=== PATIENT | female | born 1935 | race Caucasian/White ===

== ENCOUNTER 2016-06-06 16:06 | Observation (INO) | payer OTHER ==
--- NOTE | 2016-06-06 16:25 | EDPHY ---
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 She also tells me she had chest discomfort across her chest described as a "discomfort in her chest" she denies sharp pain, she does endorse shortness of breath. She decided come to the emergency room as her heart rate has been in the 120- 130s, chest discomfort, shortness of breath. Past Medical History:Atrial fib on Xarelto, pacemaker, Prinzmetal angina, sepsis Past Surgical History: left-sided pacemaker Social History: denies daily use of drugs alcohol tobacco products Family History: noncontributory ROS REVIEW OF SYSTEMS: A comprehensive 10 point review of systems is otherwise negative aside from elements mentioned in the history of present illness. Exam Constitutional triage nursing summary reviewed, vital signs reviewed, awake/ alert. Eyes normal conjunctivae and sclera, EOMI, PERRLA. HENT normal inspection, atraumatic, moist mucus membranes, no epistaxis, neck supple/ no meningismus, no raccoon eyes. Respiratory clear to auscultation bilaterally, normal breath sounds, no respiratory distress, no wheezing. Cardiovascular tachycardic, irregular, irregular rhythm no murmur, no edema, distal pulses normal. Gastrointestinal soft, non-tender, no rebound, no guarding, normal bowel sounds, no distension, no pulsatile mass. Genitourinary no CVA tenderness. Musculoskeletal bilateral lower extremity 1+ pretibial edema, no midline vertebral tenderness, full range of motion, no calf swelling, no tenderness of extremities, no meningismus, good pulses, neurovascularly intact. Skin pink, warm, & dry, no rash, skin atraumatic. Neurologic awake, alert and oriented x 3, AAOx3, moves all 4 extremities equally, motor intact, sensory intact, CN II-XII intact, normal cerebellar, normal vision, normal speech. Psychiatric normal mood/affect. Heme/Lymph/Immune no lymphadenopathy. Differential diagnosis includes but is not limited to: ACS, atypical chest pain , pneumothorax, pneumonia, pulmonary embolism, aortic dissection, congestive heart failure, tumor, musculoskeletal pain, esophageal pain, GERD, peptic ulcer disease, pancreatitis Medical Decision Making: this patient will have an IV established receive IV fluids gently, she will be given diltiazem 10 mg IV bolus, diltiazem drip and she is in AFib with RVR here, patient had an x-ray, troponin, blood work she will be evaluated for chest discomfort, shortness of breath, AFib with RVR. Most likely patient will need to be admitted due to her age, and having chest discomfort. Re-evaluation: EKG interpretation by me on record in [employer] system. Impression time of EKG 162, this is AFib rate of 118, AFib with RVR present. No ST elevation appreciated slight ST depression V4 V5. Otherwise unremarkable. this is different than previous EKG dated 07/01/2015 EKG interpretation by me on record in [employer] system. Impression time of EKG 172, this is sinus rhythm rate of 63 no acute ischemic changes. No longer in AFib. 175: this patient did receive 10 mg IV diltiazem. This converted her from AFib with RVR in the 130s over the sinus rhythm in the 60s.. ED x-ray chest one view: Clear lung hutchins, cardiac silhouette normal in size , mediastinum narrow, pacemaker left chest, pacemaker wires appropriate position. Image interpreted by myself. 181; re-evaluation at this time patient is resting comfortably no acute distress. Patient be admitted to the hospitalist service with AFib with RVR, fatigue, chest discomfort. Full-dose aspirin has been given to the patient, she is on Xarelto. Nitroglycerin as well. I do not appreciate acute ischemic change on her EKG and she has a negative troponin. Given her chest discomfort , age, history of Prinzmetal angina, AFib I will admitted to the hospital for ACS rule out serial enzymes most likely echo and stress test. I spoke with Dr. Abdalla who agrees to admit this patient Source: Patient - Personal History Current Tetanus/Diphtheria Vaccine: Unsure Current Tetanus Diphtheria and Acellular Pertussis (TDAP): Unsure - Medical/Surgical History Hx Asthma: No Hx Chronic Respiratory Disease: No Hx Diabetes: No Hx Cardiac Disease: Yes Hx Renal Disease: No Hx Cirrhosis: No Hx Alcoholism: No Hx HIV/AIDS: No Hx Splenectomy or Spleen Trauma: No Other PMH: HTN, [place], cardiac cath, bilat knee replacement, pacemaker-bradycardia , angina, retinal tear, CPAP, parathyroidectomy Jun 19 2015 - Social History Smoking Status: Never smoked Constitutional: Initial Vital Signs Temperature (C) 36.2 C 06/06/16 16:09 Heart Rate 135 H 06/06/16 16:09 Respiratory Rate 14 06/06/16 16:09 Blood Pressure 148/92 H 06/06/16 16:09 O2 Sat (%) 98 06/06/16 16:09 O2 Delivery Mode Room Air Allergies/Adverse Reactions: amlodipine besylate [From Norvas] Allergy (Severe, Verified 12/13/15 08:37) Rash adhesive tape Allergy (Intermediate, Verified 12/13/15 08:37) ITCHING BURNING RED RASH apixaban Allergy (Intermediate, Unverified 06/06/16 17:16) Other-Enter Comments iodine [Iodine] Allergy (Unknown, Verified 06/06/16 17:59) Unknown contrast Allergy (Severe, Uncoded 06/06/16 17:59) Anaphylaxis Home Medications: Medication Instructions Recorded Diltiazem HCl [Diltiazem 24Hr Cd] 240 mg PO BID 12/11/11 Loratadine [Claritin 10 mg] 10 mg PO DAILY PRN 12/11/11 Diclofenac Sodium [Voltaren Gel 1 mahnaz TP DAILY PRN 02/26/15 (*)] Hydrochlorothiazide [HCTZ (*)] 12.5 mg PO DAILY18 02/26/15 Multivitamins [Multivitamin (*)] 1 each PO DAILY 02/26/15 Calcium Carbonate [Tums 500MG (*)] 500 mg PO DAILY PRN 06/06/16 Levothyroxine [Synthroid 50 mcg 50 mcg PO DAILY06 06/06/16 (*)] Rivaroxaban [Xarelto] 20 mg PO DAILY@18 06/06/16 Medical Decision Making - Data Points Laboratory Results: Laboratory Results 06/06/16 16:36 06/06/16 16:36 06/06/16 16:36 WBC 11.23 H 10^3/uL (3.80-9.50) RBC 4.68 10^6/uL (4.18-5.33) Hgb 14.3 g/dL (12.6-16.3) Hct 42.2 % (38.0-47.0) MCV 90.2 fL (81.5-99.8) MCH 30.6 pg (27.9-34.1) MCHC 33.9 g/dL (32.4-36.7) RDW 14.6 % (11.5-15.2) Plt Count 296 10^3/uL (150-400) MPV 9.2 fL (8.7-11.7) Neut % (Auto) 42.8 % (39.3-74.2) Lymph % (Auto) 46.6 H % (15.0-45.0) [place] % (Auto) 7.3 % (4.5-13.0) Eos % (Auto) 2.3 % (0.6-7.6) Baso % (Auto) 0.8 % (0.3-1.7) Nucleat RBC Rel Count 0.0 % (0.0-0.2) Absolute Neuts (auto) 4.81 10^3/uL (1.70-6.50) Absolute Lymphs (auto) 5.23 H 10^3/uL (1.00-3.00) Absolute Monos (auto) 0.82 H 10^3/uL (0.30-0.80) Absolute Eos (auto) 0.26 10^3/uL (0.03-0.40) Absolute Basos (auto) 0.09 10^3/uL (0.02-0.10) Absolute Nucleated RBC 0.00 10^3/uL (0-0.01) Immature Gran % 0.2 % (0.0-1.1) Immature Gran # 0.02 10^3/uL (0.00-0.10) PT 15.5 H SEC (12.0-15.0) INR 1.23 H (0.83-1.16) APTT 38.4 H SEC (23.0-38.0) D-Dimer 0.33 ug/mLFEU (0.00-0.50) Sodium 138 mEq/L (134-144) Potassium 3.6 mEq/L (3.5-5.2) Chloride 97 mEq/L (97-110) Carbon Dioxide 26 mEq/l (22-31) Anion Gap 15 mEq/L (8-16) BUN 28 H mg/dL (7-23) Creatinine 1.1 H mg/dL (0.6-1.0) Estimated GFR 48 Glucose 159 H mg/dL (70-100) Calcium 9.9 mg/dL (8.5-10.4) Magnesium 2.0 mg/dL (1.6-2.3) Total Bilirubin 0.5 mg/dL (0.1-1.4) Conjugated Bilirubin 0.5 mg/dL (0.0-0.5) Unconjugated Bilirubin 0.0 mg/dL (0.0-1.1) AST 22 IU/L (14-46) ALT 36 IU/L (9-52) Alkaline Phosphatase 110 IU/L (38-126) Creatine Kinase 92 IU/L (0-156) CK-MB (CK-2) Fraction 1.87 ng/mL (0-3.19) Troponin I < 0.012 ng/mL (0-0.034) NT-Pro-B Natriuret Pep 509 H pg/mL (0-450) Total Protein 7.6 g/dL (6.3-8.2) Albumin 4.6 g/dL (3.5-5.0) Lipase 57.0 IU/L (23-300) Medications Given: Discontinued Medications Diltiazem HCl (Cardizem 25 Mg/5 Ml Vial) 10 mg IVP EDNOW ONE Stop: 06/06/16 16:44 Last Admin: 06/06/16 16:54 Dose: 10 mg Sodium Chloride (Ns) 1,000 mls @ 0 mls/hr IV ONCE ONE PRN Reason: As Directed Stop: 06/06/16 16:33 Last Admin: 06/06/16 16:41 Dose: 1,000 mls Departure - Departure Disposition: [facility] Inpatient Acute Clinical Impression: Atrial fibrillation with rapid ventricular response, Chest discomfort Condition: Fair
--- NOTE | 2016-06-06 16:28 | CPEKG ---
Heart Rate: 118 RR Interval: 508 QRSD Interval: 86 QT Interval: 344 QTC Interval: 483 QRS [place]: -43 T Wave [place]: 111 EKG Severity - ABNORMAL ECG - EKG Impression: ATRIAL FIBRILLATION EKG Impression: LEFT ANTERIOR FASCICULAR BLOCK EKG Impression: ABNORMAL T, CONSIDER ISCHEMIA, LATERAL LEADS Electronically Signed By: Chan Ramirez 06-Jun-2016 21:18:04
[2016-06-06] MEDS ORDERED: NS 1,000 ML IV ONE (16:32)
[2016-06-06 16:40] LABS: % IMMATURE GRANULYOCYTES 0.2 % (0.0-1.1); ABSOLUTE IMMATURE GRANULOCYTES 0.02 10^3/uL (0.00-0.10); ADD DIFF? NO; ADD MORPH? NO; ADD SCAN? NO; ATYPICAL LYMPHOCYTE FLAG 0 (0-99); FRAGMENT RBC FLAG 0 (0-99); HEMATOCRIT 42.2 % (38.0-47.0); HEMOGLOBIN 14.3 g/dL (12.6-16.3); LEFT SHIFT FLG 0 (0-99); LIPEMIA HEMOLYSIS FLAG 90 (0-99); MEAN CELL HEMOGLOBIN 30.6 pg (27.9-34.1); MEAN CELL HEMOGLOBIN CONCENTR. 33.9 g/dL (32.4-36.7); MEAN CELL VOLUME 90.2 fL (81.5-99.8); MEAN PLATELET VOLUME 9.2 fL (8.7-11.7); PLATELET CLUMPS FLAG 10 (0-99); PLATELET COUNT 296 10^3/uL (150-400); RED BLOOD CELL COUNT 4.68 10^6/uL (4.18-5.33); RED CELL DISTRIBUTION WIDTH 14.6 % (11.5-15.2)
[2016-06-06] MEDS ORDERED: DILTIAZEM 25 MG/5 ML VIAL IVP ONE (16:43)
[2016-06-06] MEDS ORDERED: DILTIAZEM 125 MG in D5W 125 ML IV ONE (16:43)
[2016-06-06 16:50] LABS: INR 1.23 (0.83-1.16); PROTIME(PATIENT) 15.5 SEC (12.0-15.0)
[2016-06-06 16:51] LABS: APTT 38.4 SEC (23.0-38.0)
[2016-06-06 16:57] LABS: ALANINE AMINOTRANSFERASE 36 IU/L (9-52); ALBUMIN 4.6 g/dL (3.5-5.0); ALKALINE PHOSPHATASE 110 IU/L (38-126); ANION GAP 15 mEq/L (8-16); ASPARTATE AMINOTRANSFERASE 22 IU/L (14-46); BILIRUBIN,TOTAL 0.5 mg/dL (0.1-1.4); BILIRUBIN-CONJUGATED 0.5 mg/dL (0.0-0.5); CALCIUM 9.9 mg/dL (8.5-10.4); CARBON DIOXIDE 26 mEq/l (22-31); CHLORIDE 97 mEq/L (97-110); CREATININE 1.1 mg/dL (0.6-1.0); GLOMERULAR FILTRATION RATE 48; GLUCOSE 159 mg/dL (70-100); POTASSIUM 3.6 mEq/L (3.5-5.2); SODIUM 138 mEq/L (134-144); TOTAL PROTEIN 7.6 g/dL (6.3-8.2)
--- NOTE | 2016-06-06 17:05 | DX ---
AP portable chest. June 06, 2016. 1653 hour Indication: chest discomfort. Comparison December 13, 2015. Findings: The lungs are clear. The heart size is normal. A dual-lead pacer is unchanged. Degenerative changes of the shoulders are again present. Impression: no acute cardiopulmonary process
[2016-06-06 17:09] LABS: CREATINE KINASE-MB FRACTION 1.87 ng/mL (0-3.19); TROPONIN I < 0.012 ng/mL (0-0.034)
--- NOTE | 2016-06-06 17:24 | CPEKG ---
Heart Rate: 63 RR Interval: 952 P-R Interval: 184 QRSD Interval: 88 QT Interval: 432 QTC Interval: 443 P [place]: 51 QRS [place]: -38 T Wave [place]: 65 EKG Severity - OTHERWISE NORMAL ECG - EKG Impression: SINUS RHYTHM EKG Impression: LEFT AXIS DEVIATION Electronically Signed By: Chan Ramirez 06-Jun-2016 21:18:04
[2016-06-06] MEDS ORDERED: ASPIRIN EC 325 MG TAB PO ONE (18:01)
[2016-06-06] MEDS ORDERED: NITROGLYCERIN 0.4 MG BTL SL ONE (18:08)
[2016-06-06] MEDS ORDERED: NON-FORMULARY NEW DRUG (Diclofenac Sodium [Voltaren Gel (*)] 1 APP) TP PRN (18:39)
[2016-06-06] MEDS ORDERED: CALCIUM CARBONATE 500 MG CHEWABLE TAB PO PRN (18:39)
[2016-06-06] MEDS ORDERED: NON-FORMULARY NEW DRUG (Loratadine [Claritin 10 Mg] 10 MG) PO PRN (18:39)
[2016-06-06] MEDS ORDERED: RIVAROXABAN 20 MG TAB PO SCH (18:40)
[2016-06-06] MEDS ORDERED: DILTIAZEM 30 MG TAB PO PRN (18:41)
--- NOTE | 2016-06-06 20:00 | GHP ---
[f rep st] HISTORY AND PHYSICAL DATE OF ADMISSION: 06/06/2016 CHIEF COMPLAINT: Palpitations. HISTORY OF PRESENT ILLNESS: The patient is an 80-year-old with a history significant for sick sinus syndrome and atrial fibrillation, status post pacemaker placement. She has been on diltiazem with fa irly good control. She typically is bradycardic with a heart rate in the 50s. The patient fell this morning. She was down in the basement, and she tripped over a box and fell onto some other boxes, e ventually landing on her back. She was pretty shaken up by the fall, injured her knee, but otherwise no significant injuries. She did not hit her head. She came upstairs, complained to her ab out her fall, and just felt unwell for the rest of the day. She continued to feel poorly and laid do wn about 3 p.m., when she noticed that she was getting short of breath. She started to note some pal pitations and decided to check her heart rate and blood pressure, at which time both were elevated. She tried to calm down, rechecked her blood pressure and pulse. Her blood pressure improved, but her heart rate was still increased and getting faster. About this time, her came home from the office and, since she was still short of breath and had a little bit of chest discomfort, she opted t o go to the emergency department. She states that her chest discomfort was not necessarily pain; it felt more like she had a chest cold. She denies chest pressure, chest pain, or even chest tightness. She has also have a little bit of swelling in her legs yesterday due to increased salt intake over the holidays. She also thinks she may have eaten a little more than usual over the holidays. She has a history of thyroid disease. She recently increased her Synthroid dose from 37.5 to 50 mcg daily. She ran out of her medication before the holidays. She was unable to get it refill ed, so she started taking her 's medicine, which was 75 mcg tablets. She was taking 2/3 of a tablet for several days and got her prescription refilled last week and has been on a stable dose ove r the last week. All in all, she thinks she has been on 50 mcg for at least a couple months. REVIEW OF SYSTEMS: A 10-point review of systems was done with pertinent positives present in the HPI . PAST MEDICAL HISTORY: 1. History of UT with normal angiogram, thought secondary to coronary spasm. 2. Hypothyroidism. 3. Atrial fibrillation. 4. Sick sinus syndrome, status post pacemaker placement. Typical heart rate in the 50s. 5. Sleep apnea, on CPAP. 6. Osteoarthritis. 7. Seasonal allergies. MEDICATIONS: These include Tums, Xarelto 20 mg daily, multivitamin, Claritin 10 mg as needed, Synthr oid 50 mcg daily, hydrochlorothiazide 12.5 daily, diltiazem 240 p.o. b.i.d., and Voltaren gel as need ed topically. ALLERGIES: To Norvasc, adhesive tape, apixaban, iodine, and contrast. FAMILY HISTORY: Mother from Alzheimer's disease. There was heart disease on her father's side of the family. SOCIAL HISTORY: She is . She denies tobacco use and rarely drinks alcohol, although did have some hard cider last night. PHYSICAL EXAMINATION: VITAL SIGNS: She is afebrile. Heart rate on admission was 135. She was give n 10 mg of IV diltiazem and converted to sinus rhythm with a heart rate of 62, blood pressure 135/62. She is 92% on room air. GENERAL: She is a pleasant 80-year-old woman. She is in no distress. Sh e is alert and oriented. Her speech is clear and fluent. HEENT: Atraumatic. Pupils equal, extraoc ular movements intact. Mucous membranes moist. Oropharynx clear. NECK: Supple. No adenopathy. T hyroid is within normal limits. HEART: Regular rate and rhythm. No significant murmur, gallop, or rub. She does have a pacemaker on her left chest wall. LUNGS: Clear to auscultation. No wheeze, r honchi, or rales. ABDOMEN: Soft, nontender, nondistended. No masses. EXTREMITIES: Trace edema bi lateral without clubbing or cyanosis. MUSCULOSKELETAL: No joint deformities, no significant joint e ffusions. SKIN: Intact, no rash. NEUROLOGIC: Exam is intact. LABORATORY DATA: CBC shows a white count of 11.23. H and H and platelet count are normal. INR is 1 .23. Electrolytes are normal. BUN 28 with a creatinine of 1.1. Glucose 159. The rest of her left LFTs are normal. Electrocardiogram, personally reviewed and interpreted, shows sinus rhythm with a h eart rate of 63. Electrocardiogram on admission, personally reviewed and interpreted, shows atrial f ibrillation with a heart rate of 118. Chest x-ray, personally reviewed and interpreted, shows no acu te cardiopulmonary process. ASSESSMENT AND PLAN: An 80-year-old comes in feeling generally bad with palpitations and found to be in rapid atrial fibrillation. She has since converted to sinus rhythm. 1. Atrial fibrillation in a patient with a history of sick sinus syndrome associated with shortness of breath and some chest discomfort. I suspect all of today's symptoms are related to her atrial fib rillation rather than acute coronary syndrome, but given her history, we will go ahead and monitor he r overnight, check 2 more troponins and an EKG in the a.m. If she remains in sinus rhythm and her ca rdiac workup is unremarkable, she can likely be discharged home with followup with Dr. Eliazar Silverio. If she has recurrent atrial fibrillation, we will do a trial of oral diltiazem short-acting as neede d. 2. Hypothyroidism, on replacement: We will repeat a TSH at this time. Continue her increased dose of 50 mcg daily. 3. Sleep apnea: We will attempt to get her CPAP machine functioning for tonight. 4. The rest of her medical issues are stable. 5. Last deep venous thrombosis prophylaxis: The patient is anticoagulated with Xarelto. /[id number]/MODL
[2016-06-06] MEDS ORDERED: CETIRIZINE 10 MG TAB PO PRN (20:22)
[2016-06-06] MEDS ORDERED: NON-FORMULARY NEW DRUG (Diltiazem Hcl [Diltiazem 24hr Cd] 240 MG) PO SCH (21:00)
[2016-06-06] MEDS ORDERED: HYDROCHLOROTHIAZIDE 12.5 MG CAP PO SCH (22:00)
[2016-06-06] MEDS: DILTIAZEM CD 120 MG CAP PO SCH (22:01)
[2016-06-07] MEDS ORDERED: LEVOTHYROXINE 50 MCG TAB PO SCH (06:00)
[2016-06-07] MEDS: DILTIAZEM CD 120 MG CAP PO SCH (08:28)
--- NOTE | 2016-06-07 08:57 | CPEKG ---
Heart Rate: 54 RR Interval: 1111 P-R Interval: 176 QRSD Interval: 88 QT Interval: 468 QTC Interval: 444 P [place]: 13 QRS [place]: -35 T Wave [place]: 70 EKG Severity - OTHERWISE NORMAL ECG - EKG Impression: SINUS RHYTHM EKG Impression: LEFT AXIS DEVIATION Electronically Signed By: Deny Sanchez 07-Jun-2016 21:09:40
[2016-06-07] MEDS ORDERED: MULTIVITAMINS 1 EACH TAB PO SCH (09:00)
[2016-06-07 11:41] VITALS: BP 146/64; PULSE 55; RESP 18; TEMP 98.4; O2SAT 90
--- NOTE | 2016-06-07 14:42 | HOSPPROG ---
Hospitalist Progress Note Assessment/Plan: 80 yo F w known AF here w rapid AF AF: converted dispo: home today Subjective: converted. anxious for dc Objective: Vital Signs Temp Pulse Resp BP Pulse Ox 36.9 C 55 L 18 146/64 H 90 L 06/07/16 11:37 06/07/16 11:37 06/07/16 11:37 06/07/16 11:37 06/07/16 11:37 06/06/16 06/07/16 06/08/16 05:59 05:59 05:59 Intake Total 1300 Balance 1300 PT 15.5 SEC (12.0-15.0) H 06/06/16 16:36 INR 1.23 (0.83-1.16) H 06/06/16 16:36 - Physical Exam Constitutional: no apparent distress, appears nourished Eyes: PERRL, anicteric sclera Ears, Nose, Mouth, Throat: hearing normal, ears appear normal Cardiovascular: regular rate and rhythym, no murmur, rub, or gallop Respiratory: no respiratory distress, no rales or rhonchi Gastrointestinal: normoactive bowel sounds, soft, non-tender abdomen Genitourinary: No espinoza in urethra Skin: warm, normal color Musculoskeletal: full muscle strength Neurologic: AAOx3 Psychiatric: interacting appropriately ICD10 Worksheet Patient Problems: Problems Problem Status Diagnosed Atrial fibrillation with RVR Acute Chest discomfort Acute Dizziness Acute
--- NOTE | 2016-06-07 15:12 | GDS ---
[f rep st] DISCHARGE SUMMARY DISCHARGE DIAGNOSES: 1. Symptomatic rapid atrial fibrillation. 2. Mechanical fall. 3. History of atrial fibrillation. 4. Pacemaker. 5. Hypothyroidism. HOSPITAL COURSE: Please see admission history and physical by Dr. Yessy Abdalla. The patient present ed with symptomatic atrial fibrillation after a fall. EKG confirmed this. She did not have chest pa in. She received some IV diltiazem and then some oral diltiazem, and she converted on her own. She was discharged home. She has had atrial fibrillation for a long time and is on long-acting diltiazem, as well as anticoagu lation for this. This was her first symptomatic episode. I have given her a prescription for 30 mg of diltiazem to be taken q.2 hours x2 doses for recurrent, symptomatic atrial fibrillation. /[id number]/MODL
[2016-06-07] MEDS ORDERED: HYDROCHLOROTHIAZIDE 12.5 MG CAP PO SCH (18:00)
== END 2016-06-07 15:14 | disposition home or self-care (01) ==
LOC: INTOOBSV 18:10 → F2W 20:12
PROVIDERS: ADMIT Internal Medicine; ATTEND Internal Medicine
DX: I48.91 Unspecified atrial fibrillation (principal); E03.9 Hypothyroidism, unspecified; I25.2 Old myocardial infarction; Z95.0 Presence of cardiac pacemaker; G47.33 Obstructive sleep apnea (adult) (pediatric)
CPT/HCPCS: 71010; 93005; G0378

== ENCOUNTER 2016-10-28 06:02 | Observation (INO) | payer OTHER ==
--- NOTE | 2016-10-28 06:12 | CPEKG ---
Heart Rate: 53 RR Interval: 1132 P-R Interval: 184 QRSD Interval: 86 QT Interval: 440 QTC Interval: 414 QRS [place]: -25 T Wave [place]: 61 EKG Severity - ABNORMAL ECG - EKG Impression: ATRIAL-PACED RHYTHM EKG Impression: BORDERLINE LEFT AXIS DEVIATION Electronically Signed By: Wendy Jaime 28-Oct-2016 07:27:13
[2016-10-28 06:31] LABS: % IMMATURE GRANULYOCYTES 0.4 % (0.0-1.1); ABSOLUTE IMMATURE GRANULOCYTES 0.05 10^3/uL (0.00-0.10); ADD DIFF? NO; ADD MORPH? NO; ADD SCAN? NO; ATYPICAL LYMPHOCYTE FLAG 10 (0-99); FRAGMENT RBC FLAG 0 (0-99); HEMATOCRIT 37.8 % (38.0-47.0); HEMOGLOBIN 12.7 g/dL (12.6-16.3); LEFT SHIFT FLG 0 (0-99); LIPEMIA HEMOLYSIS FLAG 80 (0-99); MEAN CELL HEMOGLOBIN 30.8 pg (27.9-34.1); MEAN CELL HEMOGLOBIN CONCENTR. 33.6 g/dL (32.4-36.7); MEAN CELL VOLUME 91.5 fL (81.5-99.8); MEAN PLATELET VOLUME 9.6 fL (8.7-11.7); PLATELET CLUMPS FLAG 0 (0-99); PLATELET COUNT 277 10^3/uL (150-400); RED BLOOD CELL COUNT 4.13 10^6/uL (4.18-5.33); RED CELL DISTRIBUTION WIDTH 14.3 % (11.5-15.2)
[2016-10-28] MEDS ORDERED: ASPIRIN 325 MG TAB PO ONE (06:32)
[2016-10-28] MEDS ORDERED: IBUPROFEN 200 MG TAB PO ONE (06:32)
--- NOTE | 2016-10-28 06:37 | EDPHY ---
H & P Stated Complaint: CHEST PAIN SINCE MIDNIGHT, SHARP NON RADIATING Time Seen by Provider: 10/28/16 06:14 HPI/ROS: HPI The patient presents with chest pain which began at midnight tonight when she was up using the bathroom. The pain is sharp, constant, in her mid chest, does not radiate. It is worse when she sits forward or lies back or if she takes a deep breath. She does not have any shortness of breath, nausea, vomiting, dizziness or diaphoresis. She has not had a cough or fever. She rates the pain as 4/10. She had a similar pain in June of 2015 which improved on its own. She is currently on Xarelto for atrial fibrillation.. REVIEW OF SYSTEMS Constitutional: No fever, no chills. Eyes: No discharge. ENT: No sore throat. Cardiovascular: See HPI Respiratory: No cough, no shortness of breath. Gastrointestinal: No abdominal pain, no vomiting. Genitourinary: No hematuria. Musculoskeletal: No back pain. Skin: No rashes. Neurological: No headache. PMHx: Atrial fibrillation on Xarelto, pacer in place, history of TX with negative cardiac catheterization, thought to be vaso spasm, followed by Dr. Silverio of [facility] Hx: Lives at home with her PHYSICAL General Appearance: Alert, no distress Eyes: Pupils equal and round no pallor or injection ENT, Mouth: Mucous membranes moist Respiratory: There are no retractions, lungs are clear to auscultation Cardiovascular: Regular rate and rhythm Gastrointestinal: Abdomen is soft and non-tender, no masses, bowel sounds normal Neurological: A&O, moves all extremities Skin: Warm and dry, no rashes Musculoskeletal: Neck is supple non tender, no chest wall tenderness Extremities: symmetrical, full range of motion Psychiatric: Patient is oriented X 3, there is no agitation Source: Patient Exam Limitations: No limitations - Personal History Current Tetanus/Diphtheria Vaccine: Unsure Current Tetanus Diphtheria and Acellular Pertussis (TDAP): Unsure - Medical/Surgical History Hx Asthma: No Hx Chronic Respiratory Disease: No Hx Diabetes: No Hx Cardiac Disease: Yes Hx Renal Disease: No Hx Cirrhosis: No Hx Alcoholism: No Hx HIV/AIDS: No Hx Splenectomy or Spleen Trauma: No Other PMH: HTN, TX, cardiac cath, bilat partial knee replacement, pacemaker- bradycardia, angina, retinal tear, CPAP, parathyroidectomy Jun 19 2015 - Social History Smoking Status: Never smoked Constitutional: Initial Vital Signs Temperature (C) 37.0 C 10/28/16 06:05 Heart Rate 54 L 10/28/16 06:05 Respiratory Rate 16 10/28/16 06:05 Blood Pressure 130/57 H 10/28/16 06:05 O2 Sat (%) 96 10/28/16 06:05 O2 Delivery Mode Room Air Allergies/Adverse Reactions: amlodipine besylate [From Norvasc] Allergy (Severe, Verified 12/13/15 08:37) Rash adhesive tape Allergy (Intermediate, Verified 12/13/15 08:37) ITCHING BURNING RED RASH apixaban Allergy (Intermediate, Verified 06/06/16 20:55) Other-Enter Comments iodine [Iodine] Allergy (Unknown, Verified 06/06/16 17:59) Unknown contrast Allergy (Severe, Uncoded 06/06/16 17:59) Anaphylaxis Home Medications: Medication Instructions Recorded Diltiazem HCl [Diltiazem 24Hr Cd] 240 mg PO BID 12/11/11 Loratadine [Claritin 10 mg] 10 mg PO DAILY PRN 12/11/11 Diclofenac Sodium [Voltaren Gel 1 mahnaz TP DAILY PRN 02/26/15 (*)] Hydrochlorothiazide [HCTZ (*)] 12.5 mg PO DAILY18 02/26/15 Multivitamins [Multivitamin (*)] 1 each PO DAILY 02/26/15 Calcium Carbonate [Tums 500MG (*)] 500 mg PO DAILY PRN 06/06/16 Levothyroxine [Synthroid 50 mcg 50 mcg PO DAILY06 06/06/16 (*)] Rivaroxaban [Xarelto] 20 mg PO DAILY@18 06/06/16 Diltiazem HCl 30 mg PO Q2 PRN #20 tablet 06/07/16 Medical Decision Making - Diagnostics EKG Interpretation: EKG: Complete interpretation has been separately recorded in the [facility] archive. Summary impression: Atrially paced rhythm with no sign of ischemia. Imaging Results: Chest x-ray two view shows no infiltrate, no cardiomegaly, interpreted by me, radiology interpretation is pending ED Course/Re-evaluation: In the emergency room, the patient was given ibuprofen and aspirin for her pain. Labs and studies were unremarkable except for an elevated troponin. Because of this, the patient should be admitted for further monitoring. I have discussed the case with Dr. Geronimo of the hospitalist service who will come to admit the patient. I have ordered her a bed in the hospital. Differential Diagnosis: This is an 81-year-old female with history of atrial fibrillation, TX thought to be related to vaso spasm who presents with chest pain since midnight tonight , it is not exertional, sharp in nature, worse with changes in position. Her pain is ongoing. Differential diagnosis includes ACS, costochondritis, pleurisy , pericardial effusion. Less likely PE given that she is currently anticoagulated on Xarelto. - Data Points Laboratory Results: Laboratory Results 10/28/16 06:20 10/28/16 10/28/16 06:20 06:20 WBC 13.89 10^3/uL H 10^3/uL (3.80-9.50) RBC 4.13 10^6/uL L 10^6/uL (4.18-5.33) Hgb 12.7 g/dL g/dL (12.6-16.3) Hct 37.8 % L % (38.0-47.0) MCV 91.5 fL fL (81.5-99.8) MCH 30.8 pg pg (27.9-34.1) MCHC 33.6 g/dL g/dL (32.4-36.7) RDW 14.3 % % (11.5-15.2) Plt Count 277 10^3/uL 10^3/uL (150-400) MPV 9.6 fL fL (8.7-11.7) Neut % (Auto) 62.7 % % (39.3-74.2) Lymph % (Auto) 27.8 % % (15.0-45.0) Woodson % (Auto) 7.5 % % (4.5-13.0) Eos % (Auto) 1.0 % % (0.6-7.6) Baso % (Auto) 0.6 % % (0.3-1.7) Nucleat RBC Rel Count 0.0 % % (0.0-0.2) Absolute Neuts (auto) 8.72 10^3/uL H 10^3/uL (1.70-6.50) Absolute Lymphs (auto) 3.86 10^3/uL H 10^3/uL (1.00-3.00) Absolute Monos (auto) 1.04 10^3/uL H 10^3/uL (0.30-0.80) Absolute Eos (auto) 0.14 10^3/uL 10^3/uL (0.03-0.40) Absolute Basos (auto) 0.08 10^3/uL 10^3/uL (0.02-0.10) Absolute Nucleated RBC 0.00 10^3/uL 10^3/uL (0-0.01) Immature Gran % 0.4 % % (0.0-1.1) Immature Gran # 0.05 10^3/uL 10^3/uL (0.00-0.10) Sodium Pending Potassium Pending Chloride Pending Carbon Dioxide Pending Anion Gap Pending BUN Pending Creatinine Pending Estimated GFR Pending Glucose Pending Calcium Pending Troponin I 0.038 ng/mL H ng/mL (0-0.034) Medications Given: Discontinued Medications Aspirin (Aspirin) 325 mg PO EDNOW ONE Stop: 10/28/16 06:33 Last Admin: 10/28/16 06:30 Dose: 325 mg Ibuprofen (Motrin) 400 mg PO EDNOW ONE Stop: 10/28/16 06:33 Last Admin: 10/28/16 06:30 Dose: 400 mg Departure - Departure Disposition: [facility] Inpatient Acute Clinical Impression: Elevated troponin Chest pain Qualifiers: Chest pain type: unspecified Qualified Code(s): R07.9 - Chest pain, unspecified Atrial fibrillation Qualifiers: Atrial fibrillation type: chronic Qualified Code(s): I48.2 - Chronic atrial fibrillation Condition: Fair Referrals: SUREKHA BISHOP [Primary Care Provider] - As per Instructions
[2016-10-28 07:12] LABS: TROPONIN I 0.015 ng/mL (0-0.034)
[2016-10-28 07:14] LABS: ANION GAP 12 mEq/L (8-16); CALCIUM 9.4 mg/dL (8.5-10.4); CARBON DIOXIDE 23 mEq/l (22-31); CHLORIDE 98 mEq/L (97-110); GLOMERULAR FILTRATION RATE 53; GLUCOSE 104 mg/dL (70-100); POTASSIUM 4.5 mEq/L (3.5-5.2); SODIUM 133 mEq/L (134-144)
[2016-10-28] MEDS ORDERED: ONDANSETRON DISINTEGRATING 4 MG TAB PO PRN (07:25)
[2016-10-28] MEDS ORDERED: ONDANSETRON 4 MG/2 ML VIAL IVP PRN (07:25)
[2016-10-28] MEDS ORDERED: ACETAMINOPHEN 500 MG TAB PO PRN (07:25)
--- NOTE | 2016-10-28 07:41 | PDGENHP ---
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 Patient states she initially felt the pain while in bed at around 1130 pm. SHe describes it as throbbing/sharp, especially pronounced with deep breathing and movement. The patient then took a dose of codeine she had, which relieved her symptoms and she went back to sleep. She then woke again at around 2am and then again felt the pain, moderately severe, nonradiating and again pleuritic in nature. Given this, she decided to come to the ED for further evaluation. Patient denies any recent fever, chills, cough or congestion, but did report a mild frontal headache yesterday during the day. She also any associated palpitations, dizziness, nausea, vomiting or diarrhea. On arrival to the ED, VS were stable, she was afebrile. Labs revealed mild leukocytosis, initial troponin negative and EKG showed paced rhythm without evidence of obvious ischemia. History Information - Allergies/Home Medication List Allergies/Adverse Reactions: amlodipine besylate [From Norvas] Allergy (Severe, Verified 12/13/15 08:37) Rash adhesive tape Allergy (Intermediate, Verified 12/13/15 08:37) ITCHING BURNING RED RASH apixaban Allergy (Intermediate, Verified 06/06/16 20:55) Other-Enter Comments iodine [Iodine] Allergy (Unknown, Verified 06/06/16 17:59) Unknown contrast Allergy (Severe, Uncoded 06/06/16 17:59) Anaphylaxis Home Medications: Diltiazem HCl [Diltiazem 24Hr Cd] 240 mg PO BID 12/11/11 [Last Taken 06/06/16 08 :00] Loratadine [Claritin 10 mg] 10 mg PO DAILY PRN 12/11/11 [Last Taken 05/30/16] Diclofenac Sodium [Voltaren Gel (*)] 1 mahnaz TP DAILY PRN 02/26/15 [Last Taken Unknown] Hydrochlorothiazide [HCTZ (*)] 12.5 mg PO DAILY18 02/26/15 [Last Taken 06/05/16] Multivitamins [Multivitamin (*)] 1 each PO DAILY 02/26/15 [Last Taken 06/06/16] Calcium Carbonate [Tums 500MG (*)] 500 mg PO DAILY PRN 06/06/16 [Last Taken Unknown] Levothyroxine [Synthroid 50 mcg (*)] 50 mcg PO DAILY06 06/06/16 [Last Taken 07/22] Rivaroxaban [Xarelto] 20 mg PO DAILY@18 06/06/16 [Last Taken 06/05/16] I have personally reviewed and updated: family history, medical history, social history, surgical history - Past Medical History Additional medical history: atrial fibrillation. hypothyroidism. sick sinus syndrome w/PPM. MALINI on CPAP nightly. Osteoarthritis. 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 parathyroidectomy. PPM placement. bilateral partial knee replacements. Toe surgery - Family History Positive for: CAD (early CAD in her Father (MO in his 30s)) - Social History Smoking Status: Never smoked Alcohol Use: Rarely Drug Use: None Additional social history: Retired clinical psychologist Review of Systems ROS: 10pt was reviewed & negative except for what was stated in HPI & below Physical Exam Temp Pulse Resp BP Pulse Ox 37.0 C 56 L 16 124/68 H 96 10/28/16 06:05 10/28/16 06:59 10/28/16 06:59 10/28/16 06:59 10/28/16 06:59 Constitutional: no apparent distress, appears nourished, uncomfortable Eyes: PERRL, anicteric sclera, EOMI Ears, Nose, Mouth, Throat: moist mucous membranes, hearing normal, ears appear normal, no oral mucosal ulcers Cardiovascular: regular rate and rhythym, no murmur, rub, or gallop, pulses symmetric bilaterally, No JVD, No edema Peripheral Pulses: 2+: dorsalis-pedis (R), dorsalis-pedis (L) Respiratory: no respiratory distress, no rales or rhonchi, clear to auscultation Gastrointestinal: normoactive bowel sounds, soft, non-tender abdomen, no palpable masses, No guarding, No rebound, No distension Genitourinary: no bladder fullness, no bladder tenderness Skin: warm, normal color, no rashes or abrasions, no fluctuance, no induration, No mottled Musculoskeletal: full muscle strength, no muscle tenderness, normal joint ROM, no joint effusions Neurologic: AAOx3, sensation intact bilaterally, CN II-XII Intact, No weakness, No numbness, No facial droop Psychiatric: interacting appropriately, not anxious, not encephalopathic, thought process linear Lab Data & Imaging Review 10/28/16 06:20 10/28/16 06:20 WBC 13.89 10^3/uL (3.80-9.50) H 10/28/16 06:20 RBC 4.13 10^6/uL (4.18-5.33) L 10/28/16 06:20 Hgb 12.7 g/dL (12.6-16.3) 10/28/16 06:20 Hct 37.8 % (38.0-47.0) L 10/28/16 06:20 MCV 91.5 fL (81.5-99.8) 10/28/16 06:20 MCH 30.8 pg (27.9-34.1) 10/28/16 06:20 MCHC 33.6 g/dL (32.4-36.7) 10/28/16 06:20 RDW 14.3 % (11.5-15.2) 10/28/16 06:20 Plt Count 277 10^3/uL (150-400) 10/28/16 06:20 MPV 9.6 fL (8.7-11.7) 10/28/16 06:20 Neut % (Auto) 62.7 % (39.3-74.2) 10/28/16 06:20 Lymph % (Auto) 27.8 % (15.0-45.0) 10/28/16 06:20 Medina % (Auto) 7.5 % (4.5-13.0) 10/28/16 06:20 Eos % (Auto) 1.0 % (0.6-7.6) 10/28/16 06:20 Baso % (Auto) 0.6 % (0.3-1.7) 10/28/16 06:20 Nucleat RBC Rel Count 0.0 % (0.0-0.2) 10/28/16 06:20 Absolute Neuts (auto) 8.72 10^3/uL (1.70-6.50) H 10/28/16 06:20 Absolute Lymphs (auto) 3.86 10^3/uL (1.00-3.00) H 10/28/16 06:20 Absolute Monos (auto) 1.04 10^3/uL (0.30-0.80) H 10/28/16 06:20 Absolute Eos (auto) 0.14 10^3/uL (0.03-0.40) 10/28/16 06:20 Absolute Basos (auto) 0.08 10^3/uL (0.02-0.10) 10/28/16 06:20 Absolute Nucleated RBC 0.00 10^3/uL (0-0.01) 10/28/16 06:20 Immature Gran % 0.4 % (0.0-1.1) 10/28/16 06:20 Immature Gran # 0.05 10^3/uL (0.00-0.10) 10/28/16 06:20 Sodium 133 mEq/L (134-144) L 10/28/16 06:20 Potassium 4.5 mEq/L (3.5-5.2) 10/28/16 06:20 Chloride 98 mEq/L (97-110) 10/28/16 06:20 Carbon Dioxide 23 mEq/l (22-31) 10/28/16 06:20 Anion Gap 12 mEq/L (8-16) 10/28/16 06:20 BUN 26 mg/dL (7-23) H 10/28/16 06:20 Creatinine 1.0 mg/dL (0.6-1.0) 10/28/16 06:20 Estimated GFR 53 10/28/16 06:20 Glucose 104 mg/dL (70-100) H 10/28/16 06:20 Calcium 9.4 mg/dL (8.5-10.4) 10/28/16 06:20 Troponin I 0.015 ng/mL (0-0.034) 10/28/16 06:20 Specimen Hemolysis 10/28/16 06:20 Visualized and Interpreted Chest x-ray results: Yes Chest X-Ray results: no infiltrate Visualized and Interpreted EKG results: Yes EKG additional interpertation: paced rhythm, no obvious ST/T wave changes Assessment & Plan Assessment: Patient is an 81 year old female with history of Afib, SSS with PPM, previous vasospasm MO (2001, clean cath at that time) who presents to the ED with complaint of sharp, pleuritic chest pain of sudden onset. Initial ED work up reveals normal EKG, negative troponin. Plan: # chest pain Patient's description of her symptoms sound consistent with pleuritic-type pain. EKG does not show obvious ischemia, no signs of pericarditis and initial troponin is negative. Will check d-dimer to r/o PE (although unlikely given full anticoagulation with xarelto), monitor serial troponins and check TTE. # h/o printzmetal angina MO Patient reports h/o MO in 2001, with clean cath, presumed to be secondary to vasospasm. She has had a normal NM stress about 1-2 years ago. Will r/o acs as described above and consider repeat stress test. # afib atrial-paced rhythm, with baseline HR in the 50 range. Will continue home meds. # Hypothyroidism cont home meds # MALINI CPAP at night. # dispo: admit to observation # gen: NPO DVT ppx: xarelto DNR
[2016-10-28] MEDS ORDERED: IBUPROFEN 600 MG TAB PO ONE ×2 (13:10→13:14)
--- NOTE | 2016-10-28 13:16 | ECHO ---
[id number] + + [address] : : [place] [address] : : [phone] + + Adult Echocardiographic Report + ------+ :Name: FELIX HERRERA Date: 10/28/2016 10:00 AM : : Hospital Admission Number: [id number] Locati on: ER: :: 1935 Gender: Female Height: 65 in : :Age: 81 yrs Race: WH Weight: 170 lb : :Reason For Study: Eval LV FX : : BSA: 1.8 meter s2 : :History: Pleuritic chest pain, Pacemaker, Positive troponins : + ------+ MMode/2D Measurements \T\ Calculations IVSd: 1.00 cm LVIDd: 4.3 cm FS: 41.6 % Ao root diam: 3.1 cm LVPWd: 0.92 cm LVIDs: 2.5 cm EDV(Teich): 80.8 ml ACS: 1.6 cm ESV(Teich): 21.9 ml EF(Teich): 72.9 % Normal Measurement Values: + + :LVIDd (3.5-5.7cm) IVSd (0.6-1.1cm) LVPWd (0.6-1.1cm) Aortic Root (2.0-3.7cm)Left Atrium (1.5-4.0cm): :LV Vol(d) (76-115ml) LV Vol(s) (29-48ml) Ejec Fraction (50-65%)PV Gianfranco (0.6- 1.2m/s) TV Gianfranco (0.4-1.0m/s) : :MV E Gianfranco (0.8-1.0m/s)MV A Gianfranco (0.3-1.0m/s)LVOT Gianfranco (0.7-1.2m/s) Asc Ao Gianfranco ( 0.9-1.8m/s) : + + Doppler Measurements \T\ Calculations MV E max gianfranco: Ao V2 max: LV V1 max: PA V2 max: 96.3 cm/sec 181.0 cm/sec 95.3 cm/sec 99.1 cm/sec MV A max gianfranco: Ao max PG: LV V1 max PG: PA max P.0 cm/sec 13.1 mmHg 3.6 mmHg 3.9 mmHg MV E/A: 0.77 TR max gianfranco: 301.0 cm/sec TR max P.2 mmHg RAP systole: 5.0 mmHg RVSP(TR): 41.2 mmHg Left Ventricle The left ventricle is normal in size. There is normal left ventricular wall thickness. The left ventricular ejection fraction is normal. There is Doppler evidence for diastolic dysfunction. Ejection Fraction = 73%. The left ventricular wall motion is normal. Right Ventricle The right ventricle is normal in size and function. There is a pacemaker lead in the right ventricle. Atria The left atrial size is normal. Right atrial size is normal. Mitral Valve There is mild mitral annular calcification. There is no evidence of mitral valve prolapse. There is no mitral valve stenosis. There is no mitral regurgitation noted. Tricuspid Valve Normal tricuspid valve. There is mild tricuspid regurgitation. Right ventricular systolic pressure is 41mmHg. There is Doppler evidence for mild pulmonary hypertension. Aortic Valve The aortic valve is normal in structure and function. There is no aortic stenosis. There is no aortic insufficiency. Pulmonic Valve The pulmonic valve is normal in structure and function. There is no pulmonic valvular regurgitation. Great Vessels The aortic root is normal size. Pericardium/Pleural There is no pericardial effusion. Conclusion A complete two-dimensional transthoracic echocardiogram was performed (2D, M-mode, Doppler and color flow Doppler). The left ventricular ejection fraction is normal. There is Doppler evidence for diastolic dysfunction. Ejection Fraction = 73%. The left ventricular wall motion is normal. The right ventricle is normal in size and function. There is a pacemaker lead in the right ventricle. The left atrial size is normal. There is mild mitral annular calcification. There is mild tricuspid regurgitation. Right ventricular systolic pressure is 41mmHg. The aortic valve is normal in structure and function. There is no pericardial effusion. Final Reading Physician: Ray Friedman signed on 10/28/2016 01:15 PM Ordering Physician: Wanda Geronimo Performed By: Martin Botello, CS
[2016-10-28] MEDS ORDERED: Propylene Glycol/Peg 400/Pf [Systane 0.3-0.4% Eye Drops] 1 EACH OP PRN (14:32)
[2016-10-28] MEDS ORDERED: CALCIUM CARBONATE 500 MG CHEWABLE TAB PO PRN (14:32)
[2016-10-28] MEDS: oxyCODONE IR 5 MG TAB PO PRN (17:43)
[2016-10-28] MEDS: RIVAROXABAN 20 MG TAB PO SCH (17:44)
[2016-10-28] MEDS: FAMOTIDINE 20 MG TAB PO SCH (17:44)
--- NOTE | 2016-10-28 18:12 | HOSPPROG ---
Hospitalist Progress Note Assessment/Plan: still w a pleuritic pain which was better after her two doses of ibuprofen in the ER. not sob at rest nothing that sounds much like angina no arrythmia on tele no fever stable vitals this could be a post viral inflammatory condition, DDimer is negative and no tachycardia or hypotension, no leg pain and on my exam no edema or chords Notably she notices some pain with swallowing, so ? if this could even be esophagitis I do not hear a rub and no ekg signs of pericarditis, nothing on echo Will continue NSAIDS and add H2 lisandro; if persists or other signs develop, may need consider checking a CT chest or even egd Objective: Vital Signs Temp Pulse Resp BP Pulse Ox 36.8 C 53 L 20 134/55 H 92 10/28/16 14:00 10/28/16 14:00 10/28/16 14:00 10/28/16 14:00 10/28/16 14:00 10/27/16 10/28/16 10/29/16 06:59 06:59 06:59 Intake Total 350 Balance 350 ICD10 Worksheet Patient Problems: Problems Problem Status Onset Atrial fibrillation Acute Chest pain Acute Elevated troponin Acute Atrial fibrillation with RVR Acute Chest discomfort Acute Dizziness Acute
[2016-10-28] MEDS: diphenhydrAMINE 50 MG CAP PO SCH (20:19)
[2016-10-28] MEDS: DILTIAZEM XR 240 MG CAP PO SCH (20:20)
[2016-10-28] MEDS ORDERED: NON-FORMULARY NEW DRUG (Diltiazem Hcl [Diltiazem 24hr Cd] 240 MG) PO SCH (21:00)
[2016-10-28 21:12] LABS: COLOR YELLOW; LEUKOCYTE ESTERASE,URINE 1+ (NEGATIVE); NITRITE,URINE NEGATIVE (NEGATIVE)
[2016-10-28 21:19] LABS: MUCUS TRACE /lpf (NONE-1+)
[2016-10-29] MEDS: LEVOTHYROXINE 50 MCG TAB PO SCH (06:27)
[2016-10-29] MEDS: HYDROCHLOROTHIAZIDE 25 MG TAB PO SCH (09:27)
[2016-10-29] MEDS: MULTIVITAMINS 1 EACH TAB PO SCH (09:28)
[2016-10-29] MEDS: DILTIAZEM XR 240 MG CAP PO SCH ×2 (09:28→20:34)
[2016-10-29] MEDS: FAMOTIDINE 20 MG TAB PO SCH (09:28)
[2016-10-29] MEDS: RIVAROXABAN 20 MG TAB PO SCH (18:01)
--- NOTE | 2016-10-29 18:13 | HOSPPROG ---
Hospitalist Progress Note Assessment/Plan: DIAGNOSES: # Cough an inflammatory chest wall pain related to acute viral illness #Onset of rapid atrial fibrillation today with history of atrial fibrillation requiring ongoing monitoring and management of rate control here in the hospital ; she is on chronic anticoagulation Will need to change to inpatient due to rapid AFib PLANS: - increased diltiazem consider adding beta lisandro if necessary - Continue conservative management of viral respiratory illness SUBJECTIVE: still with same chest pain but is decreased in severity well taking nonsteroidal anti-inflammatories Does not feel any symptoms related to the new onset of rapid atrial fibrillation which is occur today OBJECTIVE Vitals reviewed: tachycardic otherwise stable without fever Urologic Nurse, my review: rapid atrial fibrillation since this morning heart rates as high as 140s Exam: alert oriented skin warm dry color ok resps not labored lungs clear BSs heart irregular abd soft nondistended nontender, bowel sounds present limbs warm, no edema iv site ok laboratory data Her respiratory viral panel showing a rhino virus Objective: Vital Signs Temp Pulse Resp BP Pulse Ox 36.9 C 92 21 H 105/54 L 85 L 10/29/16 15:47 10/29/16 15:47 10/29/16 15:47 10/29/16 15:47 10/29/16 15:47 Microbiology 10/29/16 09:40 Respiratory Panel (PCR) - Final Nasal, Sinus - Swab No Organism Detected 10/28/16 10/29/16 10/30/16 06:59 06:59 06:59 Intake Total 475 Output Total 645 Balance -170 ICD10 Worksheet Patient Problems: Problems Problem Status Onset Atrial fibrillation Acute Chest pain Acute Elevated troponin Acute Atrial fibrillation with RVR Acute Chest discomfort Acute Dizziness Acute
[2016-10-29] MEDS: oxyCODONE IR 5 MG TAB PO PRN (20:42)
[2016-10-29] MEDS: guaiFENesin/CODEINE PHOS 10 ML UDCUP PO PRN (20:43)
[2016-10-29] MEDS: diphenhydrAMINE 50 MG CAP PO SCH (23:54)
[2016-10-30] MEDS: LEVOTHYROXINE 50 MCG TAB PO SCH (06:04)
[2016-10-30] MEDS: MULTIVITAMINS 1 EACH TAB PO SCH (07:52)
[2016-10-30] MEDS: FAMOTIDINE 20 MG TAB PO SCH (07:52)
--- NOTE | 2016-10-30 10:41 | PDDCSUM ---
Discharge Summary Discharge Summary: DISCHARGE DIAGNOSES: -Pleuritic Chest Pain, possible Pleuritis -Rapid Atrial Fibrillation - Chronic hypoxemic respiratory failure -Obstructive sleep apnea PROCEDURES: -Echocardiograom HOSPITAL COURSE SUMMARY: This patient with a history of A Fib on diltiazem and anticoag comes in with 2+ weeks of continuously present pleuritic pain in the upper anterior chest. She had had a viral sounding URI syndrome at the onset of the illness with resolution at home of all the symptoms other than the pain. She was in sinus rythym at presentation. She ruled out for UT, and has had no signs of CHF here. A D dimer was normal and PE is not suspected. Echocardiogram showed atrially paced rythym with no signs of pericarditis or other abnormality. She was treated with NSAID with very good improvement in her pain. The pain is felt to most likely be a post viral syndrome, and no further evaluation is indicated at present. We will try to stop her NSAID now due to her anticoagulation. If she has ongoing pain a steroid medication (eg prednisone) may be of benefit. During her hospital stay, she had several brief periods of asymptomatic A Fib. These were all with fairly rapid HR, into the 130s and even at times 140s. She is on 480 mg per day diltiazem which is clearly not holding her HR in check during AFib. At this point met metoprolol 25 mg twice daily will be added for rate control. In addition to the above the patient was noted to be hypoxemic here and this is felt to be chronic. She has room air oxygen saturation 85-86% at rest. She does have known sleep apnea and uses CPAP at home at night. We did discuss home oxygen therapy. She wishes to avoid home oxygen therapy at this time. We did discuss that she will probably be able to be more active with oxygen and also the hypoxemia could over time caused pulmonary hypertension and right heart failure which could cause her great difficulty. I encouraged her to follow up with her primary care physician in the near future and review the hypoxemia question and reconsider possibly using home oxygen. PENDING TEST RESULTS: none MEDICATION CHANGES: Ibuprofen 3 times daily for 2 more days Addition of metoprolol 25 mg twice daily FOLLOW-UP PLAN: with her primary care physician in 2 weeks Greater than 35 minutes bedside and care coordination time today
[2016-10-30] MEDS: HYDROCHLOROTHIAZIDE 25 MG TAB PO SCH (11:15)
[2016-10-30] MEDS: DILTIAZEM XR 240 MG CAP PO SCH (11:17)
[2016-10-30 15:36] VITALS: BP 120/47; RESP 18; TEMP 97.7; O2SAT 94
[2016-10-30] MEDS ORDERED: METOPROLOL TARTRATE 25 MG TAB PO ONE (15:38)
[2016-10-30 16:32] VITALS: PULSE 50
[2016-10-30] MEDS: guaiFENesin/CODEINE PHOS 10 ML UDCUP PO PRN (18:52)
[2016-10-30] MEDS: RIVAROXABAN 20 MG TAB PO SCH (18:53)
== END 2016-10-30 18:57 | disposition home or self-care (01) ==
LOC: F2W 13:40
PROVIDERS: ADMIT Internal Medicine; ATTEND Internal Medicine
DX: R07.81 Pleurodynia (principal); I48.91 Unspecified atrial fibrillation; J96.11 Chronic respiratory failure with hypoxia; G47.33 Obstructive sleep apnea (adult) (pediatric); E03.9 Hypothyroidism, unspecified; Z95.0 Presence of cardiac pacemaker; Z79.01 Long term (current) use of anticoagulants; Z66 Do not resuscitate
CPT/HCPCS: 71020; 93005; 93306; 99285; G0378

== ENCOUNTER 2016-11-06 14:44 | Inpatient (IN) | payer OTHER ==
--- NOTE | 2016-11-06 15:00 | EDPHY ---
HPI/HX/ROS/PE/MDM Narrative: CHIEF COMPLAINT: Cough, dyspnea HPI: This patient is an anticoagulated 81 year old female with history of chronic hypoxemic respiratory failure who presents to the Emergency Department complaining of a progressive cough increasing in severity since Monday evening, three days prior to arrival. She was recently admitted to the hospital on 10/28 for pleuritic chest pain and was discharged last Monday, 10/30, and states that she was feeling progressively better until Monday night. She reports worsening nonproductive cough with associated dyspnea at that time. Today around 1100, she began to experience worsening malaise and fever up to 101.5F measured at home at 1400, prompting her to come in. She also reports persistent centralized chest discomfort with intermittent pain radiating to her left chest. She denies dyspnea, heart palpitations, or any urinary complaints. Medical history also includes a fib and prior [place] with cardiac stenting. REVIEW OF SYSTEMS: Aside from elements discussed in the HPI, a comprehensive 10-point review of systems was reviewed and is negative apart from chronic joint pain. PMH: 1. Atrial fibrillation (Xarelto) 2. Prior [place] with stenting 3. Chronic hypoxemic respiratory failure 4. Obstructive sleep apnea 5. Remote history of pneumonia Prior medical records reviewed including visit and admission on 10/28/2016 for pleuritic chest pain which was felt to be post-viral at that time. SOCIAL HISTORY: ; lives independently with . PHYSICAL EXAM: General:Patient is alert, in no acute distress. ENT:Eyes are normal to inspection. ENT inspection normal. Neck: Normal inspection. Full range of motion. Respiratory:No respiratory distress. Breath sounds normal bilaterally. Cardiovascular: Regular rate and rhythm. Strong peripheral pulses. Normal cap refill. Abdomen:The abdomen is nontender to palpation. There are no peritoneal signs. There are normal bowel sounds. Back: Normal to inspection. No tenderness to palpation. Skin: Normal color. No rash. Warm and dry. Extremities: Normal appearance. Full range of motion. Neuro: Oriented x3. Normal motor function. Normal sensory function. ED Course: This 81-year-old female recently discharged from the hospital on 10/30 presents with complaint of worsening nonproductive cough, associated centralized chest pain, and subjective fever. She has a history of atrial fibrillation and chronic hypoxemic respiratory failure though she reports that her O2 sat has remained at baseline. She is afebrile at time of presentation at 36.8C with O2 sat 94% on RA. Lungs are clear to auscultation. Will proceed with labs including Troponin and NT-proBNP; chest x-ray; and EKG. EKG was ordered and interpreted by myself: atrial-paced rhythm, rate 58. Please see [employer] system for official reading. Chest x-ray read by Dr. Stringer and reviewed by me shows increased cardiomegaly and left lower lobe consolidation, as compared with prior study obtained on 10/29/16. This may be secondary to poor respiration at time of study. Will order additional chest x-ray. Labs reviewed. Troponin is negative. NT-proBNP is within normal range at 398. WBC is only slightly elevated at 10.41. Ambulatory pulse ox obtained: O2 saturation ranged from 89-90% but the patient became tachypneic when ambulating. I discussed lab, imaging, and EKG results with the patient. I offered her admission to the hospital or discharge home with strict precautions for return; she wishes to be admitted at this time. I believe that this is acceptable given her hypoxemia when ambulating. Repeat chest x-ray confirms increased left lower lobe consolidation. 1725: Consultation with Dr. Milligan, hospitalist, who accepts admission. - Data Points Imaging Results: Imaging Impressions Chest X-Ray 11/06/16 15:04 Impression: Increased cardiomegaly and left lower lobe consolidation possibly related to decreased inspiratory phase and change in technique Chest X-Ray 11/06/16 16:48 Impression: Progressed left lower lobe consolidation is confirmed. Laboratory Results: Laboratory Results 11/06/16 15:40 11/06/16 15:40 11/06/16 11/06/16 15:40 15:40 WBC 10.41 10^3/uL H 10^3/uL (3.80-9.50) RBC 3.83 10^6/uL L 10^6/uL (4.18-5.33) Hgb 11.7 g/dL L g/dL (12.6-16.3) Hct 35.2 % L % (38.0-47.0) MCV 91.9 fL fL (81.5-99.8) MCH 30.5 pg pg (27.9-34.1) MCHC 33.2 g/dL g/dL (32.4-36.7) RDW 14.3 % % (11.5-15.2) Plt Count 359 10^3/uL 10^3/uL (150-400) MPV 9.0 fL fL (8.7-11.7) Neut % (Auto) 76.9 % H % (39.3-74.2) Lymph % (Auto) 14.4 % L % (15.0-45.0) [place] % (Auto) 7.5 % % (4.5-13.0) Eos % (Auto) 0.5 % L % (0.6-7.6) Baso % (Auto) 0.4 % % (0.3-1.7) Nucleat RBC Rel Count 0.0 % % (0.0-0.2) Absolute Neuts (auto) 8.01 10^3/uL H 10^3/uL (1.70-6.50) Absolute Lymphs (auto) 1.50 10^3/uL 10^3/uL (1.00-3.00) Absolute Monos (auto) 0.78 10^3/uL 10^3/uL (0.30-0.80) Absolute Eos (auto) 0.05 10^3/uL 10^3/uL (0.03-0.40) Absolute Basos (auto) 0.04 10^3/uL 10^3/uL (0.02-0.10) Absolute Nucleated RBC 0.00 10^3/uL 10^3/uL (0-0.01) Immature Gran % 0.3 % % (0.0-1.1) Immature Gran # 0.03 10^3/uL 10^3/uL (0.00-0.10) Sodium 131 mEq/L L mEq/L (134-144) Potassium 3.8 mEq/L mEq/L (3.5-5.2) Chloride 98 mEq/L mEq/L (97-110) Carbon Dioxide 25 mEq/l mEq/l (22-31) Anion Gap 8 mEq/L mEq/L (8-16) BUN 27 mg/dL H mg/dL (7-23) Creatinine 1.0 mg/dL mg/dL (0.6-1.0) Estimated GFR 53 Glucose 185 mg/dL H mg/dL (70-100) Calcium 9.0 mg/dL mg/dL (8.5-10.4) Troponin I 0.024 ng/mL ng/mL (0-0.034) NT-Pro-B Natriuret Pep 398 pg/mL pg/mL (0-450) General Time Seen by Provider: 11/06/16 14:56 Initial Vital Signs: Initial Vital Signs Temperature (C) 36.8 C 11/06/16 14:47 Heart Rate 62 11/06/16 14:47 Respiratory Rate 16 11/06/16 14:47 Blood Pressure 115/61 11/06/16 14:47 O2 Sat (%) 94 11/06/16 14:47 O2 Delivery Mode Room Air Allergies/Adverse Reactions: amlodipine besylate [From Norvasc] Allergy (Severe, Verified 12/13/15 08:37) Rash adhesive tape Allergy (Intermediate, Verified 12/13/15 08:37) ITCHING BURNING RED RASH apixaban Allergy (Intermediate, Verified 06/06/16 20:55) Other-Enter Comments iodine [Iodine] Allergy (Unknown, Verified 06/06/16 17:59) Unknown contrast Allergy (Severe, Uncoded 06/06/16 17:59) Anaphylaxis Home Medications: Medication Instructions Recorded Diltiazem HCl [Diltiazem 24Hr Cd] 240 mg PO BID 12/11/11 Multivitamins [Multivitamin (*)] 1 each PO DAILY 02/26/15 Calcium Carbonate [Tums 500MG (*)] 500 mg PO DAILY PRN 06/06/16 Levothyroxine [Synthroid 50 mcg 50 mcg PO DAILY06 06/06/16 (*)] Rivaroxaban [Xarelto] 20 mg PO DAILY@18 06/06/16 Hydrochlorothiazide [HCTZ (*)] 25 mg PO DAILY 10/28/16 Propylene Glycol/Peg 400/Pf 1 each OP DAILY PRN 10/28/16 [Systane 0.3-0.4% Eye Drops] diphenhydrAMINE [Benadryl 50 MG 50 mg PO HS 10/28/16 (*)] Metoprolol Tartrate 25 mg PO BID #60 tablet 10/30/16 Departure - Departure Disposition: [facility] Acute Clinical Impression: Hypoxia, Malaise Condition: Fair Referrals: Patient,NotPresent [Primary Care Provider] - As per Instructions Report Scribed for: Hayes Dhillon Report Scribed by: Monica Barry Date of Report: 11/06/16 Time of Report: 15:00 Physician Review and Approval Statement: Portions of this note were transcribed by an ED scribe. I personally performed the history, physical exam, and medical decision making; and confirm the accuracy of the information in the transcribed note.
--- NOTE | 2016-11-06 15:20 | CPEKG ---
Heart Rate: 58 RR Interval: 1034 P-R Interval: 184 QRSD Interval: 80 QT Interval: 392 QTC Interval: 386 QRS [place]: -16 T Wave [place]: 91 EKG Severity - ABNORMAL ECG - EKG Impression: ATRIAL-PACED RHYTHM EKG Impression: BORDERLINE LEFT AXIS DEVIATION EKG Impression: BORDERLINE T ABNORMALITIES, ANT-LAT LEADS Electronically Signed By: Chan Ramirez 06-Nov-2016 18:46:49
[2016-11-06 15:47] LABS: % IMMATURE GRANULYOCYTES 0.3 % (0.0-1.1); ABSOLUTE IMMATURE GRANULOCYTES 0.03 10^3/uL (0.00-0.10); ADD DIFF? NO; ADD MORPH? NO; ADD SCAN? NO; ATYPICAL LYMPHOCYTE FLAG 10 (0-99); FRAGMENT RBC FLAG 0 (0-99); HEMATOCRIT 35.2 % (38.0-47.0); HEMOGLOBIN 11.7 g/dL (12.6-16.3); LEFT SHIFT FLG 0 (0-99); LIPEMIA HEMOLYSIS FLAG 80 (0-99); MEAN CELL HEMOGLOBIN 30.5 pg (27.9-34.1); MEAN CELL HEMOGLOBIN CONCENTR. 33.2 g/dL (32.4-36.7); MEAN CELL VOLUME 91.9 fL (81.5-99.8); PLATELET CLUMPS FLAG 0 (0-99); PLATELET COUNT 359 10^3/uL (150-400); RED BLOOD CELL COUNT 3.83 10^6/uL (4.18-5.33); RED CELL DISTRIBUTION WIDTH 14.3 % (11.5-15.2)
[2016-11-06 16:01] LABS: CARBON DIOXIDE 25 mEq/l (22-31); CHLORIDE 98 mEq/L (97-110); GLOMERULAR FILTRATION RATE 53; GLUCOSE 185 mg/dL (70-100); SODIUM 131 mEq/L (134-144)
[2016-11-06 16:06] LABS: ANION GAP 8 mEq/L (8-16); POTASSIUM 3.8 mEq/L (3.5-5.2)
[2016-11-06 16:12] LABS: TROPONIN I 0.024 ng/mL (0-0.034)
[2016-11-06] MEDS ORDERED: ALBUTEROL 3 ML DEYVIAL IH PRN (18:09)
[2016-11-06] MEDS ORDERED: GUAIFENESIN/DM 10 ML UDCUP PO PRN (18:12)
[2016-11-06] MEDS ORDERED: NS 1,000 ML IV SCH (18:15)
--- NOTE | 2016-11-06 18:19 | PDGENHP ---
History and Physical - Chief Complaint cough, CP, SOB, fever - History of Present Illness 81 yo female with h/o A fib, hypothyroidism, SSS with pacemaker, and h/o ME presents to the ED with fever, cough, and shortness of breath. She was discharged from the hospital 1 week ago after a 2 day stay for chest pain. She was worked up for cardiac etiology and had negative troponins. She was notably a bit hypoxemic and home oxygen was recommended, but she declined. She does use CPAP at night for MALINI. Since her discharge, she has continued to have chest discomfort and has developed a wet, non-productive cough, along with shortness of breath and a fever to 101 today. She denies chest pressure at this time. She has no headaches, vision changes, abdominal pain, N/V/D or changes in her bowel or bladder habits. She is found to have a LLL PNA on CXR in the ED and is admitted to the hospital for further management. History Information - Allergies/Home Medication List Allergies/Adverse Reactions: amlodipine besylate [From [facility]] Allergy (Severe, Verified 12/13/15 08:37) Rash adhesive tape Allergy (Intermediate, Verified 12/13/15 08:37) ITCHING BURNING RED RASH apixaban Allergy (Intermediate, Verified 06/06/16 20:55) Other-Enter Comments iodine [Iodine] Allergy (Unknown, Verified 06/06/16 17:59) Unknown contrast Allergy (Severe, Uncoded 06/06/16 17:59) Anaphylaxis Home Medications: Diltiazem HCl [Diltiazem 24Hr Cd] 240 mg PO BID 12/11/11 [Last Taken 10/27/16 21 :00] Multivitamins [Multivitamin (*)] 1 each PO DAILY 02/26/15 [Last Taken 10/27/16] Calcium Carbonate [Tums 500MG (*)] 500 mg PO DAILY PRN 06/06/16 [Last Taken Unknown] Levothyroxine [Synthroid 50 mcg (*)] 50 mcg PO DAILY06 06/06/16 [Last Taken ] Rivaroxaban [Xarelto] 20 mg PO DAILY@18 06/06/16 [Last Taken 10/27/16] Hydrochlorothiazide [HCTZ (*)] 25 mg PO DAILY 10/28/16 [Last Taken 10/27/16] Propylene Glycol/Peg 400/Pf [Systane 0.3-0.4% Eye Drops] 1 each OP DAILY PRN [Last Taken Unknown] diphenhydrAMINE [Benadryl 50 MG (*)] 50 mg PO HS 10/28/16 [Last Taken 10/27/16] I have personally reviewed and updated: family history, medical history, social history, surgical history - Past Medical History Additional medical history: atrial fibrillation. hypothyroidism. sick sinus syndrome w/PPM. MALINI on CPAP nightly. Osteoarthritis. 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 parathyroidectomy. PPM placement. bilateral partial knee replacements. Toe surgery - Family History Positive for: CAD (early CAD in her Father (ME in his 30s)) - Social History Smoking Status: Never smoked Alcohol Use: None Drug Use: None Additional social history: Lives independently with her , who is present at the bedside. Retired clinical psychologist Review of Systems ROS: 10pt was reviewed & negative except for what was stated in HPI & below Physical Exam Temp Pulse Resp BP Pulse Ox 36.4 C 52 L 18 130/75 H 98 11/06/16 18:02 11/06/16 18:02 11/06/16 18:02 11/06/16 18:02 11/06/16 18:02 Constitutional: no apparent distress Eyes: PERRL Ears, Nose, Mouth, Throat: moist mucous membranes Cardiovascular: regular rate and rhythym, no murmur, rub, or gallop Respiratory: no respiratory distress, reduced air movement, inspiratory crackles Gastrointestinal: normoactive bowel sounds, soft, non-tender abdomen Skin: warm Musculoskeletal: full muscle strength Neurologic: AAOx3 Psychiatric: interacting appropriately Lab Data & Imaging Review 11/06/16 15:40 11/06/16 15:40 WBC 10.41 10^3/uL (3.80-9.50) H 11/06/16 15:40 RBC 3.83 10^6/uL (4.18-5.33) L 11/06/16 15:40 Hgb 11.7 g/dL (12.6-16.3) L 11/06/16 15:40 Hct 35.2 % (38.0-47.0) L 11/06/16 15:40 MCV 91.9 fL (81.5-99.8) 11/06/16 15:40 MCH 30.5 pg (27.9-34.1) 11/06/16 15:40 MCHC 33.2 g/dL (32.4-36.7) 11/06/16 15:40 RDW 14.3 % (11.5-15.2) 11/06/16 15:40 Plt Count 359 10^3/uL (150-400) 11/06/16 15:40 MPV 9.0 fL (8.7-11.7) 11/06/16 15:40 Neut % (Auto) 76.9 % (39.3-74.2) H 11/06/16 15:40 Lymph % (Auto) 14.4 % (15.0-45.0) L 11/06/16 15:40 [place] % (Auto) 7.5 % (4.5-13.0) 11/06/16 15:40 Eos % (Auto) 0.5 % (0.6-7.6) L 11/06/16 15:40 Baso % (Auto) 0.4 % (0.3-1.7) 11/06/16 15:40 Nucleat RBC Rel Count 0.0 % (0.0-0.2) 11/06/16 15:40 Absolute Neuts (auto) 8.01 10^3/uL (1.70-6.50) H 11/06/16 15:40 Absolute Lymphs (auto) 1.50 10^3/uL (1.00-3.00) 11/06/16 15:40 Absolute Monos (auto) 0.78 10^3/uL (0.30-0.80) 11/06/16 15:40 Absolute Eos (auto) 0.05 10^3/uL (0.03-0.40) 11/06/16 15:40 Absolute Basos (auto) 0.04 10^3/uL (0.02-0.10) 11/06/16 15:40 Absolute Nucleated RBC 0.00 10^3/uL (0-0.01) 11/06/16 15:40 Immature Gran % 0.3 % (0.0-1.1) 11/06/16 15:40 Immature Gran # 0.03 10^3/uL (0.00-0.10) 11/06/16 15:40 Sodium 131 mEq/L (134-144) L 11/06/16 15:40 Potassium 3.8 mEq/L (3.5-5.2) 11/06/16 15:40 Chloride 98 mEq/L (97-110) 11/06/16 15:40 Carbon Dioxide 25 mEq/l (22-31) 11/06/16 15:40 Anion Gap 8 mEq/L (8-16) 11/06/16 15:40 BUN 27 mg/dL (7-23) H 11/06/16 15:40 Creatinine 1.0 mg/dL (0.6-1.0) 11/06/16 15:40 Estimated GFR 53 11/06/16 15:40 Glucose 185 mg/dL (70-100) H 11/06/16 15:40 Calcium 9.0 mg/dL (8.5-10.4) 11/06/16 15:40 Troponin I 0.024 ng/mL (0-0.034) 11/06/16 15:40 NT-Pro-B Natriuret Pep 398 pg/mL (0-450) 11/06/16 15:40 Visualized and Interpreted Chest x-ray results: Yes Chest X-Ray results: infiltrate Visualized and Interpreted EKG results: Yes EKG additional interpertation: atrial paced rhythm, diffusely flattened T wave compared to previous, ?lead placement Assessment & Plan Assessment: Community Acquired Pneumonia - Though she was recently hospitalized for ~48 hrs , I suspect her symptoms at that time were from this PNA, which has now declared itself with fevers, cough and radiologic changes. She does not meet SIRS criteria. -Blood cultures pending -send sputum culture -treat with Ceftriaxone and Azithro -as above, deferring HAP tx given suspicion this was already incubating at time of prior admission -check pneumococcal, legionella Ag's -check flu PCR -supplemental O2 as needed, anti-tussives, supportive care Hyponatremia - suspect hypovolemia in setting of acute illness and decreased oral intake -hydrate with NS and recheck in am H/O Prinzmetal angina [place] - negative trop. EKG shows diffuse T wave flattening, change from last week, ?lead placement -cycle trop -repeat EKG -echo last week showed nl EF with no WMA A fib - with h/o SSS, presence of pacemaker. Had some rapid A fib during recent hospitalization and Metoprolol added -soft tele -cont dilt and BB for rate control -cont oral anticoagulation for stroke prevention Hypothyroidism - cont outpt meds MALINI - cont home CPAP Full code Dispo - inpt, will likely require >48 hrs hospitalization for management of pneumonia with weakness and hyponatremia. PT/OT consults requested.
[2016-11-06] MEDS ORDERED: RIVAROXABAN 20 MG TAB PO SCH (18:48)
[2016-11-06] MEDS: BENZONATATE 100 MG CAP PO PRN (19:48)
[2016-11-06] MEDS ORDERED: NON-FORMULARY NEW DRUG (Diltiazem Hcl [Diltiazem 24hr Cd] 240 MG) PO SCH (21:00)
[2016-11-06] MEDS: ACETAMINOPHEN 325 MG TAB PO PRN (21:37)
[2016-11-06] MEDS: DILTIAZEM XR 240 MG CAP PO SCH (21:37)
[2016-11-06] MEDS: guaiFENesin 600 MG TAB.ER PO SCH (21:37)
[2016-11-06] MEDS: AZITHROMYCIN IV 500 MG in D5W 250 ML IV SCH (21:39)
[2016-11-07 04:52] LABS: % IMMATURE GRANULYOCYTES 0.2 % (0.0-1.1); ABSOLUTE IMMATURE GRANULOCYTES 0.02 10^3/uL (0.00-0.10); ADD DIFF? NO; ADD MORPH? NO; ADD SCAN? NO; ATYPICAL LYMPHOCYTE FLAG 10 (0-99); FRAGMENT RBC FLAG 0 (0-99); HEMATOCRIT 30.6 % (38.0-47.0); HEMOGLOBIN 10.4 g/dL (12.6-16.3); LEFT SHIFT FLG 0 (0-99); LIPEMIA HEMOLYSIS FLAG 90 (0-99); MEAN CELL HEMOGLOBIN 30.6 pg (27.9-34.1); MEAN PLATELET VOLUME 9.1 fL (8.7-11.7); PLATELET CLUMPS FLAG 0 (0-99); PLATELET COUNT 307 10^3/uL (150-400); RED CELL DISTRIBUTION WIDTH 14.1 % (11.5-15.2)
[2016-11-07 05:06] LABS: ANION GAP 7 mEq/L (8-16); CALCIUM 8.2 mg/dL (8.5-10.4); CARBON DIOXIDE 22 mEq/l (22-31); CHLORIDE 102 mEq/L (97-110); CREATININE 0.8 mg/dL (0.6-1.0); GLOMERULAR FILTRATION RATE > 60; GLUCOSE 129 mg/dL (70-100); POTASSIUM 3.4 mEq/L (3.5-5.2); SODIUM 131 mEq/L (134-144)
[2016-11-07] MEDS: AZITHROMYCIN IV 500 MG in D5W 250 ML IV SCH (11:17)
[2016-11-07] MEDS: LEVOTHYROXINE 50 MCG TAB PO SCH (11:17)
[2016-11-07] MEDS: guaiFENesin 600 MG TAB.ER PO SCH ×2 (11:18→21:15)
[2016-11-07] MEDS: DILTIAZEM XR 240 MG CAP PO SCH ×2 (11:18→21:14)
--- NOTE | 2016-11-07 12:12 | HOSPPROG ---
Hospitalist Progress Note Assessment/Plan: 81year old female with c/o sob and feeling ill. This is my first encounter, chart reviewed. Community Acquired Pneumonia - she was recently hospitalized for ~48 hrs, suspect her symptoms at that time were from this PNA, which has now declared itself with fevers, cough and radiologic changes. She does not meet SIRS criteria. -Blood cultures pending -send sputum culture -treat with Ceftriaxone and Azithro -as above, deferring HAP tx given suspicion this was already incubating at time of prior admission -check pneumococcal, legionella Ag's -flu PCR negative -supplemental O2 as needed, anti-tussives, supportive care Hyponatremia - suspect hypovolemia in setting of acute illness and decreased oral intake -hydrate with NS and recheck in am H/O Prinzmetal angina [place] - negative trop. EKG shows diffuse T wave flattening, change from last week, ?lead placement -cycle trop negative -echo last week showed nl EF with no WMA A fib - with h/o SSS, presence of pacemaker. Had some rapid A fib during recent hospitalization and Metoprolol added -soft tele -cont dilt and BB for rate control -cont oral anticoagulation for stroke prevention Hypothyroidism - cont outpt meds MALINI - cont home CPAP Full code Dispo - inpt, will likely require >48 hrs hospitalization for management of pneumonia with weakness and hyponatremia. PT/OT consults requested. Subjective: Feeling crummy. No pain. No appetite. Objective: Vital Signs Temp Pulse Resp BP Pulse Ox 36.8 C 55 L 16 131/62 H 93 11/07/16 04:00 11/07/16 11:18 11/07/16 04:00 11/07/16 11:18 11/07/16 04:00 Laboratory Results 11/07/16 04:45 11/07/16 04:45 - Physical Exam Constitutional: appears nourished, not in pain, uncomfortable Eyes: PERRL, anicteric sclera, EOMI Ears, Nose, Mouth, Throat: moist mucous membranes, hearing normal, ears appear normal Cardiovascular: No JVD, No tachycardia, No edema Respiratory: no respiratory distress, no rales or rhonchi, reduced air movement Gastrointestinal: No tenderness, No ascites, No guarding Skin: warm, normal color, No erythema Musculoskeletal: normal joint ROM, no joint effusions, generalized weakness Neurologic: AAOx3 Psychiatric: not anxious, not encephalopathic, thought process linear ICD10 Worksheet Patient Problems: Problems Problem Status Onset Dizziness Acute Chest discomfort Acute Atrial fibrillation with RVR Acute Chest pain Acute Atrial fibrillation Acute Elevated troponin Acute Hypoxia Acute Malaise Acute
[2016-11-07] MEDS: IBUPROFEN 600 MG TAB PO PRN ×2 (14:25→21:15)
[2016-11-07] MEDS: RIVAROXABAN 15 MG TAB PO SCH (17:26)
[2016-11-08] MEDS: ACETAMINOPHEN 325 MG TAB PO PRN (00:20)
[2016-11-08] MEDS: ONDANSETRON DISINTEGRATING 4 MG TAB PO PRN ×2 (03:05→20:44)
[2016-11-08] MEDS: LEVOTHYROXINE 50 MCG TAB PO SCH (04:57)
[2016-11-08] MEDS: BENZONATATE 100 MG CAP PO PRN (04:57)
[2016-11-08] MEDS: DILTIAZEM XR 240 MG CAP PO SCH ×2 (07:31→19:01)
[2016-11-08] MEDS: guaiFENesin 600 MG TAB.ER PO SCH ×2 (09:01→20:14)
[2016-11-08] MEDS: AZITHROMYCIN IV 500 MG in D5W 250 ML IV SCH (09:57)
--- NOTE | 2016-11-08 10:35 | HOSPPROG ---
Hospitalist Progress Note Assessment/Plan: 81year old female with c/o sob and feeling ill. Community Acquired Pneumonia - she was recently hospitalized for ~48 hrs, suspect her symptoms at that time were from this PNA, which has now declared itself with fevers, cough and radiologic changes. She does not meet SIRS criteria. -Blood cultures NGTD -send sputum culture -treat with Ceftriaxone and Azithro -as above, deferring HAP tx given suspicion this was already incubating at time of prior admission -check pneumococcal, legionella Ag's -flu PCR negative -supplemental O2 as needed, anti-tussives, supportive care Hyponatremia - suspect hypovolemia in setting of acute illness and decreased oral intake -hydrate with NS H/O Prinzmetal angina [place] - negative trop. EKG shows diffuse T wave flattening, change from last week, ?lead placement -cycle trop negative -echo last week showed nl EF with no WMA A fib - with h/o SSS, presence of pacemaker. Had some rapid A fib during recent hospitalization and Metoprolol added -soft tele, stable -cont dilt and BB for rate control -cont oral anticoagulation for stroke prevention, xarelto Hypothyroidism - cont outpt meds MALINI - cont home CPAP Full code Dispo - inpt, will likely require >48 hrs hospitalization for management of pneumonia with weakness and hyponatremia. PT/OT consults requested. Subjective: Still feeling weak. Better then yesterday but not well. Eating better. Objective: Vital Signs Temp Pulse Resp BP Pulse Ox 36.6 C 58 L 16 132/64 H 93 11/08/16 07:22 11/08/16 07:31 11/08/16 07:22 11/08/16 07:31 11/08/16 07:22 Laboratory Results 11/07/16 04:45 11/07/16 04:45 11/07/16 11/08/16 11/09/16 05:59 05:59 05:59 Intake Total 2410 Output Total 750 Balance 1660 - Physical Exam Constitutional: appears nourished, not in pain Eyes: PERRL, anicteric sclera Ears, Nose, Mouth, Throat: moist mucous membranes, hearing normal Cardiovascular: No JVD, No edema Respiratory: no respiratory distress, reduced air movement Gastrointestinal: No tenderness, No ascites Skin: warm, normal color Musculoskeletal: no joint effusions, generalized weakness Neurologic: AAOx3 Psychiatric: interacting appropriately, not anxious, not encephalopathic ICD10 Worksheet Patient Problems: Problems Problem Status Onset Chronic Disease Mgmt/Transitional Care Acute Dizziness Acute Chest discomfort Acute Atrial fibrillation with RVR Acute Chest pain Acute Atrial fibrillation Acute Elevated troponin Acute Hypoxia Acute Malaise Acute
[2016-11-08] MEDS: IBUPROFEN 600 MG TAB PO PRN ×2 (11:16→21:39)
[2016-11-08] MEDS: RIVAROXABAN 15 MG TAB PO SCH (18:15)
[2016-11-08] MEDS ORDERED: METOPROLOL TARTRATE 5 MG/5 ML INJ IVP ONE (19:22)
--- NOTE | 2016-11-08 19:26 | HOSPPROG ---
Hospitalist Progress Note Assessment/Plan: Patient's HR increased from a paced rhythm in the 50s to Afib RVR 100-120s, SBP 110s, symptomatic shortness of breath/tachypnea. Patient reports this is the type of symptom she has experienced in past w/ Afib RVR. She has taken her dilt 240mg bid dose this evening, and she is no longer on metoprolol 2/2 GI upset. Exam significant for NO wheezes, no notable crackles either, is tachypneic. Most likely cause of symptoms is Afib RVR, give 2.5mg IV metop now to bring down rate immediately, and dose coreg 3.125mg bid thereafter. Patient agreeable to plan, RNs/RT at bedside, no indication for further imaging as she does not appear to be in CHF and she is not at risk of PE while on therapeutic xarelto. Objective: Vital Signs Temp Pulse Resp BP Pulse Ox 36.8 C 117 H 16 114/74 90 L 11/08/16 15:03 11/08/16 19:01 11/08/16 15:03 11/08/16 19:01 11/08/16 15:03 Laboratory Results 11/07/16 04:45 11/07/16 04:45 11/07/16 11/08/16 11/09/16 05:59 05:59 05:59 Intake Total 2410 1000 Output Total 750 350 Balance 1660 650 ICD10 Worksheet Patient Problems: Problems Problem Status Onset Chronic Disease Mgmt/Transitional Care Acute Hypoxia Acute Malaise Acute Atrial fibrillation Acute Atrial fibrillation with RVR Acute Chest discomfort Acute Chest pain Acute Dizziness Acute Elevated troponin Acute
[2016-11-08] MEDS: CARVEDILOL 3.125 MG TAB PO SCH (20:12)
[2016-11-08] MEDS ORDERED: MAGNESIUM SULF 2 GM/WATER 50 ML IV ONE (21:27)
[2016-11-08] MEDS ORDERED: POTASSIUM CL 20 MEQ TAB PO ONE (21:27)
[2016-11-08] MEDS: guaiFENesin/CODEINE PHOS 10 ML UDCUP PO PRN (21:39)
[2016-11-08] MEDS: POTASSIUM Cl (KCl) 100 ML IV SCH (21:50)
[2016-11-08] MEDS: ONDANSETRON 4 MG/2 ML VIAL IVP PRN (22:28)
[2016-11-09] MEDS ORDERED: IPRATROPIUM/ALBUTEROL 3 ML DEYVIAL IH SCH
[2016-11-09] MEDS ORDERED: POTASSIUM Cl (KCl) 100 ML IV ONE (02:00)
[2016-11-09] MEDS: POTASSIUM Cl (KCl) 100 ML IV SCH (02:11)
[2016-11-09] MEDS: guaiFENesin/CODEINE PHOS 10 ML UDCUP PO PRN (02:41)
[2016-11-09] MEDS: LEVOTHYROXINE 50 MCG TAB PO SCH (04:53)
[2016-11-09 05:07] LABS: % IMMATURE GRANULYOCYTES 0.4 % (0.0-1.1); ABSOLUTE IMMATURE GRANULOCYTES 0.05 10^3/uL (0.00-0.10); ADD DIFF? NO; ADD MORPH? NO; ADD SCAN? NO; ATYPICAL LYMPHOCYTE FLAG 0 (0-99); FRAGMENT RBC FLAG 0 (0-99); HEMATOCRIT 32.5 % (38.0-47.0); HEMOGLOBIN 11.3 g/dL (12.6-16.3); LEFT SHIFT FLG 10 (0-99); LIPEMIA HEMOLYSIS FLAG 90 (0-99); MEAN CELL HEMOGLOBIN 31.2 pg (27.9-34.1); MEAN CELL HEMOGLOBIN CONCENTR. 34.8 g/dL (32.4-36.7); MEAN CELL VOLUME 89.8 fL (81.5-99.8); MEAN PLATELET VOLUME 9.3 fL (8.7-11.7); PLATELET CLUMPS FLAG 10 (0-99); PLATELET COUNT 345 10^3/uL (150-400); RED BLOOD CELL COUNT 3.62 10^6/uL (4.18-5.33)
[2016-11-09 05:47] LABS: ANION GAP 9 mEq/L (8-16); CALCIUM 8.5 mg/dL (8.5-10.4); CARBON DIOXIDE 19 mEq/l (22-31); CHLORIDE 99 mEq/L (97-110); CREATININE 0.9 mg/dL (0.6-1.0); GLOMERULAR FILTRATION RATE > 60; GLUCOSE 158 mg/dL (70-100); MAGNESIUM 2.9 mg/dL (1.6-2.3); POTASSIUM 5.2 mEq/L (3.5-5.2); SODIUM 127 mEq/L (134-144)
[2016-11-09 05:54] LABS: TROPONIN I < 0.012 ng/mL (0-0.034)
[2016-11-09] MEDS: DILTIAZEM XR 240 MG CAP PO SCH ×2 (07:00→20:31)
[2016-11-09] MEDS: CARVEDILOL 3.125 MG TAB PO SCH ×2 (08:36→17:50)
[2016-11-09] MEDS: guaiFENesin 600 MG TAB.ER PO SCH ×2 (08:36→20:28)
[2016-11-09] MEDS ORDERED: FUROSEMIDE 20 MG/2 ML VIAL IVP ONE ×2 (08:51→19:57)
[2016-11-09] MEDS: AZITHROMYCIN IV 500 MG in D5W 250 ML IV SCH (09:36)
[2016-11-09] MEDS ORDERED: CALCIUM CARBONATE 500 MG CHEWABLE TAB PO PRN (09:48)
[2016-11-09] MEDS ORDERED: Propylene Glycol/Peg 400/Pf [Systane 0.3-0.4% Eye Drops] 1 EACH OP PRN (09:48)
[2016-11-09] MEDS ORDERED: LEVALBUTEROL 0.63 MG/3 ML DEYVIAL IH PRN (09:48)
[2016-11-09] MEDS: ONDANSETRON 4 MG/2 ML VIAL IVP PRN (10:23)
[2016-11-09] MEDS: HYDROCHLOROTHIAZIDE 25 MG TAB PO SCH ×2 (10:27→12:54)
--- NOTE | 2016-11-09 11:19 | CPEKG ---
Heart Rate: 80 RR Interval: 750 QRSD Interval: 140 QT Interval: 388 QTC Interval: 448 QRS [place]: 99 T Wave [place]: -74 EKG Severity - ABNORMAL ECG - EKG Impression: ACCELERATED JUNCTIONAL RHYTHM ,PACEMAKER ACTIVITY EKG Impression: NONSPECIFIC INTRAVENTRICULAR CONDUCTION DELAY EKG Impression: EXTENSIVE ANTERIOR INFARCT, RECENT Electronically Signed By: Niko Weiner 09-Nov-2016 15:07:10
--- NOTE | 2016-11-09 11:44 | PDCARCONS ---
Cardiology Consult Reason for Consult: Hypotension with diaphoresis Chief Complaint: "I feel badly" Requesting Physician: Hospitalists History of Present Illness: Patient is an 81 y/o female with history of HTN, MALINI with CPAP use, pAF (on Xarelto with [id number] score of 5), and SSS s/p PPM, who presents back to [facility] with complaints of cough and shortness of breath, about one week post discharge from the hospital for Community Acquired Pneumonia (with two day admission). Patient was admitted about three days prior to today, and has "felt poorly" during this admission. When the patient was seen this morning by cardiology, however, there was an acute change in the patient's status - lethary and diaphoresis. No complaints of chest pains have been noted. No PND or orthopnea , but mental status was clearly altered. Blood pressure was acutely noted to be hypotensive (80's/50's). Mentition was grossly intact, but slowed. and family were present in the room. Outpatient testing with [facility] ([facility] from 01-22-16) was reviewed, as well as the last several outpatient notes from my partner (Dr. Nicanor Silverio). Echocardiogram from 10-28-16 with normal left ventricular systolic ejection fraction and NO pericardial effusion. Limited echocardiogram today with moderate to large pericardial effusion with tamponade physiology. Large left sided pleural effusion was also noted. Remainder of the 12 point review of systems, outside of that which was documented above, is unremarkable. History Information - Allergies/Home Medication List Allergies/Adverse Reactions: amlodipine besylate [From [facility]] Allergy (Severe, Verified 12/13/15 08:37) Rash adhesive tape Allergy (Intermediate, Verified 12/13/15 08:37) ITCHING BURNING RED RASH apixaban Allergy (Intermediate, Verified 06/06/16 20:55) Other-Enter Comments iodine [Iodine] Allergy (Unknown, Verified 06/06/16 17:59) Unknown contrast Allergy (Severe, Uncoded 06/06/16 17:59) Anaphylaxis Home Medications: Diltiazem HCl [Diltiazem 24Hr Cd] 240 mg PO BID 12/11/11 [Last Taken 10/27/16 21 :00] Multivitamins [Multivitamin (*)] 1 each PO DAILY 02/26/15 [Last Taken 10/27/16] Calcium Carbonate [Tums 500MG (*)] 500 mg PO DAILY PRN 06/06/16 [Last Taken Unknown] Levothyroxine [Synthroid 50 mcg (*)] 50 mcg PO DAILY06 06/06/16 [Last Taken ] Rivaroxaban [Xarelto] 20 mg PO DAILY@18 06/06/16 [Last Taken 10/27/16] Hydrochlorothiazide [HCTZ (*)] 25 mg PO DAILY 10/28/16 [Last Taken 10/27/16] Propylene Glycol/Peg 400/Pf [Systane 0.3-0.4% Eye Drops] 1 each OP HS PRN [Last Taken Unknown] diphenhydrAMINE [Benadryl 50 MG (*)] 50 mg PO HS 10/28/16 [Last Taken 10/27/16] Herbals/Supplements -Info Only 1 ea PO DAILY 11/06/16 [Last Taken Unknown] I have personally reviewed and updated: family history, medical history, social history, surgical history - Past Medical History atrial fibrillation, hypertension, myocardial infarction ([employer]) Additional medical history: Sick sinus syndrome - Surgical History Reports: pacemaker/AICD Additional surgical history: bilateral knee surgeries - Social History Smoking Status: Never smoked Alcohol Use: None Drug Use: None Cardiac History - Cardiac History Past Cardiac History: OTHER ([employer]'s angina) Cardiac Risk Factors: hypertension (>140/90) Timing/Duration: Days Severity: severe Severity Scale: 10 Location: abdomen Activities at Onset: activity Modifying Factors: improves with: movement, oxygen, rest Associated Symptoms: cough, diaphoresis, malaise, shortness of breath, weakness BANDAR Risk Evaluation age greater or equal to 65: yes greater or equal to 3 CAD risk factors: yes known CAD(stenosis greater or eqaul to 50%): no ASA use in past 7 days: no severe angina(greater or equal to 2 episodes in 24hrs): no EKG ST changes greater or equal to 0.5mm: no positive cardiac marker: no Total Score: 2 BANDAR Score: 8.3% risk Physical Exam Temp Pulse Resp BP Pulse Ox 36.5 C 80 27 H 82/52 L 94 11/09/16 11:16 11/09/16 11:16 11/09/16 11:16 11/09/16 11:16 11/09/16 08:00 O2 (L/minute) 3 Constitutional: uncomfortable, other (acutely ill) Eyes: PERRL Ears, Nose, Mouth, Throat: moist mucous membranes, hearing normal Cardiovascular: regular rate and rhythym, no murmur, rub, or gallop, JVD, pulses symmetric bilaterally Peripheral Pulses: 1+: dorsalis-pedis (R), dorsalis-pedis (L) Respiratory: no respiratory distress, reduced air movement Gastrointestinal: soft, non-tender abdomen Skin: other (diaphoretic and cool) Musculoskeletal: no muscle tenderness Neurologic: weakness, CN II-XII Intact Psychiatric: not anxious (slowed thought) Lab and Imaging 11/09/16 11:40 11/09/16 04:50 WBC 12.67 10^3/uL (3.80-9.50) H 11/09/16 04:50 RBC 3.62 10^6/uL (4.18-5.33) L 11/09/16 04:50 Hgb 11.3 g/dL (12.6-16.3) L 11/09/16 04:50 Hct 32.5 % (38.0-47.0) L 11/09/16 04:50 MCV 89.8 fL (81.5-99.8) 11/09/16 04:50 MCH 31.2 pg (27.9-34.1) 11/09/16 04:50 MCHC 34.8 g/dL (32.4-36.7) 11/09/16 04:50 RDW 14.0 % (11.5-15.2) 11/09/16 04:50 Plt Count 345 10^3/uL (150-400) 11/09/16 04:50 MPV 9.3 fL (8.7-11.7) 11/09/16 04:50 Neut % (Auto) 83.3 % (39.3-74.2) H 11/09/16 04:50 Lymph % (Auto) 8.7 % (15.0-45.0) L 11/09/16 04:50 [place] % (Auto) 7.3 % (4.5-13.0) 11/09/16 04:50 Eos % (Auto) 0.1 % (0.6-7.6) L 11/09/16 04:50 Baso % (Auto) 0.2 % (0.3-1.7) L 11/09/16 04:50 Nucleat RBC Rel Count 0.0 % (0.0-0.2) 11/09/16 04:50 Absolute Neuts (auto) 10.55 10^3/uL (1.70-6.50) H 11/09/16 04:50 Absolute Lymphs (auto) 1.10 10^3/uL (1.00-3.00) 11/09/16 04:50 Absolute Monos (auto) 0.93 10^3/uL (0.30-0.80) H 11/09/16 04:50 Absolute Eos (auto) 0.01 10^3/uL (0.03-0.40) L 11/09/16 04:50 Absolute Basos (auto) 0.03 10^3/uL (0.02-0.10) 11/09/16 04:50 Absolute Nucleated RBC 0.00 10^3/uL (0-0.01) 11/09/16 04:50 Immature Gran % 0.4 % (0.0-1.1) 11/09/16 04:50 Immature Gran # 0.05 10^3/uL (0.00-0.10) 11/09/16 04:50 VBG Lactic Acid 1.1 mmol/L (0.7-2.1) 11/09/16 11:00 Sodium 127 mEq/L (134-144) L 11/09/16 04:50 Potassium 5.2 mEq/L (3.5-5.2) 11/09/16 04:50 Chloride 99 mEq/L (97-110) 11/09/16 04:50 Carbon Dioxide 19 mEq/l (22-31) L 11/09/16 04:50 Anion Gap 9 mEq/L (8-16) 11/09/16 04:50 BUN 28 mg/dL (7-23) H 11/09/16 04:50 Creatinine 0.9 mg/dL (0.6-1.0) 11/09/16 04:50 Estimated GFR > 60 11/09/16 04:50 Glucose 158 mg/dL (70-100) H 11/09/16 04:50 Calcium 8.5 mg/dL (8.5-10.4) 11/09/16 04:50 Magnesium 2.9 mg/dL (1.6-2.3) H 11/09/16 04:50 Troponin I < 0.012 ng/mL (0-0.034) 11/09/16 04:50 NT-Pro-B Natriuret Pep 1220 pg/mL (0-450) H 11/09/16 04:50 Influenza A & B (PCR) NEGATIVE FOR FLU (NEGATIVE) 11/06/16 21:51 Visualized and Interpreted Chest x-ray results: Yes Chest X-ray Interpretation: other (cardiomegaly) Visualized and Interpreted EKG results: Yes EKG additional interpertation: junctional rhythm Telemetry: junctional rhythm Echocardiogram: New, large left pleural effusion. Moderate to large pericardial effusion. (+) tamponade physiology A/P Assessment: 81 y/o female with history of SSS s/p PPM, HTN, pAF (on anticoag with Xarelto, last dose 18:00, [id number] score of 5) with large left pleural effusion and a moderate to large pericardial effusion (new). Haemodynamic compromise is being noted with hypotension and diaphoresis. No cardiac biomarker elevation is noted. Grossly normal systolic function (in the midst of the tamponade physiology). Plan: (1) Transfer to the ICU (2) Will take urgently to the boat laborer for pericardiocentesis (3) FFP has been ordered in light of Xarelto at 18:00 last night and the urgent need to perform this invasive procedure (4) Fluids will be sent to lab (5) Further recommendations to follow - would consider having interventional radiology tap the pleural fluid as well
[2016-11-09 11:52] LABS: HEMATOCRIT 31.7 % (38.0-47.0); HEMOGLOBIN 10.6 g/dL (12.6-16.3); MEAN CELL HEMOGLOBIN CONCENTR. 33.4 g/dL (32.4-36.7); MEAN CELL VOLUME 92.7 fL (81.5-99.8); RED BLOOD CELL COUNT 3.42 10^6/uL (4.18-5.33); RED CELL DISTRIBUTION WIDTH 14.4 % (11.5-15.2)
[2016-11-09] MEDS ORDERED: MIDAZOLAM 2 MG/2 ML VIAL ONE (12:01)
[2016-11-09] MEDS ORDERED: LIDOCAINE 1% 300 MG/30 ML SDV ONE (12:01)
[2016-11-09] MEDS ORDERED: fentaNYL 100 MCG/2 ML INJ ONE (12:01)
[2016-11-09 12:08] LABS: ANION GAP 7 mEq/L (8-16); CARBON DIOXIDE 20 mEq/l (22-31); CHLORIDE 97 mEq/L (97-110); GLOMERULAR FILTRATION RATE 53; GLUCOSE 238 mg/dL (70-100); MAGNESIUM 2.5 mg/dL (1.6-2.3); SODIUM 124 mEq/L (134-144)
[2016-11-09 12:16] LABS: CREATINE KINASE-MB FRACTION 0.94 ng/mL (0-3.19)
--- NOTE | 2016-11-09 13:04 | SUROPNOTE ---
[facility] Operative Report - Surgery PROCEDURE: PERICARDIOCENTESIS (ECHO AND FLUORO GUIDED) INDICATION: PERICARDIAL TAMPONADE DETAILS: After consent was urgently obtained, and risks/benefits were discussed - there being more elevated risks with this procedure given the patient's dosing of Xarelto at 18:00 last night. signed consent, and the patient was brought to the laborer heading. Local anesthetic was placed to the sub xyphoid region. Under echocardiographic visualization, a Cook needle was used to access the pericardial space. With fluoroscopy, a wire was easily advanced into the pericardium and the needle was removed. A dilator was place prior to the placement of the drain. Easy negative pull on 60 cc syringe with 750 cc of bloody fluid removed. With echocardiography, the pericardial effusion ceased to be present. Normal RV/RA expansion and function were noted. The drain catheter was sutured into position, and the patient was sent back to the ICU for monitoring. No complications were appreciated The patient tolerated the procedure very well.
[2016-11-09 13:17] LABS: TROPONIN I < 0.012 ng/mL (0-0.034)
[2016-11-09] MEDS ORDERED: ALTEPLASE 2 MG VIAL IVP PRN (13:42)
--- NOTE | 2016-11-09 13:51 | HOSPPROG ---
Hospitalist Progress Note Assessment/Plan: 81year old female with c/o sob and feeling ill. Community Acquired Pneumonia - she was recently hospitalized for ~48 hrs, unclear if this is actually PNA -Blood cultures NGTD -has been getting Ceftriaxone and Azithro -as above, deferring HAP tx given suspicion this was already incubating at time of prior admission -check pneumococcal, legionella Ag's pending -flu PCR negative -supplemental O2 as needed, anti-tussives, supportive care Pericardial effusion to calibration laboratory technician consult cards transfer to ICU Pleural effusion diuresis Hypotension pericardial effusion Afib with RVR pt has pacer consult cards need rate controlling meds, doesn't tolerate lopressor D/W Dr Jett Hyponatremia - fluid shift -hydrate with NS Hypermagnesium related to replacement DC and follow H/O Prinzmetal angina IL - negative trop. EKG shows diffuse T wave flattening, change from last week, -cycle trop negative -echo last week showed nl EF with no WMA -echo today, pericardial effusion A fib - with h/o SSS, presence of pacemaker. Had some rapid A fib during recent hospitalization and Metoprolol added -pt not taking, not toleratin -cont dilt -cont oral anticoagulation for stroke prevention, xarelto Hypothyroidism - cont outpt meds MALINI - cont home CPAP Full code Dispo - inpt, will likely require >48 hrs hospitalization for management of pneumonia with weakness and hyponatremia. PT/OT consults requested. at bedside, D/W Dr Quiros Subjective: Was doing fine this am then became ill, nauseous and SOB. Objective: Vital Signs Temp Pulse Resp BP Pulse Ox 36.5 C 80 26 H 115/73 100 11/09/16 11:16 11/09/16 13:00 11/09/16 12:11 11/09/16 13:00 11/09/16 13:00 Laboratory Results 11/09/16 11:40 11/09/16 11:40 11/08/16 11/09/16 11/10/16 05:59 05:59 05:59 Intake Total 2410 1250 Output Total 750 750 Balance 1660 500 PT REJ 11/09/16 11:40 INR REJ 11/09/16 11:40 - Physical Exam Constitutional: appears nourished, not in pain, uncomfortable Eyes: PERRL, anicteric sclera, EOMI Ears, Nose, Mouth, Throat: moist mucous membranes, hearing normal, ears appear normal Cardiovascular: tachycardia, edema, No regular rate and rhythym Respiratory: reduced air movement, expiratory wheeze, respiratory distress, rhonchi Gastrointestinal: No tenderness, No ascites, No guarding Skin: warm, normal color, No erythema Musculoskeletal: normal joint ROM, no joint effusions, generalized weakness Neurologic: AAOx3 Psychiatric: interacting appropriately, not encephalopathic, thought process linear ICD10 Worksheet Patient Problems: Problems Problem Status Onset Chronic Disease Mgmt/Transitional Care Acute Dizziness Acute Chest discomfort Acute Atrial fibrillation with RVR Acute Chest pain Acute Atrial fibrillation Acute Elevated troponin Acute Hypoxia Acute Malaise Acute
[2016-11-09 13:57] LABS: PROCALCITONIN 0.18 ng/mL (0.02-0.10)
[2016-11-09 14:48] LABS: BODY FLUID PROTEIN PERICARDIAL FLUID
--- NOTE | 2016-11-09 16:58 | ECHO ---
[id number] + + [address] : : [place] [address] : : [phone] + + Adult Echocardiographic Report + + :Name: FELIX HERRERA Study Date: 11/09/2016 11:29 AM : : Hospital Admission Number: [id number] : :: 1935 Gender: Female : :Age: 81 yrs Race: WH : :Reason For Study: Eval EF/lethargy : + + Left Ventricle Left ventricular systolic function is normal. Right Ventricle There is a pacemaker lead in the right ventricle. Pericardium/Pleural Moderate to severe pericardial effusion. Diastolic slight RA/RV collapse visualized. Left pleural effusion. Conclusion Limited 2-D echo. Left pleural effusion. Moderate to severe pericardial effusion. Diastolic slight RA/RV collapse visualized. Left ventricular systolic function is normal. Final Reading Physician: Ray Jameson signed on 11/09/2016 04:57 PM Ordering Physician: Evangelist Bermeo Performed By: Jennifer Rendon, [facility]
--- NOTE | 2016-11-09 16:59 | ECHO ---
[id number] + + [address] : : [place] [address] : : [phone] + + Adult Echocardiographic Report + + :Name: FELIX HERRERA Date: 11/09/2016 12:28 PM : : Hospital Admission Number: [id number] Locati on: label sewer: :: 1935 Gender: Female : :Age: 81 yrs Race: WH : :Reason For Study: Eval pericardial fluid : :History: Pericardial Effusion : + + Pericardium/Pleural 750cc of pericardial fluid was removed during the pericardiocentisis. Conclusion This is a limited echo to evaluate pericardial fluid during a pericardiocentisis. Final Reading Physician: Ray Jameson signed on 11/09/2016 04:57 PM Ordering Physician: Vonnie Milligan Performed By: Martin Botello, CS
--- NOTE | 2016-11-09 17:58 | HOSPPROG ---
Hospitalist Progress Note Assessment/Plan: CRITICAL CARE NOTE GREATER THAN 80 MINUTES OF CRITICAL CARE BEDSIDE TIME PROVIDED DURING 3 VISITS WITH THE PATIENT TODAY I was asked by remission nurse practitioner to assist in the care of this patient who is having acute hypotensive episode in the setting of shortness of breath and hypoxemia. The patient was admitted a couple days ago with an admitting diagnosis of pneumonia and started on antibiotics. However it was felt the previously today that the patient but rather appeared to be having congestive heart failure with edema and with a large cardiac silhouette on chest x-ray no fever and normal white blood cell count. She was given a dose of Lasix this morning. At the time of the stat team consult today the patient had blood pressure of 84/ 50 and blood pressure is actually got lower that she was placed in Trendelenburg by the time I arrived in the room. She was still hypotensive in Trendelenburg. The patient was complaining of ongoing shortness of breath without chest pain or palpitations, without nausea or diaphoresis although she had been noted by staff to be diaphoretic. She did complain of some epigastric discomfort which has been bothering her lately and this is not a new symptom today. There were no fevers and the patient did not have tachycardia but had a regular pulse of 80. my review of the chart shows that the patient has had no fever or white blood cell count elevations during her visit here. My initial examination showed her to have pale slightly diaphoretic skin which was cool, slightly decreased capillary refill in the fingers and toes, normal mentation, labored respirations, jugular venous distension, barely audible breath sounds with no audible abnormalities of the breath sounds, regular pulse at approximately 80, and mild epigastric tenderness without rebound or mass. Bowel sounds are present. There is no edema in the legs. An EKG was done as I examined the patient and this is showing pulse of 80 with what appears to be a high junctional rhythm or accelerated junctional rhythm as there are some retrograde PEs and a new left bundle branch block configuration. The ST segments her notably abnormal related to her conduction abnormality is not really possible to determine if there is any ischemic ST changes. These are new changes from her admission EKG which shows a paced rhythm and narrow QRS complexes. Dr. Bermeo arrived an echocardiogram tacks arrived and on a study at the bedside we see evidence of a very large pericardial effusion with collapse of right atrium and right ventricle along with a significant pleural effusion. I gave the patient a bolus of approximately 400 mL of normal saline and this in the Trendelenburg did bring her back to normal blood pressures. She is able to get back to normal positioning and her blood pressure remained stable. She was feeling somewhat better with this. However still was short of breath with labored respirations on 15 L mask oxygen. With a diagnosis of pericardial tamponade she was taken directly to the cardiac catheter lab and we ordered FFP for transfusion as she has anticoagulation with Xarelto for her atrial fibrillation. In the laborer carpentry dock she had 750 mg of somewhat bloody pericardial fluid removed and a drain catheter is left in place. She is now transferred to the intensive care unit where she has stable blood pressure and decreased dyspnea although she still fairly hypoxemic. Again there is no angina at this time. We were unable to get good stable peripheral IV access so I ordered a PICC catheter. She has had a CT scan of the chest and I reviewed the images from the study. She has bilateral very large pleural effusions still some pericardial fluid or thickening, some atelectasis but I do not see anything that I could call pneumonia. She is now more stable with good blood pressure and pulse, less sob but still feels wheezy. Her troponins are normal. Her procalcitonin is 0.18, but again with no fever and normal wbc's and no definite pneumonia on CT scan I have my doubts about whether this really represents bacterial pneumonia. However for the time being I will not change her antibiotics with abnormal procalcitonin. I have reviewed this patient in detail with doctors Evangelist Nguyen and with Zofia Arce nurse practitioner Objective: Vital Signs Temp Pulse Resp BP Pulse Ox 36.7 C 80 22 H 112/52 L 98 11/09/16 13:27 11/09/16 17:50 11/09/16 17:00 11/09/16 17:50 11/09/16 17:00 Microbiology 11/09/16 13:00 Gram Stain - Final Pericardial Fluid - Aspirate Laboratory Results 11/09/16 11:40 11/09/16 11:40 11/08/16 11/09/16 11/10/16 06:59 06:59 06:59 Intake Total 1860 1250 Output Total 750 750 150 Balance 1110 500 -150 PT REJ 11/09/16 11:40 INR REJ 11/09/16 11:40 ICD10 Worksheet Patient Problems: Problems Problem Status Onset Chronic Disease Mgmt/Transitional Care Acute Hypoxia Acute Malaise Acute Atrial fibrillation Acute Atrial fibrillation with RVR Acute Chest discomfort Acute Chest pain Acute Dizziness Acute Elevated troponin Acute
[2016-11-09] MEDS ORDERED: NS 1,000 ML IV SCH (20:00)
[2016-11-09] MEDS: IBUPROFEN 600 MG TAB PO PRN (20:31)
[2016-11-09] MEDS ORDERED: diphenhydrAMINE 50 MG CAP PO SCH (21:00)
--- NOTE | 2016-11-09 22:32 | GCON ---
[f rep st] CONSULTATION PULMONARY CRITICAL CARE CONSULTATION DATE OF CONSULTATION: 11/09/2016 REASON FOR CONSULTATION: Dyspnea, pericardial and pleural effusions. HISTORY: The patient is a pleasant 81-year-old who was admitted to the intensive care unit followin g large volume pericardiocentesis earlier today. She has a history of heart disease, with sick sinu s syndrome and a pacemaker, previous myocardial infarction, and underlying atrial fibrillation. She also has a history of hypothyroidism. She was admitted on the 4th, 3 days ago, with cough, fever, and shortness of breath. Initial chest x-ray showed a relatively large heart, and a retrocardiac de nsity consistent with possible pneumonia. She was placed on azithromycin and ceftriaxone. She was negative for flu, and negative for Legionella and pneumococcus. She, however, did not improve. A c ardiac echo was done, which showed a rrftkphu-wm-zjlvr-sized pericardial effusion, as well as a left pleural effusion. She was seen by Cardiology, and taken for pericardiocentesis. Approximately 750 cc of bloody fluid was drained, with improvement in right ventricular and right atrial function. A drain catheter was left in place. She was transferred to the intensive care unit. She remains sub jectively short of breath, and complains of some wheezing, new for her. She is on a 10-liter OxyMas k, with oxygen saturations of 98% to 100%. She remains mildly hypotensive, with a systolic blood pr essure of approximately 100. She states that she is feeling better after the pericardiocentesis. S he has remained afebrile since admission. The pericardial fluid is primarily bloody, with a high re d blood cell count. There are approximately 9000 white cells, approximately 50% lymphocytes, and 40 % neutrophils. CT scan of the chest has just been done. There are [id number] bilateral pleu ral effusions, right greater than left, with associated compressive atelectasis. The heart is enlar ged. There is no evidence of significant pneumonia. She did take Xarelto yesterday. She has recei jayna fresh frozen plasma. She has no obvious bleeding at this point in time. PAST MEDICAL HISTORY: Remarkable for Prinzmetal's angina, with myocardial infarction, atrial fibril lation, sick sinus syndrome, a pacer, and systemic hypertension. She is status post bilateral knee surgeries. SOCIAL HISTORY: The patient is . She is a never smoker. Significant alcohol is denied. FAMILY HISTORY: Noncontributory. REVIEW OF SYSTEMS: Negative for lung disease, thromboembolic disease, or other significant problems . Please note that previous echocardiogram from a recent admission did not show pericardial or pleu ral effusions. PHYSICAL EXAMINATION: GENERAL: Reveals a woman who is lying in bed. She is in no acute distress, but appears mildly uncomfortable. She complains of shortness of breath, and her chest still feeling tight. VITAL SIGNS: Blood pressure is approximately 105/50, heart rate 80, with intermittent pace d beats. Respiratory rate is 24. She is on a 10-liter OxyMask, with saturations between 98% and 10 0%. She is afebrile. HEENT AND NECK: Unremarkable for lymphadenopathy or thyromegaly. There is n o obvious jugular venous distention currently. Mucous membranes are somewhat dry. CHEST: Reveals decreased breath sounds bilaterally, with some dullness at the bases, and some rales above. There i s no rub. There are a few scattered end-expiratory wheezes. There are no rhonchi. HEART: Regular . There is a systolic murmur. There is no obvious pericardial rub currently. A drain is in place. ABDOMEN: Soft, nontender, slightly overweight. Bowel sounds are diminished, but present. EXTREM ITIES: Remarkable for trace plus edema. NEUROLOGIC: Examination is intact. LABORATORY DATA: CT scan of the chest and cardiac echo are as outlined above. White blood cell count is 12,000, hematocrit 31.7, platelets are normal. PT and PTT are pending. V enous lactate is normal at 1.1. Sodium is 124, down from 131 on admission, potassium 5.0, BUN 30, c reatinine of 1.0, glucoses are elevated between 115 and 250 today. Troponin is negative. BNP is 12 20. Gram stain from her pericardial effusion shows no organisms. Cultures are pending. ASSESSMENT: Pericardial and pleural effusions. Pericardiocentesis has been performed, as her cardi ac status was compromised. Blood pressures are better, but remain borderline. She does have modera te bilateral pleural effusions. These can be tapped; however, I would like her systemic anticoagula tion to return more towards normal prior to doing this. This probably will improve her sensation of shortness of breath. The etiology for her pericardial and pleural effusions is unclear. Viral pro cesses are certainly possible. A respiratory viral panel needs to be obtained. Pneumonia seems les s likely at this point in time. However, antibiotics will be continued. Congestive heart failure m ay be playing a role. She did receive Lasix earlier with good diuresis. Repeating this again may b e of benefit. PLAN AND RECOMMENDATIONS: The patient will be kept in the intensive care unit. Oxygen and supporti ve care will be maintained. Pericardial drain will be left in place. Lasix 20 mg will be repeated. Cardiology will continue to follow the patient. Thoracentesis on the right side will be performed in the a.m., and sent for appropriate samples. Left-sided thoracentesis can be considered after th is. Anticoagulation will be held. Further plans and recommendations will be made based on her progress over the next 12 to 24 hours. /[id number]/MODL
[2016-11-10] MEDS: guaiFENesin/CODEINE PHOS 10 ML UDCUP PO PRN (00:22)
[2016-11-10 04:32] LABS: ALANINE AMINOTRANSFERASE 84 IU/L (9-52); ALBUMIN 2.4 g/dL (3.5-5.0); ALKALINE PHOSPHATASE 90 IU/L (38-126); ANION GAP 7 mEq/L (8-16); ASPARTATE AMINOTRANSFERASE 26 IU/L (14-46); BILIRUBIN,TOTAL 0.5 mg/dL (0.1-1.4); CALCIUM 8.2 mg/dL (8.5-10.4); CARBON DIOXIDE 23 mEq/l (22-31); CHLORIDE 100 mEq/L (97-110); CREATININE 0.9 mg/dL (0.6-1.0); GLOMERULAR FILTRATION RATE > 60; GLUCOSE 97 mg/dL (70-100); POTASSIUM 3.8 mEq/L (3.5-5.2); SODIUM 130 mEq/L (134-144); TOTAL PROTEIN 4.7 g/dL (6.3-8.2)
[2016-11-10 04:39] LABS: % IMMATURE GRANULYOCYTES 0.3 % (0.0-1.1); ABSOLUTE IMMATURE GRANULOCYTES 0.03 10^3/uL (0.00-0.10); ADD DIFF? NO; ADD MORPH? NO; ADD SCAN? NO; ATYPICAL LYMPHOCYTE FLAG 10 (0-99); FRAGMENT RBC FLAG 0 (0-99); HEMOGLOBIN 10.2 g/dL (12.6-16.3); LEFT SHIFT FLG 0 (0-99); LIPEMIA HEMOLYSIS FLAG 90 (0-99); MEAN CELL HEMOGLOBIN 30.8 pg (27.9-34.1); MEAN CELL VOLUME 90.6 fL (81.5-99.8); MEAN PLATELET VOLUME 9.4 fL (8.7-11.7); PLATELET CLUMPS FLAG 10 (0-99); PLATELET COUNT 392 10^3/uL (150-400); RED BLOOD CELL COUNT 3.31 10^6/uL (4.18-5.33)
[2016-11-10 04:50] LABS: INR 1.63 (0.83-1.16); PROTIME(PATIENT) 19.4 SEC (12.0-15.0)
[2016-11-10 04:51] LABS: APTT 41.7 SEC (23.0-38.0)
[2016-11-10] MEDS: LEVOTHYROXINE 50 MCG TAB PO SCH (05:09)
[2016-11-10] MEDS: HYDROCHLOROTHIAZIDE 25 MG TAB PO SCH (08:23)
[2016-11-10] MEDS: DILTIAZEM XR 240 MG CAP PO SCH ×2 (08:23→19:46)
[2016-11-10] MEDS: CARVEDILOL 3.125 MG TAB PO SCH ×2 (08:23→17:47)
[2016-11-10] MEDS: MULTIVITAMINS 1 EACH TAB PO SCH (08:24)
[2016-11-10] MEDS: guaiFENesin 600 MG TAB.ER PO SCH ×2 (08:24→19:47)
--- NOTE | 2016-11-10 08:54 | HOSPPROG ---
Hospitalist Progress Note Assessment/Plan: -pericarditis/pericardial effusion with acute pericardial tamponade with hypotension -large bilateral pleural effusions -acute hypoxemic respiratory failure -Rapid Atrial Fibrillation -Chronic hypoxemic respiratory failure -Obstructive sleep apnea The cause of this is uncertain, however she was here with a plerutic chest pain 10 days ago with negative evaluation and was presumed then to have a viral pleuritis. She had no effusions then. She has no findings outside the pleura/ pericardium to suggest autoimmune disease at this time though this is still possible. She appears to be stable overnight -thoracentesis today to get better relief of dyspnea -check resp viral panel -will need repeat echo to follow her effusion volume, ? timing still some sob no chest pain no fever sxs no nausea Objective: Vital Signs Temp Pulse Resp BP Pulse Ox 36.7 C 90 31 H 118/79 94 11/10/16 08:00 11/10/16 08:23 11/10/16 08:00 11/10/16 08:23 11/10/16 08:00 Microbiology 11/09/16 13:00 Gram Stain - Final Pericardial Fluid - Aspirate Laboratory Results 11/10/16 04:05 11/10/16 04:05 11/09/16 11/10/16 11/11/16 06:59 06:59 06:59 Intake Total 1250 770 Output Total 750 1185 130 Balance 500 -415 -130 PT 19.4 SEC (12.0-15.0) H 11/10/16 04:05 INR 1.63 (0.83-1.16) H 11/10/16 04:05 ICD10 Worksheet Patient Problems: Problems Problem Status Onset Chronic Disease [facility]/Transitional Care Acute Hypoxia Acute Malaise Acute Atrial fibrillation Acute Atrial fibrillation with RVR Acute Chest discomfort Acute Chest pain Acute Dizziness Acute Elevated troponin Acute
[2016-11-10] MEDS ORDERED: Herbals/Supplements -Info Only PO SCH (09:00)
[2016-11-10] MEDS: AZITHROMYCIN IV 500 MG in D5W 250 ML IV SCH (09:13)
[2016-11-10] MEDS: BENZONATATE 100 MG CAP PO PRN ×2 (09:48→19:47)
[2016-11-10] MEDS ORDERED: LORazepam 1 MG TAB PO PRN (11:11)
[2016-11-10] MEDS ORDERED: BUPIVACAINE 0.5% 30 ML SDV IPL ONE (11:45)
[2016-11-10] MEDS ORDERED: ALBUMIN 5% 500 ML BOTTLE IV ONE (11:59)
--- NOTE | 2016-11-10 12:35 | PDINTPN ---
Invoicing Machine Operator Progress Note Assessment/Plan: Assessment: Pleural/pericardial effusions: Query etiology. Status post pericardiocentesis yesterday. Will do left thoracentesis after ultrasound marking today, right tomorrow. Doubt bacterial pneumonia/empyema/infected pericardium. Possibly viral. I will send a viral respiratory panel today. Cardiac: Stable. Blood pressure is on the low side at times. Not requiring pressors. Paced. Cardiology following. Hyponatremia: Improved on fluid restriction and low-dose normal saline. Possible pneumonia: Doubt. On appropriate antibiotics for community-acquired organisms. Will continue for now. DVT prophylaxis: None currently, but can start prophylactic treatment. Was on full-dose anticoagulation secondary to underlying atrial fibrillation. We will need to discuss the timing of re-initiation. Plan: Continue present care in the intensive care unit. For thoracentesis today on left, right tomorrow. Follow cardiac status and blood pressure. Follow-up echo if needed, per Cardiology. Intravenous fluids: Crystalloid or colloid as indicated for blood pressure. Respiratory viral panel requested. Follow laboratory and x-ray. Will stop hydrochlorothiazide in light of her hyponatremia. Will continue Lasix: 20 daily. Continue fluid restriction, low rate normal saline 35 minutes of critical care time spent directly with the patient, not including thoracentesis. Issues discussed with the patient, her family, hospitalist, nursing, and the ICU multi disciplinary team. Subjective: Doing okay. Remains short of breath at rest in bed. Denies chest pain. On decreasing oxygen. Objective: Vital Signs Temp Pulse Resp BP Pulse Ox 36.9 C 80 23 H 88/51 L 97 11/10/16 12:07 11/10/16 12:13 11/10/16 12:13 11/10/16 12:13 11/10/16 12:13 Microbiology 11/09/16 13:00 Gram Stain - Final Pericardial Fluid - Aspirate Laboratory Results 11/10/16 04:05 11/10/16 04:05 11/09/16 11/10/16 11/11/16 05:59 05:59 05:59 Intake Total 1250 770 400 Output Total 750 1185 1205.5 Balance 500 -415 -805.5 PT 19.4 SEC (12.0-15.0) H 11/10/16 04:05 INR 1.63 (0.83-1.16) H 11/10/16 04:05 Laboratory Tests 11/10/16 11/10/16 04:05 04:05 PT 19.4 H INR 1.63 H APTT 41.7 H Calcium 8.2 L Total Bilirubin 0.5 AST 26 ALT 84 H Albumin 2.4 L CXR: Consistent with bilateral pleural effusions and atelectasis. Cannot rule out infiltrate retrocardiac Physical Exam - Physical Exam General Appearance: alert, mild distress, obese EENT: PERRL/EOMI, other (Nasal cannula at 6 L) Neck: normal inspection (No obvious JVD but large neck,) Respiratory: lungs clear (Anteriorly), decreased breath sounds (At both bases with dullness. ), rales (Few, above areas of dullness), wheezing (End exhalation on the left) Cardiac/Chest: regular rate, rhythm (Paced), systolic murmur, No gallop, No friction rub Abdomen: normal bowel sounds, non-tender, soft (Overweight) Pelvic Exam: other (Dale catheter in place, good urine output) Skin: warm/dry, pallor Extremities: pedal edema (Trace +) Neuro/Psych: no motor/sensory deficits, No cognition abnormalities ICD10 Worksheet Patient Problems: Problems Problem Status Onset Chronic Disease Mgmt/Transitional Care Acute Hypoxia Acute Malaise Acute Atrial fibrillation Acute Atrial fibrillation with RVR Acute Chest discomfort Acute Chest pain Acute Dizziness Acute Elevated troponin Acute
--- NOTE | 2016-11-10 12:55 | GPN ---
[f rep st] PROCEDURE NOTE DATE OF PROCEDURE: 11/10/2016 PROCEDURE: Thoracentesis. INDICATION: Large bilateral pleural effusions, associated with shortness of breath. DESCRIPTION OF PROCEDURE: The procedure was done in the intensive care unit in the patient's room. An appropriate time-out was performed. Informed consent was obtained from the patient. 1% lidocai ne was used for local anesthesia via interspaces 8 and 9 posterolaterally. Following this, the thor acentesis catheter was advanced into the patient's pleural effusion. Approximately 975 mL of clear yellow, slightly richard fluid was removed without difficulty. The patient had minimal discomfort thr oughout the procedure. Her blood pressure was somewhat low at the end of the procedure. The patien t was placed in the recumbent position and her blood pressure recycled. Once lying down, it was a s ystolic pressure of approximately 90. Her pressure while sitting up was unclear, but she was not li ghtheaded and remained conversant throughout the procedure. Oxygen saturations and other vital sign s remained stable. Appropriate studies were requested, including chemistries, cell count, different ial, Gram stain and culture, and cytologies. IMPRESSION: Successful large-volume, left-sided thoracentesis. /[id number]/MODL
[2016-11-10 13:34] LABS: LD, PLEURAL FLUID 409 IU/L
--- NOTE | 2016-11-10 14:30 | PDCARPN ---
Cardiology Progress Note Chief Complaint: Ongoing complaints of moderate shortness of breath. Patient admits to "feeling better" in comparison to yesterday. Assessment/Plan: Assessment: 11-10-16 Patient reportedly doing better today, but continues to have complaints of shortness of breath - atypical for the patient. Yesterday, with haemodynamic compromise being appreciate, the patient was taken urgently to the cardiac flower shop laborer/designer for pericardiocentesis. Approximately 750 cc of bloody, serosanguinous fluid was removed, and improvement in haemodynamics was noted. No complaints of chest pains or pressure today, but as stated above, ongoing complaints of shortness of breath. Tachypnea continues to be noted with supplemental oxygen at 6 liters/min (and sats of 97%). Family was at bedside today. Plans for pleural tap later today. Repeat echocardiogram today (limited) without appreciable reaccumulation of fluid noted. 11-09-16 Patient is an 81 y/o female with history of HTN, MALINI with CPAP use, pAF (on Xarelto with [id number] score of 5), and SSS s/p PPM, who presents back to [facility] with complaints of cough and shortness of breath, about one week post discharge from the hospital for Community Acquired Pneumonia (with two day admission). Patient was admitted about three days prior to today, and has "felt poorly" during this admission. When the patient was seen this morning by cardiology, however, there was an acute change in the patient's status - lethary and diaphoresis. No complaints of chest pains have been noted. No PND or orthopnea , but mental status was clearly altered. Blood pressure was acutely noted to be hypotensive (80's/50's). Mentition was grossly intact, but slowed. and family were present in the room. Outpatient testing with [facility] ([facility] from 01-22-16) was reviewed, as well as the last several outpatient notes from my partner (Dr. Nicanor Silverio). Echocardiogram from 10-28-16 with normal left ventricular systolic ejection fraction and NO pericardial effusion. Limited echocardiogram today with moderate to large pericardial effusion with tamponade physiology. Large left sided pleural effusion was also noted. Plan: (1) Pending assessment of fluid from pericardium (2) Pending thoracentesis today (3) Would continue to hold NOAC therapy given this pending need for tap (4) Pacer interrogation today (when possible, and not 'urgent') to ensure that device functionality is normal (5) Ongoing blood and fluid cultures pending Subjective: Continued shortness of breath Reviewed/Discussed With: family, hospitalist, multidisciplinary team Objective: Vital Signs (8 Hrs) Temp Pulse Resp BP Pulse Ox 11/10/16 14:00 81 27 H 101/47 L 97 11/10/16 13:00 80 25 H 95/49 L 99 11/10/16 12:36 80 21 H 98/55 L 98 11/10/16 12:13 80 23 H 88/51 L 97 11/10/16 12:07 36.9 C 80 25 H 93/54 L 96 11/10/16 12:03 80 27 H 46/24 L 99 11/10/16 11:53 80 17 82/39 L 94 11/10/16 11:46 80 27 H 85/42 L 95 11/10/16 11:00 80 32 H 111/57 L 96 11/10/16 10:00 80 30 H 101/54 L 96 11/10/16 09:00 80 29 H 97/52 L 96 11/10/16 08:23 80 118/79 11/10/16 08:00 36.7 C 84 31 H 118/79 94 11/10/16 07:00 81 28 H 117/55 L 96 Intake/Output (24 Hrs) 11/09/16 11/10/16 11/11/16 05:59 05:59 05:59 Intake Total 1250 770 400 Output Total 750 1185 1206.5 Balance 500 -415 -806.5 Intake: Oral (ml) 1250 500 400 IV Infused (ml) 270 Ns 1,000 ml @ 50 mls/hr 270 IV CONT ELAINA Rx#: [id number] Output: Urine (ml) 750 1150 225 Bedpan 100 Bedside Commode 1050 225 Toilet 750 Thoracentesis 975 Pericardial Drain Output 35 6.5 (ml) #1 Pericardial 35 6.5 Other: Number of Voids Bedpan 1 Bedside Commode 1 Incontinence 1 Toilet 3 Number of Stools Bedside Commode 0 Result Diagrams: 11/10/16 04:05 11/10/16 04:05 Cardiac Labs: Cardiac Lab Results (72 Hrs) 11/09/16 11/09/16 11:40 04:50 CK-MB (CK-2) Fraction 0.94 Troponin I < 0.012 < 0.012 Telemetry: paced rhythm (A sense and V pace) Echocardiogram: resolution of the pericardial fluid noted yesterday - Physical Exam Constitutional: WDWN Eyes: PERRL Ears, Nose, Mouth, Throat: moist mucous membranes Cardiovascular: regular rate and rhythm, systolic murmur, No jugular vein distention Peripheral Pulses: 2+: dorsalis-pedis (R), dorsalis-pedis (L) Respiratory: reduced air movement, expiratory wheeze Gastrointestinal: normoactive bowel sounds Skin: no edema Musculoskeletal: no muscular tenderness Neurologic: AAOx3, CN II-XII grossly intact Psychiatric: cooperative, interactive, following commands ICD10 Worksheet Patient Problems: Problems Problem Status Onset Chronic Disease Mgmt/Transitional Care Acute Hypoxia Acute Malaise Acute Atrial fibrillation Acute Atrial fibrillation with RVR Acute Chest discomfort Acute Chest pain Acute Dizziness Acute Elevated troponin Acute
[2016-11-10] MEDS ORDERED: ALBUMIN 5% 500 ML IV ONE (15:32)
--- NOTE | 2016-11-10 16:21 | ECHO ---
[id number] + + [address] : : [place] [address] : : [phone] + + Adult Echocardiographic Report + -------+ :Name: FELIX HERRERA Date: 11/10/2016 01:30 PM : : Hospital Admission Number: [id number] Locati on: 252: :: 1935 Gender: Female Height: 65 in : :Age: 81 yrs Race: WH Weight: 175 lb : :Reason For Study: Eval for pericaridial fluid : : BSA: 1.9 meter s2 : + -------+ Doppler Measurements \T\ Calculations TR max hermelindo: 275.5 cm/sec TR max P.4 mmHg RAP systole: 10.0 mmHg RVSP(TR): 40.4 mmHg Pericardium/Pleural There is no pericardial effusion. Conclusion Limited 2-D echo. There is no pericardial effusion in this study In comparison to prior echo with pericardial effusion and tamponade physiology, there has been normalization of the RV/RA without collapse noted in this limited echo Final Reading Physician: Ray Jameson signed on 11/10/2016 04:20 PM Ordering Physician: Evangelist Bermeo Performed By: Jennifer Rendon, [facility]
[2016-11-10] MEDS ORDERED: DOCUSATE SODIUM 100 MG CAP PO PRN (20:01)
[2016-11-11 04:15] LABS: % IMMATURE GRANULYOCYTES 0.4 % (0.0-1.1); ABSOLUTE IMMATURE GRANULOCYTES 0.04 10^3/uL (0.00-0.10); ADD DIFF? NO; ADD MORPH? NO; ADD SCAN? NO; ATYPICAL LYMPHOCYTE FLAG 10 (0-99); FRAGMENT RBC FLAG 0 (0-99); HEMATOCRIT 28.5 % (38.0-47.0); HEMOGLOBIN 9.5 g/dL (12.6-16.3); LEFT SHIFT FLG 0 (0-99); LIPEMIA HEMOLYSIS FLAG 80 (0-99); MEAN CELL HEMOGLOBIN 30.3 pg (27.9-34.1); MEAN CELL HEMOGLOBIN CONCENTR. 33.3 g/dL (32.4-36.7); MEAN CELL VOLUME 90.8 fL (81.5-99.8); MEAN PLATELET VOLUME 8.8 fL (8.7-11.7); PLATELET CLUMPS FLAG 0 (0-99); PLATELET COUNT 399 10^3/uL (150-400); RED BLOOD CELL COUNT 3.14 10^6/uL (4.18-5.33); RED CELL DISTRIBUTION WIDTH 14.3 % (11.5-15.2)
[2016-11-11 04:25] LABS: INR 1.43 (0.83-1.16); PROTIME(PATIENT) 17.4 SEC (12.0-15.0)
[2016-11-11 04:26] LABS: APTT 36.2 SEC (23.0-38.0)
[2016-11-11 04:58] LABS: ANION GAP 7 mEq/L (8-16); CALCIUM 8.5 mg/dL (8.5-10.4); CARBON DIOXIDE 23 mEq/l (22-31); CHLORIDE 100 mEq/L (97-110); CREATININE 0.8 mg/dL (0.6-1.0); GLOMERULAR FILTRATION RATE > 60; GLUCOSE 84 mg/dL (70-100); POTASSIUM 3.6 mEq/L (3.5-5.2); SODIUM 130 mEq/L (134-144)
[2016-11-11] MEDS: LEVOTHYROXINE 50 MCG TAB PO SCH (05:53)
[2016-11-11] MEDS: CARVEDILOL 3.125 MG TAB PO SCH ×2 (08:28→17:30)
[2016-11-11] MEDS: MULTIVITAMINS 1 EACH TAB PO SCH (08:28)
[2016-11-11] MEDS: guaiFENesin 600 MG TAB.ER PO SCH ×2 (08:28→20:27)
[2016-11-11] MEDS: DILTIAZEM XR 240 MG CAP PO SCH ×2 (08:28→20:26)
[2016-11-11] MEDS: FUROSEMIDE 20 MG TAB PO SCH (08:29)
[2016-11-11] MEDS: AZITHROMYCIN IV 500 MG in D5W 250 ML IV SCH (09:13)
--- NOTE | 2016-11-11 10:04 | PDINTPN ---
Non Clinical Advisor Progress Note Assessment/Plan: Assessment: Pleural/pericardial effusions: Query etiology. Status post pericardiocentesis and left thoracentesis. Pleural fluid borderline exudative but pretty benign overall. Doubt bacterial pneumonia/empyema/infected pericardium. Possibly viral. Viral respiratory panel negative, but other viruses such as Coxsackie and Echo were not tested. Chest x-ray improved. No reason to tapped the right side at this time as fluid looks to have significantly diminished. Cardiac: Stable. Blood pressure is on the low side at times. Not requiring pressors. Paced. Cardiology following. Hyponatremia: Improved on fluid restriction and low-dose normal saline. Possible pneumonia: Doubt. On appropriate antibiotics for community-acquired organisms. Will continue for 7 days total then DC. DVT prophylaxis: On Lovenox. Was on full-dose anticoagulation secondary to underlying atrial fibrillation. We will need to discuss the timing of re- initiation. Plan: Continue care. Can transfer to PCU today. Will follow x-ray and laboratory. 30 minutes of critical care time spent directly with the patient.. Issues discussed with the patient, her family, hospitalist, nursing, and the ICU multi disciplinary team. Subjective: Complains of increased fatigue again today. Some shortness of breath, no chest pain. Objective: Vital Signs Temp Pulse Resp BP Pulse Ox 36.8 C 87 19 120/49 L 98 11/11/16 07:52 11/11/16 08:28 11/11/16 07:52 11/11/16 08:28 11/11/16 07:52 Microbiology 11/10/16 12:00 Gram Stain - Final Pleural Fluid - Aspirate 11/10/16 11:00 Respiratory Panel (PCR) - Final Nasal, Sinus - Swab No Organism Detected 11/09/16 13:00 Gram Stain - Final Pericardial Fluid - Aspirate 11/09/16 13:00 Mycobacterial Smear (ENRRIQUE) - Final Pericardial Fluid - Aspirate Laboratory Results 11/11/16 04:00 11/11/16 04:00 11/10/16 11/11/16 11/12/16 05:59 05:59 05:59 Intake Total 770 3089 Output Total 1185 819147.5 200 Balance -415 -736260.5 -200 PT 17.4 SEC (12.0-15.0) H 11/11/16 04:00 INR 1.43 (0.83-1.16) H 11/11/16 04:00 Microbiology 11/10/16 11:00 Nasal, Sinus - Swab Respiratory Panel (PCR) - Final No Organism Detected Laboratory Tests 11/10/16 11/11/16 11/11/16 12:00 04:00 04:00 PT 17.4 H INR 1.43 H APTT 36.2 Calcium 8.5 Pleural WBC 761 Pleural RBC 680 Pleural Neutrophils 70 Pleural Lymphocytes % 23 Pleural Total Protein 2.7 Pleural LDH 409 Pleural Glucose 121 H CXR: Small amount of pleural effusion remains or has increased since the thoracentesis. Right hemidiaphragm is somewhat high however there is no evidence of a moderate or large effusion at this time. Cardiac silhouette remains large. Physical Exam - Physical Exam General Appearance: alert, no apparent distress EENT: other (Nasal cannula at 3 L, 100%) Neck: normal inspection Respiratory: lungs clear (Anteriorly), decreased breath sounds (At bases, some rales persist), No rhonchi, No wheezing Cardiac/Chest: regular rate, rhythm (Pace) Abdomen: normal bowel sounds, non-tender, soft (Somewhat overweight) Pelvic Exam: other (No Dale catheter) Skin: normal color, warm/dry Extremities: pedal edema (Trace) Neuro/Psych: no motor/sensory deficits, No cognition abnormalities ICD10 Worksheet Patient Problems: Problems Problem Status Onset Chronic Disease Mgmt/Transitional Care Acute Hypoxia Acute Malaise Acute Atrial fibrillation Acute Atrial fibrillation with RVR Acute Chest discomfort Acute Chest pain Acute Dizziness Acute Elevated troponin Acute
--- NOTE | 2016-11-11 11:11 | PDCARPN ---
Cardiology Progress Note Chief Complaint: Patient feeling better overall, but continues to have shortness of breath Assessment/Plan: Assessment: 02-11-17 Patient is doing better today - better post left thoracentesis. No chest pains or pressure. Mild shortness of breath continues to be noted. Plans, per patient, for right thoracentesis today. No events overnight. Patient becomes "fatigued" rapidly. Some use of incentive spirometry. Pacer interrogation yesterday with underlying atrial fibrillation noted. Cultures on body fluid continue - gram stain on pericardial fluid was negative. 11-10-16 Patient reportedly doing better today, but continues to have complaints of shortness of breath - atypical for the patient. Yesterday, with haemodynamic compromise being appreciate, the patient was taken urgently to the cardiac director of cath lab for pericardiocentesis. Approximately 750 cc of bloody, serosanguinous fluid was removed, and improvement in haemodynamics was noted. No complaints of chest pains or pressure today, but as stated above, ongoing complaints of shortness of breath. Tachypnea continues to be noted with supplemental oxygen at 6 liters/min (and sats of 97%). Family was at bedside today. Plans for pleural tap later today. Repeat echocardiogram today (limited) without appreciable reaccumulation of fluid noted. 11-09-16 Patient is an 81 y/o female with history of HTN, MALINI with CPAP use, pAF (on Xarelto with [id number] score of 5), and SSS s/p PPM, who presents back to [facility] with complaints of cough and shortness of breath, about one week post discharge from the hospital for Community Acquired Pneumonia (with two day admission). Patient was admitted about three days prior to today, and has "felt poorly" during this admission. When the patient was seen this morning by cardiology, however, there was an acute change in the patient's status - lethary and diaphoresis. No complaints of chest pains have been noted. No PND or orthopnea , but mental status was clearly altered. Blood pressure was acutely noted to be hypotensive (80's/50's). Mentition was grossly intact, but slowed. and family were present in the room. Outpatient testing with [facility] (MPI from 01-22-16) was reviewed, as well as the last several outpatient notes from my partner (Dr. Nicanor Silverio). Echocardiogram from 10-28-16 with normal left ventricular systolic ejection fraction and NO pericardial effusion. Limited echocardiogram today with moderate to large pericardial effusion with tamponade physiology. Large left sided pleural effusion was also noted. Plan: (1) Right sided thoracentesis planned for today (2) Resumption of anticoagulation therapy given atrial fibrillation history (3) Will continue to follow this patient over hospital stay Subjective: Shortness of breath continues, albeit improved Objective: Vital Signs (8 Hrs) Temp Pulse Resp BP Pulse Ox 11/11/16 08:28 87 120/49 L 11/11/16 07:52 36.8 C 101 H 19 101/47 L 98 11/11/16 07:00 90 28 H 112/58 L 96 11/11/16 06:00 81 19 86/47 L 95 11/11/16 05:00 81 21 H 94/47 L 97 11/11/16 04:00 83 22 H 105/45 L 97 11/11/16 03:15 37.1 C Intake/Output (24 Hrs) 11/10/16 11/11/16 11/12/16 05:59 05:59 05:59 Intake Total 770 3089 Output Total 1185 080237.5 200 Balance -415 -704649.5 -200 Intake: Oral (ml) 500 1250 IV Intake (ml) 1250 IV Infused (ml) 270 589 Ns 1,000 ml @ 50 mls/hr 270 589 IV CONT ELAINA Rx#: [id number] Output: Urine (ml) 1150 697577 200 Bedpan 100 Bedside Commode 1050 [id number] 200 Thoracentesis 975 Pericardial Drain Output 35 6.5 (ml) #1 Pericardial 35 6.5 Other: Number of Voids Bedpan 1 Bedside Commode 1 Incontinence 1 Number of Stools Bedside Commode 0 Result Diagrams: 11/11/16 04:00 11/11/16 04:00 Cardiac Labs: Cardiac Lab Results (72 Hrs) 11/09/16 11/09/16 11:40 04:50 CK-MB (CK-2) Fraction 0.94 Troponin I < 0.012 < 0.012 Telemetry: ventricular pacing - Physical Exam Constitutional: healthy appearing, no apparent distress Eyes: PERRL, EOMI Ears, Nose, Mouth, Throat: moist mucous membranes Cardiovascular: regular rate and rhythm, systolic murmur Peripheral Pulses: 2+: dorsalis-pedis (R), dorsalis-pedis (L) Respiratory: reduced air movement, dullness to percussion (moreso on the right) Gastrointestinal: normoactive bowel sounds Skin: no edema Musculoskeletal: no muscular tenderness Neurologic: AAOx3, CN II-XII grossly intact Psychiatric: cooperative, interactive, following commands ICD10 Worksheet Patient Problems: Problems Problem Status Onset Chronic Disease Mgmt/Transitional Care Acute Hypoxia Acute Malaise Acute Atrial fibrillation Acute Atrial fibrillation with RVR Acute Chest discomfort Acute Chest pain Acute Dizziness Acute Elevated troponin Acute
--- NOTE | 2016-11-11 11:21 | HOSPPROG ---
Hospitalist Progress Note Assessment/Plan: 81 yo female with recent hospitalization for chest pain presumed to be a viral pleurisy re-admitted with fevers and radiologic e/o CAP, then developed acute pericardial and pleural effusions requiring pericardiocentesis and thoracentesis. Condition now improving. Acute hypoxemic respiratory failure - secondary to possible CAP and b/l pleural effusions s/p thoracentesis 11/10. Effusions presumed viral in etiology. BCx's and pleural fluid Cxs ngtd. Respiratory viral panel neg. Pneumococcal and legionella Ags neg. O2 requirement 10 --> 3 LPM. Repeat CXR today reviewed and personally interpreted, no significant change from yesterday. Discussed case with pulm. -day 11/09 ceftriaxone and azithro, d/c tomorrow -send FABY, ESR, RF and anti-CCP Ab for further w/u of effusions -cont low dose lasix -monitor for reaccumulation of fluid -wean O2 as able Pericarditis with pericardial effusion causing acute tamponade with hypotension requiring pericardiocentesis - repeat echo 11/10 showed no significant reaccumulation of effusion. Cards following. -further effusion w/u as above Hyponatremia - Na 124 --> 130 with NS, Lasix. Will add fluid restriction. A fib / SSS with PPM - rate controlled with Coreg, Dilt. CVA prevention with Xarelto (held with recent procedures, will resume). MALINI - cont CPAP Full code DVT PPLX - Xarelto Dispo - transfer to PCU, cont inpt Subjective: Pt feels better today. NO fevers. Still coughing, but non- productive. No CP, mild SOB mostly with activity. Denies orthopnea. Eating and drinking well. Objective: Vital Signs Temp Pulse Resp BP Pulse Ox 36.8 C 87 19 120/49 L 98 11/11/16 07:52 11/11/16 08:28 11/11/16 07:52 11/11/16 08:28 11/11/16 07:52 Microbiology 11/10/16 12:00 Gram Stain - Final Pleural Fluid - Aspirate 11/10/16 11:00 Respiratory Panel (PCR) - Final Nasal, Sinus - Swab No Organism Detected 11/09/16 13:00 Gram Stain - Final Pericardial Fluid - Aspirate 11/09/16 13:00 Mycobacterial Smear (ENRRIQUE) - Final Pericardial Fluid - Aspirate Laboratory Results 11/11/16 04:00 11/11/16 04:00 11/10/16 11/11/16 11/12/16 05:59 05:59 05:59 Intake Total 770 3089 Output Total 1185 830664.5 200 Balance -415 -245033.5 -200 PT 17.4 SEC (12.0-15.0) H 11/11/16 04:00 INR 1.43 (0.83-1.16) H 11/11/16 04:00 - Physical Exam Constitutional: no apparent distress Eyes: PERRL Ears, Nose, Mouth, Throat: moist mucous membranes Cardiovascular: regular rate and rhythym, no murmur, rub, or gallop Respiratory: no respiratory distress, other (diminished on right base, o/w CTAB) Skin: warm Musculoskeletal: full muscle strength, other (tr b/l LE edema) Neurologic: AAOx3 Psychiatric: interacting appropriately ICD10 Worksheet Patient Problems: Problems Problem Status Onset Chronic Disease Mgmt/Transitional Care Acute Dizziness Acute Chest discomfort Acute Atrial fibrillation with RVR Acute Chest pain Acute Atrial fibrillation Acute Elevated troponin Acute Hypoxia Acute Malaise Acute
[2016-11-11] MEDS: RIVAROXABAN 15 MG TAB PO SCH (17:30)
[2016-11-11] MEDS: IBUPROFEN 600 MG TAB PO PRN (23:57)
[2016-11-12] MEDS: LEVOTHYROXINE 50 MCG TAB PO SCH (06:23)
[2016-11-12 06:57] LABS: ANION GAP 5 mEq/L (8-16); CALCIUM 8.3 mg/dL (8.5-10.4); CARBON DIOXIDE 25 mEq/l (22-31); CHLORIDE 99 mEq/L (97-110); CREATININE 0.7 mg/dL (0.6-1.0); GLOMERULAR FILTRATION RATE > 60; GLUCOSE 78 mg/dL (70-100); POTASSIUM 3.6 mEq/L (3.5-5.2); SODIUM 129 mEq/L (134-144)
[2016-11-12] MEDS: guaiFENesin 600 MG TAB.ER PO SCH ×2 (09:25→20:44)
[2016-11-12] MEDS: DILTIAZEM XR 240 MG CAP PO SCH ×2 (09:25→20:44)
[2016-11-12] MEDS: CARVEDILOL 3.125 MG TAB PO SCH ×2 (09:25→18:10)
[2016-11-12] MEDS: MULTIVITAMINS 1 EACH TAB PO SCH (09:25)
[2016-11-12] MEDS: FUROSEMIDE 20 MG TAB PO SCH (09:25)
[2016-11-12] MEDS: AZITHROMYCIN IV 500 MG in D5W 250 ML IV SCH (09:26)
--- NOTE | 2016-11-12 13:01 | CPEKG ---
Heart Rate: 84 RR Interval: 714 P-R Interval: 152 QRSD Interval: 140 QT Interval: 404 QTC Interval: 478 P [place]: 0 QRS [place]: 107 T Wave [place]: -70 EKG Severity - ABNORMAL ECG - EKG Impression: VENTRICULAR-PACED COMPLEXES EKG Impression: NONSPECIFIC INTRAVENTRICULAR CONDUCTION DELAY EKG Impression: MINIMAL ST DEPRESSION, DIFFUSE LEADS Electronically Signed By: Niko Weiner 12-Nov-2016 15:26:14
--- NOTE | 2016-11-12 17:37 | SOAPPROG ---
SOAP Progress Note Assessment/Plan: Assessment: Pleural/pericardial effusions: Query etiology. Status post pericardiocentesis and left thoracentesis. Pleural fluid borderline exudative but pretty benign overall. No evidence of a bacterial infection. Possibly viral. Viral respiratory panel negative, but other viruses such as Coxsackie and Echo were not tested. Chest x-ray improved. Cardiac: Stable. Paced. Cardiology following. Hyponatremia: Sodium stable 129. On fluid restriction and salt tabs Possible pneumonia: Doubt clinically. On appropriate antibiotics for community -acquired organisms. Will continue for 7 days total then DC. DVT prophylaxis: Back on full-dose anticoagulation Plan: Continue care. Will follow x-ray intermittently, laboratory. DC antibiotics after 7 days, tomorrow. Wean oxygen as tolerated. Increase ambulation. Continue IS. If cardiac status is stable likely can discharge Monday or Monday? Subjective: Feels much better today. Denies significant shortness of breath. Still with some anterior upper chest tightness or discomfort. Objective: Vital Signs Temp Pulse Resp BP Pulse Ox 36.6 C 83 19 108/60 97 11/12/16 16:00 11/12/16 16:00 11/12/16 16:00 11/12/16 16:00 11/12/16 16:00 Microbiology 11/09/16 13:00 Gram Stain - Final Pericardial Fluid - Aspirate 11/10/16 12:00 Gram Stain - Final Pleural Fluid - Aspirate 11/06/16 18:30 Blood Culture - Final Blood Laboratory Results 11/11/16 11:49 11/12/16 06:00 11/11/16 11/12/16 11/13/16 05:59 05:59 05:59 Intake Total 3089 850 500 Output Total 160340.5 1100 1700 Balance -816181.5 -250 -1200 PT 17.4 SEC (12.0-15.0) H 11/11/16 04:00 INR 1.43 (0.83-1.16) H 11/11/16 04:00 CXR: Small bibasilar effusions persist with retrocardiac atelectasis. Physical Exam - Physical Exam General Appearance: alert, no apparent distress EENT: other (Nasal cannula 1-2 L) Neck: normal inspection Respiratory: lungs clear (Anteriorly), decreased breath sounds (At bases, left more so than right), rales (Minimal nonspecific rales), No rhonchi, No wheezing , No pleural rub Cardiac/Chest: regular rate, rhythm, No friction rub Abdomen: normal bowel sounds, non-tender, soft Skin: normal color, warm/dry Extremities: pedal edema (Trace) Neuro/Psych: no motor/sensory deficits, No cognition abnormalities ICD10 Worksheet Patient Problems: Problems Problem Status Onset Chronic Disease Mgmt/Transitional Care Acute Dizziness Acute Chest discomfort Acute Atrial fibrillation with RVR Acute Chest pain Acute Atrial fibrillation Acute Elevated troponin Acute Hypoxia Acute Malaise Acute
[2016-11-12] MEDS: RIVAROXABAN 15 MG TAB PO SCH (18:10)
--- NOTE | 2016-11-12 18:38 | HOSPPROG ---
Hospitalist Progress Note Assessment/Plan: 81 yo female with recent hospitalization for chest pain presumed to be a viral pleurisy re-admitted with fevers and radiologic e/o CAP, then developed acute pericardial and pleural effusions requiring pericardiocentesis and thoracentesis. Condition now improving. # Pericarditis with pericardial effusion causing acute tamponade with hypotension requiring pericardiocentesis - repeat echo 11/10 showed no significant reaccumulation of effusion. Etiology unclear--presumed viral pericarditis but viral serologies negative. FABY pending, RF on the high side of normal, anti ccp pending. ESR mildly elevated. # Acute hypoxemic respiratory failure -multifactorial with bilateral pleural effusions and concurrent pna likely. Clinically improved and now in high 90s on 1.5L but still gets quite sob easily. Appreciate pulmonary following. Repeat CXR today personally reviewed w/no significant change continued bilateral pleural effusion and e/o pna # CAP: as above with bilateral lower lobe infiltrates noted on cxr, being treated with ctx/azithro for planned 7 day course. Blood and pleural fluid cxs negative, respiratory viral panel neg. # Hyponatremia - Na 124 --> 129 with NS, Lasix. Likely component of siadh with lung process present as above. Will check urine osms/na. A fib / SSS with PPM - rate controlled with Coreg, Dilt. CVA prevention with Xarelto (held with recent procedures, will resume). MALINI - cont CPAP Full code DVT PPLX - Xarelto IP care plan reviewed with cardiology, further hx obtained from patients family present at bedside. Patient new to my care. Old records reviewed Subjective: no significant overnight events, patient feeling better other than her breathing which is still labored Objective: Vital Signs Temp Pulse Resp BP Pulse Ox 36.6 C 85 19 166/66 H 97 11/12/16 16:00 11/12/16 18:10 11/12/16 16:00 11/12/16 18:10 11/12/16 16:00 Microbiology 11/09/16 13:00 Gram Stain - Final Pericardial Fluid - Aspirate 11/10/16 12:00 Gram Stain - Final Pleural Fluid - Aspirate 11/06/16 18:30 Blood Culture - Final Blood Laboratory Results 11/11/16 11:49 11/12/16 06:00 11/11/16 11/12/16 11/13/16 05:59 05:59 05:59 Intake Total 3089 850 500 Output Total 431177.5 1100 1700 Balance -255042.5 -250 -1200 PT 17.4 SEC (12.0-15.0) H 11/11/16 04:00 INR 1.43 (0.83-1.16) H 11/11/16 04:00 awake alert nad anicteric op clear rrr no mrg dec bs at bases with scattered rhonchi soft nt nd no cce warm dry well perfused oriented appropriate - Time Spent With Patient Time Spent with Patient: greater than 35 minutes Time Spent with Patient: Greater than 35 minutes spent on this patients care, greater than 50% of time spent counseling, educating, and coordinating care regarding the above mentioned plan. ICD10 Worksheet Patient Problems: Problems Problem Status Onset Chronic Disease [facility]/Transitional Care Acute Dizziness Acute Chest discomfort Acute Atrial fibrillation with RVR Acute Chest pain Acute Atrial fibrillation Acute Elevated troponin Acute Hypoxia Acute Malaise Acute
[2016-11-13] MEDS: guaiFENesin/CODEINE PHOS 10 ML UDCUP PO PRN (02:04)
[2016-11-13] MEDS: LEVOTHYROXINE 50 MCG TAB PO SCH (06:15)
[2016-11-13 07:05] LABS: % IMMATURE GRANULYOCYTES 0.2 % (0.0-1.1); ABSOLUTE IMMATURE GRANULOCYTES 0.01 10^3/uL (0.00-0.10); ADD DIFF? NO; ADD MORPH? NO; ADD SCAN? NO; ATYPICAL LYMPHOCYTE FLAG 10 (0-99); FRAGMENT RBC FLAG 0 (0-99); HEMATOCRIT 30.4 % (38.0-47.0); HEMOGLOBIN 10.5 g/dL (12.6-16.3); LEFT SHIFT FLG 0 (0-99); LIPEMIA HEMOLYSIS FLAG 90 (0-99); MEAN CELL HEMOGLOBIN 31.1 pg (27.9-34.1); MEAN CELL HEMOGLOBIN CONCENTR. 34.5 g/dL (32.4-36.7); MEAN CELL VOLUME 89.9 fL (81.5-99.8); MEAN PLATELET VOLUME 8.6 fL (8.7-11.7); PLATELET CLUMPS FLAG 10 (0-99); PLATELET COUNT 467 10^3/uL (150-400); RED BLOOD CELL COUNT 3.38 10^6/uL (4.18-5.33); RED CELL DISTRIBUTION WIDTH 14.1 % (11.5-15.2)
[2016-11-13 07:09] LABS: ANION GAP 7 mEq/L (8-16); C-REACTIVE PROTEIN 60.3 mg/L (<10.0); CALCIUM 8.9 mg/dL (8.5-10.4); CARBON DIOXIDE 26 mEq/l (22-31); CHLORIDE 100 mEq/L (97-110); CREATININE 0.7 mg/dL (0.6-1.0); GLOMERULAR FILTRATION RATE > 60; GLUCOSE 85 mg/dL (70-100); POTASSIUM 3.7 mEq/L (3.5-5.2); SODIUM 133 mEq/L (134-144)
[2016-11-13] MEDS: AZITHROMYCIN IV 500 MG in D5W 250 ML IV SCH (09:01)
[2016-11-13] MEDS: DILTIAZEM XR 240 MG CAP PO SCH ×2 (09:01→21:14)
[2016-11-13] MEDS: CARVEDILOL 3.125 MG TAB PO SCH ×2 (09:01→17:35)
[2016-11-13] MEDS: guaiFENesin 600 MG TAB.ER PO SCH ×2 (09:01→21:14)
[2016-11-13] MEDS: MULTIVITAMINS 1 EACH TAB PO SCH (09:01)
[2016-11-13] MEDS: FUROSEMIDE 20 MG TAB PO SCH (09:01)
[2016-11-13 09:58] LABS: SEDIMENTATION RATE 41 MM/HR (0-30)
--- NOTE | 2016-11-13 10:10 | PDCARPN ---
Cardiology Progress Note Chief Complaint: Patient feeling better today. Still having atypical shortness of breath, but improved. Assessment/Plan: Assessment: 11-13-16 No complaints voiced this morning. Ambulation in the [place] with improvements noted. She does not feel that she is "back to baseline". was at bedside. Ongoing IV Azithro. Xarelto has been resumed. No growth to any of the cultures that were sent. 11-11-16 Patient is doing better today - better post left thoracentesis. No chest pains or pressure. Mild shortness of breath continues to be noted. Plans, per patient, for right thoracentesis today. No events overnight. Patient becomes "fatigued" rapidly. Some use of incentive spirometry. Pacer interrogation yesterday with underlying atrial fibrillation noted. Cultures on body fluid continue - gram stain on pericardial fluid was negative. 11-10-16 Patient reportedly doing better today, but continues to have complaints of shortness of breath - atypical for the patient. Yesterday, with haemodynamic compromise being appreciate, the patient was taken urgently to the cardiac [facility] for pericardiocentesis. Approximately 750 cc of bloody, serosanguinous fluid was removed, and improvement in haemodynamics was noted. No complaints of chest pains or pressure today, but as stated above, ongoing complaints of shortness of breath. Tachypnea continues to be noted with supplemental oxygen at 6 liters/min (and sats of 97%). Family was at bedside today. Plans for pleural tap later today. Repeat echocardiogram today (limited) without appreciable reaccumulation of fluid noted. 11-09-16 Patient is an 81 y/o female with history of HTN, MALINI with CPAP use, pAF (on Xarelto with [id number] score of 5), and SSS s/p PPM, who presents back to [facility] with complaints of cough and shortness of breath, about one week post discharge from the hospital for Community Acquired Pneumonia (with two day admission). Patient was admitted about three days prior to today, and has "felt poorly" during this admission. When the patient was seen this morning by cardiology, however, there was an acute change in the patient's status - lethary and diaphoresis. No complaints of chest pains have been noted. No PND or orthopnea , but mental status was clearly altered. Blood pressure was acutely noted to be hypotensive (80's/50's). Mentition was grossly intact, but slowed. and family were present in the room. Outpatient testing with [facility] ([facility] from 01-22-16) was reviewed, as well as the last several outpatient notes from my partner (Dr. Nicanor Silverio). Echocardiogram from 10-28-16 with normal left ventricular systolic ejection fraction and NO pericardial effusion. Limited echocardiogram today with moderate to large pericardial effusion with tamponade physiology. Large left sided pleural effusion was also noted. Plan: (1) Maintain Xarelto for CVA prophylaxis given atrial fibrillation (2) Outpatient cardiology follow up in 3-5 days recommended (3) PT/OT with recommendation for ambulation with walker - patient walked with this assistance and felt better Subjective: Mild dyspnea continues to be noted Reviewed/Discussed With: family, hospitalist, multidisciplinary team Objective: Vital Signs (8 Hrs) Temp Pulse Resp BP Pulse Ox 11/13/16 09:01 88 106/62 11/13/16 08:00 36.4 C 18 95 11/13/16 04:00 36.6 C 80 16 97/71 L 95 Intake/Output (24 Hrs) 11/12/16 11/13/16 11/14/16 05:59 05:59 05:59 Intake Total 850 800 Output Total 1100 2220 Balance -250 -1420 Intake: Oral (ml) 850 800 Output: Urine (ml) 1100 2220 Bedside Commode 200 520 Toilet 900 1700 Other: Intake Quantity Yes Sufficient Number of Voids Toilet 2 Result Diagrams: 11/13/16 06:30 11/13/16 06:30 EKG: ventricular pacing with underlying atrial fibrillation (likely) Telemetry: ventricular pacing - Physical Exam Constitutional: WDWN, no apparent distress Eyes: PERRL, EOMI Ears, Nose, Mouth, Throat: moist mucous membranes Cardiovascular: regular rate and rhythm, no rubs, no gallops, systolic murmur Peripheral Pulses: 2+: dorsalis-pedis (R), dorsalis-pedis (L) Respiratory: clear to auscultate bilat, reduced air movement (in bases) Gastrointestinal: normoactive bowel sounds, no tenderness Skin: no rashes, no edema Musculoskeletal: no muscular tenderness, no joint effusions Neurologic: AAOx3, CN II-XII grossly intact Psychiatric: cooperative, interactive, following commands ICD10 Worksheet Patient Problems: Problems Problem Status Onset Chronic Disease Mgmt/Transitional Care Acute Hypoxia Acute Malaise Acute Atrial fibrillation Acute Atrial fibrillation with RVR Acute Chest discomfort Acute Chest pain Acute Dizziness Acute Elevated troponin Acute
[2016-11-13] MEDS ORDERED: DIPHENHYDRAMINE CREAM TP PRN (10:27)
[2016-11-13] MEDS: ONDANSETRON DISINTEGRATING 4 MG TAB PO PRN (13:27)
[2016-11-13] MEDS ORDERED: ALPRAZolam 1 MG TAB PO PRN (15:23)
--- NOTE | 2016-11-13 17:40 | SOAPPROG ---
SOAP Progress Note Assessment/Plan: Assessment: Pleural/pericardial effusions: Presented 11/06 with shortness of breath, fevers and cough. [place] to have pneumonia however subsequently was found to have relatively large pericardial and pleural effusions. Query etiology. Status post pericardiocentesis and left thoracentesis. Pleural fluid borderline exudative but pretty benign overall. No evidence of a bacterial infection. Possibly viral. Viral respiratory panel negative, but other viruses such as Coxsackie and Echo were not tested. No evidence of rheumatoid arthritis. FABY pending. Nonspecific elevations of ESR and CRP. Chest x-ray 11/12 improved, but some fluid and posterior infiltrate/atelectasis persists. Cardiac: Stable. Paced. Cardiology following. Hyponatremia: Sodium stable 133, improved. On fluid restriction and salt tabs Possible pneumonia: Doubt clinically. On appropriate antibiotics for community -acquired organisms. Treated for 7 days, and now stopped.. DVT prophylaxis: Back on full-dose anticoagulation Plan: Continue care. Will repeat chest x-ray tomorrow. Home soon, possibly tomorrow from a pulmonary standpoint. Final decision per Cardiology. May need oxygen on discharge. Wean oxygen as tolerated. Increase ambulation. Continue IS. Will need a follow-up chest x-ray 2 weeks after discharge. She can follow up with me in the office or her primary care physician for this, or Cardiology. Subjective: Doing okay. Complains of some fatigue and nausea this morning. Occasional cough, no mucus. Mild shortness of breath. Objective: Vital Signs Temp Pulse Resp BP Pulse Ox 36.8 C 95 20 115/65 96 11/13/16 16:13 11/13/16 17:35 11/13/16 16:13 11/13/16 17:35 11/13/16 16:13 Microbiology 11/10/16 12:00 Gram Stain - Final Pleural Fluid - Aspirate Laboratory Results 11/13/16 06:30 11/13/16 06:30 11/12/16 11/13/16 11/14/16 05:59 05:59 05:59 Intake Total 850 800 Output Total 1100 2220 600 Balance -250 -1420 -600 PT 17.4 SEC (12.0-15.0) H 11/11/16 04:00 INR 1.43 (0.83-1.16) H 11/11/16 04:00 Laboratory Tests 11/11/16 11/13/16 11/13/16 11:49 06:30 06:30 ESR 41 H C-Reactive Protein 60.3 H Anti-Cycl Citrul Peptide < 15.6 Physical Exam - Physical Exam General Appearance: alert, no apparent distress EENT: other (Nasal cannula 1.5 L) Neck: normal inspection Respiratory: decreased breath sounds (At bases), rales (Bibasilar rales present with associated dullness.), No rhonchi, No wheezing Cardiac/Chest: regular rate, rhythm (Tachycardic at times), systolic murmur Abdomen: normal bowel sounds, non-tender, soft Skin: normal color, warm/dry Extremities: No pedal edema Neuro/Psych: no motor/sensory deficits, No cognition abnormalities ICD10 Worksheet Patient Problems: Problems Problem Status Onset Chronic Disease Mgmt/Transitional Care Acute Dizziness Acute Chest discomfort Acute Atrial fibrillation with RVR Acute Chest pain Acute Atrial fibrillation Acute Elevated troponin Acute Hypoxia Acute Malaise Acute
[2016-11-13] MEDS ORDERED: RIVAROXABAN 20 MG TAB PO SCH (18:00)
--- NOTE | 2016-11-13 18:04 | HOSPPROG ---
Hospitalist Progress Note Assessment/Plan: 81 yo female with recent hospitalization for chest pain presumed to be a viral pleurisy re-admitted with fevers and radiologic e/o CAP, then developed acute pericardial and pleural effusions requiring pericardiocentesis and thoracentesis. Condition now improving. # Pericarditis with pericardial effusion and cardiac tamponade - s/p pericardiocentesis and with repeat echo 11/10 showed no significant reaccumulation of effusion. Etiology unclear--presumed viral pericarditis but viral serologies negative (not all checked however). FABY pending, RF on the high side of normal, anti ccp pending. ESR/CRP elevated but non specific. # Acute on chronic hypoxemic respiratory failure -multifactorial with bilateral pleural effusions and concurrent pna suspected. Clinically improved and now in high 90s on 1.5L but still gets quite sob easily. Plan to repeat cxr in am, has been on o2 at home prior to this and will dc home likely on supplemental o2 # CAP: as above with bilateral lower lobe infiltrates noted on cxr though cultures all negative unable to completely rule out concurrent bacterial pna, has completed 7 day course of ctx/azithro as of today and will dc abx and monitor. # Hyponatremia - likely multifactorial, and related initially to hypovolemia but also suspect component of siadh related to pulmonary process as above. Has improved on fluid restriction and if continues to normalize will loosen restriction from 1200ml to 2L. # A fib / SSS with PPM - rate controlled with Coreg, Dilt. CVA prevention with Xarelto # MALINI - cont CPAP Full code DVT PPLX - Xarelto IP care plan reviewed with cardiology and CM, further hx obtained from patients family present at bedside. Subjective: no significant overnight events, patient does note difficulty sleeping last night and is fatigued today, she has no change in sob that is worse when she exerts herself, no chest pain or other new complaints Objective: Vital Signs Temp Pulse Resp BP Pulse Ox 36.8 C 95 20 115/65 96 11/13/16 16:13 11/13/16 17:35 11/13/16 16:13 11/13/16 17:35 11/13/16 16:13 Microbiology 11/10/16 12:00 Gram Stain - Final Pleural Fluid - Aspirate Laboratory Results 11/13/16 06:30 11/13/16 06:30 11/12/16 11/13/16 11/14/16 05:59 05:59 05:59 Intake Total 850 800 Output Total 1100 2220 600 Balance -250 -1420 -600 PT 17.4 SEC (12.0-15.0) H 11/11/16 04:00 INR 1.43 (0.83-1.16) H 11/11/16 04:00 awake alert nad anicteric op clear rrr no mrg dec bs at bases with scattered rhonchi soft nt nd no cce warm dry well perfused oriented appropriate - Time Spent With Patient Time Spent with Patient: greater than 35 minutes Time Spent with Patient: Greater than 35 minutes spent on this patients care, greater than 50% of time spent counseling, educating, and coordinating care regarding the above mentioned plan. ICD10 Worksheet Patient Problems: Problems Problem Status Onset Chronic Disease Mgmt/Transitional Care Acute Dizziness Acute Chest discomfort Acute Atrial fibrillation with RVR Acute Chest pain Acute Atrial fibrillation Acute Elevated troponin Acute Hypoxia Acute Malaise Acute
[2016-11-14] MEDS: LEVOTHYROXINE 50 MCG TAB PO SCH (03:11)
[2016-11-14] MEDS: guaiFENesin/CODEINE PHOS 10 ML UDCUP PO PRN (03:11)
[2016-11-14] MEDS: DILTIAZEM XR 240 MG CAP PO SCH (08:03)
[2016-11-14] MEDS: MULTIVITAMINS 1 EACH TAB PO SCH (08:05)
[2016-11-14] MEDS: guaiFENesin 600 MG TAB.ER PO SCH (08:05)
[2016-11-14] MEDS: FUROSEMIDE 20 MG TAB PO SCH (08:05)
[2016-11-14] MEDS: CARVEDILOL 3.125 MG TAB PO SCH (08:05)
--- NOTE | 2016-11-14 11:39 | PDDCSUM ---
Discharge Summary Discharge Summary: Dates of service 11/06-11/14/16 Discharge dx: # pericarditis/pericardial effusion # cardiac tamponade # pleural effusions # acute on chronic hypoxic respiratory failure # pneumonia # hyponatremia # a fib # caitlyn Consultations: cardiology, pulmonology Procedures performed: serial echocardiograms, chest ct, pericardiocentesis, PICC line placement, thoracentesis Hospital course by problem: # Pericarditis with pericardial effusion and cardiac tamponade - s/p pericardiocentesis and with repeat echo 11/10 showed no significant reaccumulation of effusion. -Etiology unclear--presumed viral pericarditis but viral serologies negative (not all checked however), cultures all negative. FABY negative, RF very minimally elevated (12.1 with 12 being upper limit of normal, anti ccp negative. ESR/CRP elevated but non specific. # Acute on chronic hypoxemic respiratory failure -multifactorial with bilateral pleural effusions and concurrent pna suspected. Clinically improved and now in high 90s on 1.5L but still gets quite sob easily. Has been on O2 at home for the last several months. Will f/u with pulmonary and pcp to determine length of o2 need and to monitor # CAP: as above with bilateral lower lobe infiltrates noted on cxr though cultures all negative unable to completely rule out concurrent bacterial pna, has completed 7 day course of ctx/azithro as of today and will dc abx and monitor. # Hyponatremia - likely multifactorial, and related initially to hypovolemia but also suspect component of siadh related to pulmonary process as above. Has improved on fluid restriction --will need to f/u as an OP # A fib / SSS with PPM - rate controlled with Coreg, Dilt. CVA prevention with Xarelto # CAITLYN - cont CPAP Dispo: dc home f/u with pulmonary/cardiology--will need repeat echo in 1 month > 35 minutes spent in dc of patient, more than half in coordination of care and counseling of patient and her family
--- NOTE | 2016-11-14 12:32 | PDCARPN ---
Cardiology Progress Note Assessment/Plan: Assessment/plan: 81-year-old female with a history of paroxysmal atrial fibrillation and permanent pacemaker. He was admitted on November 09 with dyspnea and found to have pleural effusions as well as pericardial effusion and cardiac tamponade. It was felt that she had a viral process and possibly superimposed pneumonia. She received appropriate antibiotics. She underwent pericardiocentesis on November 09 and fluid today has not grown any organisms. Cytology is pending. She appears clinically improved. 1. Pericardial effusion/tamponade: Follow-up echocardiogram with trivial residual fluid. Unclear etiology. Possibly viral. Will need follow-up of cytology from the fluid. Recommend limited echocardiogram and follow up with Dr. Bermeo or Dr. Silverio in our office in 7-10 days. 2. Respiratory infection: Initially this appeared viral. Possible superimposed bacterial. She has received antibiotics. She will require home oxygen, at least short term. 3. Paroxysmal atrial fibrillation: She is currently in atrial fibrillation. She is on diltiazem and Coreg. She is on Xarelto for her CHADS2 Vasc score of at least 4. She appears stable for discharge from a cardiac standpoint. Follow-up as detailed per 1. 11/14/16 12:29 Subjective: Elsie feels better. With oxygen, she does not have exertional dyspnea. She denies chest pain. She has ready to go home. Reviewed/Discussed With: family, hospitalist Objective: Vital Signs (8 Hrs) Temp Pulse Resp BP Pulse Ox 11/14/16 10:05 92 11/14/16 08:15 36.9 C 90 23 H 107/62 94 11/14/16 08:03 83 107/62 Intake/Output (24 Hrs) 11/13/16 11/14/16 11/15/16 05:59 05:59 05:59 Intake Total 800 780 Output Total 2220 1600 700 Balance -1420 -820 -700 Intake: Oral (ml) 800 780 Output: Urine (ml) 2220 1600 700 Bedside Commode 520 Toilet 1700 1600 700 Other: Intake Quantity Yes Sufficient Number of Voids Toilet 3 No acute distress JVP 10. Irregular regular rhythm without murmur rub or gallop Decreased breath sounds at the right base. No wheezes rhonchi or rales No lower extremity edema Result Diagrams: 11/13/16 06:30 11/13/16 06:30 Telemetry: Atrial fibrillation with mostly controlled ventricular response Echocardiogram: November 09 and November 10 echocardiograms reviewed. Interval pericardiocentesis. Trivial residual pericardial effusion on 11/10. ICD10 Worksheet Patient Problems: Problems Problem Status Onset Chronic Disease Mgmt/Transitional Care Acute Dizziness Acute Chest discomfort Acute Atrial fibrillation with RVR Acute Chest pain Acute Atrial fibrillation Acute Elevated troponin Acute Hypoxia Acute Malaise Acute
[2016-11-14 13:08] VITALS: BP 117/62; PULSE 81; RESP 20; TEMP 97.3; O2SAT 93
== END 2016-11-14 14:13 | disposition home or self-care (01) | DRG 314 ==
LOC: OBSVTOIN 18:09 → F3E 18:40 → F2N 11-09 13:04 → F2W 11-11 15:15
PROVIDERS: ADMIT Hospitalist; ATTEND Hospitalist
PROC: 0W9D30Z Drainage of Pericardial Cavity with Drainage Device, Percutaneous Approach (ICD-10-PCS; 2016-11-09)
PROC: 02HV33Z Insertion of Infusion Device into Superior Vena Cava, Percutaneous Approach (ICD-10-PCS; 2016-11-09)
PROC: 0W9B3ZX Drainage of Left Pleural Cavity, Percutaneous Approach, Diagnostic (ICD-10-PCS; principal; 2016-11-12)
PROC: 30233K1 Transfusion of Nonautologous Frozen Plasma into Peripheral Vein, Percutaneous Approach (ICD-10-PCS; 2016-11-12)
DX: I31.4 Cardiac tamponade (principal); J96.21 Acute and chronic respiratory failure with hypoxia; J18.9 Pneumonia, unspecified organism; J90 Pleural effusion, not elsewhere classified; E87.1 Hypo-osmolality and hyponatremia; I48.91 Unspecified atrial fibrillation; G47.33 Obstructive sleep apnea (adult) (pediatric); Z79.01 Long term (current) use of anticoagulants; I25.2 Old myocardial infarction; Z95.0 Presence of cardiac pacemaker; E03.9 Hypothyroidism, unspecified
CPT/HCPCS: 87449-90; 97116-GP; 97161-GP; 97165-GO; 97530-GP; 97535-GO; C1751; G8978-GP-CI; G8979-GP-CH; G8979-GP-CI; G8980-GP-CI; G8987-GO-CI; G8988-GO-CI; G8989-GO-CI; J0456; J0696; J1940; J2250; J2405; J3010; P9017; P9041

== ENCOUNTER → 2016-11-21 | Outpatient (CLI) | payer OTHER | LOC: BHFA 11:00 | PROVIDERS: ATTEND Internal Medicine Cardiovascular Disease | DX: R06.02 Shortness of breath (principal); R53.83 Other fatigue; I31.3 Pericardial effusion (noninflammatory) ==

== ENCOUNTER → 2016-12-08 | Outpatient (CLI) | payer OTHER | LOC: FIMAGING 11:14 | PROVIDERS: ATTEND Internal Medicine Cardiovascular Disease | DX: J90 Pleural effusion, not elsewhere classified (principal) ==

== ENCOUNTER → 2016-12-08 | Outpatient (CLI) | payer OTHER | LOC: BHFA 10:45 | PROVIDERS: ATTEND Internal Medicine Cardiovascular Disease | DX: I31.9 Disease of pericardium, unspecified (principal) ==

== ENCOUNTER → 2017-02-09 | Outpatient (CLI) | payer OTHER | LOC: FIMAGING 14:26 | PROVIDERS: ATTEND Internal Medicine Pulmonary Disease | DX: Z09 Encounter for follow-up examination after completed treatment for conditions other than malignant neoplasm (principal); Z87.09 Personal history of other diseases of the respiratory system; Z95.0 Presence of cardiac pacemaker ==

== ENCOUNTER 2017-03-21 08:07 | Emergency (ER) | payer OTHER ==
--- NOTE | 2017-03-21 08:15 | EDPHY ---
H & P Time Seen by Provider: 03/21/17 08:13 HPI/ROS: CHIEF COMPLAINT: Dizziness, weakness, left facial paresthesia, questionable asymmetric weakness now resolved HISTORY OF PRESENT ILLNESS: The patient is brought into the emergency department by paramedics. She reportedly developed an episode of dizziness and weakness this morning which resulted in a minor fall. By report, the patient was having some left facial paresthesias which she reports she developed some time to time secondary to "stress migraines" she states the symptoms she experienced today was typical of that. She currently denies any ongoing facial paresthesias. The patient denies asymmetric weakness currently. By snaker driving horses report, she was felt to be more weak in the left arm and leg when they arrived. The patient does have a history of TIA in 2014. She was hospitalized at that point time. She had an unremarkable CT angiogram of her head and neck at that point time. Patient does have a history of atrial fibrillation. She is chronically anticoagulated with Xarelto per her discharge instructions in November of 2016. REVIEW OF SYSTEMS: A comprehensive 10 point review of systems is otherwise negative aside from elements mentioned in the history of present illness. Source: Patient, Family - Medical/Surgical History Hx Asthma: No Hx Chronic Respiratory Disease: No Hx Diabetes: No Hx Cardiac Disease: Yes Hx Renal Disease: No Hx Cirrhosis: No Hx Alcoholism: No Hx HIV/AIDS: No Hx Splenectomy or Spleen Trauma: No Other PMH: HTN, NM, cardiac cath, bilat partial knee replacement, pacemaker- bradycardia, angina, retinal tear, CPAP, MALINI, parathyroidectomy Jun 19 2014, - Social History Smoking Status: Never smoked - Physical Exam Exam: General Appearance: Alert, no distress Eyes: Pupils equal and round no pallor or injection ENT, Mouth: Mucous membranes moist Respiratory: There are no retractions, lungs are clear to auscultation Cardiovascular: Irregular consistent with underlying AFib Gastrointestinal: Abdomen is soft and nontender, no masses, bowel sounds normal Neurological: Alert and oriented x4, 5/5 strength noted all 4 extremities, no facial droop appreciated, sensation intact to light touch in face all extremities. Skin: Warm and dry, no rashes Musculoskeletal: Neck is supple nontender Extremities: symmetrical, full range of motion Constitutional: Initial Vital Signs Temperature (C) 36.7 C 03/21/17 08:07 Heart Rate 115 H 03/21/17 08:07 Respiratory Rate 20 03/21/17 08:07 Blood Pressure 145/91 H 03/21/17 08:07 O2 Sat (%) 98 03/21/17 08:07 O2 Delivery Mode Room Air Allergies/Adverse Reactions: amlodipine besylate [From Norvasc] Allergy (Severe, Verified 03/21/17 08:18) Rash adhesive tape Allergy (Intermediate, Verified 03/21/17 08:18) ITCHING BURNING RED RASH apixaban Allergy (Intermediate, Verified 03/21/17 08:18) Other-Enter Comments iodine [Iodine] Allergy (Unknown, Verified 03/21/17 08:18) Unknown contrast Allergy (Severe, Uncoded 06/06/16 17:59) Anaphylaxis Home Medications: Medication Instructions Recorded Diltiazem HCl [Diltiazem 24Hr Cd] 240 mg PO BID 12/11/11 Multivitamins [Multivitamin (*)] 1 each PO DAILY 02/26/15 Calcium Carbonate [Tums 500MG (*)] 500 mg PO DAILY PRN 06/06/16 Levothyroxine [Synthroid 50 mcg 50 mcg PO DAILY06 06/06/16 (*)] Rivaroxaban [Xarelto] 20 mg PO DAILY@18 06/06/16 Hydrochlorothiazide [HCTZ (*)] 25 mg PO DAILY 10/28/16 Propylene Glycol/Peg 400/Pf 1 each OP HS PRN 10/28/16 [Systane 0.3-0.4% Eye Drops] diphenhydrAMINE [Benadryl 50 MG 50 mg PO HS 10/28/16 (*)] Benzonatate [Tessalon Pearles] 100 mg PO TID PRN #20 cap 11/14/16 Carvedilol [Coreg (*)] 3.125 mg PO BIDMEAL #60 tab 11/14/16 Docusate Sodium [Colace 100 MG (*)] 100 mg PO BID PRN #0 cap 11/14/16 Ibuprofen [Motrin (*)] 600 mg PO Q6HRS PRN #0 tab 11/14/16 Levalbuterol Inhaler [Xopenex Hfa 1 puffs IH TID PRN #1 mdi 11/14/16 Inhaler (*)] guaiFENesin [Mucinex 600 MG (*)] 600 mg PO BID tab.er 11/14/16 guaiFENesin/DEXTROMETHORPHAN 10 ml PO Q4HRS PRN #150 ml 11/14/16 [Robitussin Dm Oral Liquid (*)] Medical Decision Making - Diagnostics EKG Interpretation: EKG: Complete interpretation has been separately recorded in the [facility] archive. Summary impression: Atrial fibrillation, rate 110 Imaging Results: Imaging Impressions Head CT 03/21/17 08:34 Impression: 1. No acute intracranial findings. 2. Diffuse cerebral atrophy with periventricular and subcortical low attenuation consistent with chronic microvascular ischemic gliosis. 3. Severe degenerative change in the right temporomandibular joint. Findings discussed with Cooper Handley 03/21/2017 at 9:03. ED Course/Re-evaluation: The patient was brought in by paramedics as a stroke alert. I evaluated the patient immediately upon her arrival to the emergency department. As I examined the patient, her NIH stroke scale is currently 0. She is currently anticoagulated with Xarelto. I have downgraded her from a stroke alert based upon her presentation demonstrated no evidence of an obvious stroke upon arrival. I reviewed the patient's past medical records including the results of her CT angiogram in 2014. Patient's EKG demonstrates chronic atrial fibrillation. 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 Given the patient's fall and current anticoagulation status, a CT scan of the brain was ordered to exclude for hemorrhage. Given her history of pericardial effusion and tamponade a formal cardiac echo was performed. 9:30 a.m.: Patient did have a formal cardiac echocardiogram which demonstrates no evidence of a recurrent pericardial effusion. The patient presents to the ED after an episode of transient dizziness. I appreciate no obvious focality on the patient's exam. Her NIH stroke scale is currently 0. She is currently anticoagulated with Xarelto. She has chronic atrial fibrillation. Patient cannot undergo MRI scanning secondary to her pacemaker. The patient has no evidence of a recurrent pericardial effusion. The patient did have a slightly elevated BUN consistent with mild dehydration. She received 500 mL is of normal saline. I have had a lengthy discussion with the patient about the possibility of TIA. She would like to be discharged home. She does understand that there is not a test that can rule in or rule out the possibility of TIA. At this point time she appears to be optimally managed and fully anticoagulated. She would not be a candidate for thrombolytic therapy. The patient is ambulatory without any recurrent dizziness. Her neurologic examination is entirely normal. She will be discharged home with customary aftercare instructions and return precautions. Differential Diagnosis: Differential diagnosis considered includes stroke, TIA, recurrent pericardial effusion, urinary tract infection, dehydration, metabolic abnormality - Data Points Laboratory Results: Laboratory Results 03/21/17 08:23 03/21/17 08:23 03/21/17 03/21/17 03/21/17 09:00 08:23 08:23 WBC RBC Hgb Hct MCV MCH MCHC RDW Plt Count MPV Neut % (Auto) Lymph % (Auto) [place] % (Auto) Eos % (Auto) Baso % (Auto) Nucleat RBC Rel Count Absolute Neuts (auto) Absolute Lymphs (auto) Absolute Monos (auto) Absolute Eos (auto) Absolute Basos (auto) Absolute Nucleated RBC Immature Gran % Seg Neutrophils % Lymphocytes % Monocytes % Eosinophils % Basophils % Immature Gran # Absolute Seg Neuts Absolute Lymphocytes Absolute Monocytes Absolute Eosinophils Absolute Basophils RBC/WBC/PLT Morphology Atypical Lymphocytes Platelet Estimate Smear Review By PT 18.8 SEC H SEC (12.0-15.0) INR 1.57 H (0.83-1.16) APTT 40.2 SEC H SEC (23.0-38.0) Sodium 137 mEq/L mEq/L (134-144) Potassium 3.9 mEq/L mEq/L (3.5-5.2) Chloride 102 mEq/L mEq/L (97-110) Carbon Dioxide 22 mEq/l mEq/l (22-31) Anion Gap 13 mEq/L mEq/L (8-16) BUN 32 mg/dL H mg/dL (7-23) Creatinine 1.1 mg/dL H mg/dL (0.6-1.0) Estimated GFR 48 Glucose 98 mg/dL mg/dL (70-100) Calcium 9.7 mg/dL mg/dL (8.5-10.4) Urine Color YELLOW Urine Appearance CLEAR Urine pH 6.0 (5.0-7.5) Ur Specific [place] 1.011 (1.002-1.030) Urine Protein NEGATIVE (NEGATIVE) Urine Ketones NEGATIVE (NEGATIVE) Urine Blood NEGATIVE (NEGATIVE) Urine Nitrate NEGATIVE (NEGATIVE) Urine Bilirubin NEGATIVE (NEGATIVE) Urine Urobilinogen NEGATIVE EU EU (0.2-1.0) Ur Leukocyte Esterase NEGATIVE (NEGATIVE) Urine Glucose NEGATIVE (NEGATIVE) 03/21/17 08:23 WBC 11.54 10^3/uL H 10^3/uL (3.80-9.50) RBC 4.45 10^6/uL 10^6/uL (4.18-5.33) Hgb 13.8 g/dL g/dL (12.6-16.3) Hct 39.9 % % (38.0-47.0) MCV 89.7 fL fL (81.5-99.8) MCH 31.0 pg pg (27.9-34.1) MCHC 34.6 g/dL g/dL (32.4-36.7) RDW 15.6 % H % (11.5-15.2) Plt Count 258 10^3/uL 10^3/uL (150-400) MPV 9.4 fL fL (8.7-11.7) Neut % (Auto) 26.8 % L % (39.3-74.2) Lymph % (Auto) 62.7 % H % (15.0-45.0) [place] % (Auto) 6.6 % % (4.5-13.0) Eos % (Auto) 3.1 % % (0.6-7.6) Baso % (Auto) 0.6 % % (0.3-1.7) Nucleat RBC Rel Count 0.0 % % (0.0-0.2) Absolute Neuts (auto) 3.09 10^3/uL 10^3/uL (1.70-6.50) Absolute Lymphs (auto) 7.24 10^3/uL H 10^3/uL (1.00-3.00) Absolute Monos (auto) 0.76 10^3/uL 10^3/uL (0.30-0.80) Absolute Eos (auto) 0.36 10^3/uL 10^3/uL (0.03-0.40) Absolute Basos (auto) 0.07 10^3/uL 10^3/uL (0.02-0.10) Absolute Nucleated RBC 0.00 10^3/uL 10^3/uL (0-0.01) Immature Gran % 0.2 % % (0.0-1.1) Seg Neutrophils % 13 % % Lymphocytes % 83 % % Monocytes % 1 % % Eosinophils % 2 % % Basophils % 1 % % Immature Gran # 0.02 10^3/uL 10^3/uL (0.00-0.10) Absolute Seg Neuts 1.50 10^/uL L 10^/uL (1.70-6.50) Absolute Lymphocytes 9.58 10^3/uL H 10^3/uL (1.00-3.00) Absolute Monocytes 0.12 10^3/uL L 10^3/uL (0.30-0.80) Absolute Eosinophils 0.23 10^3/uL 10^3/uL (0.03-0.40) Absolute Basophils 0.12 10^3/uL H 10^3/uL (0.02-0.10) RBC/WBC/PLT Morphology NORMAL (NORMAL) Atypical Lymphocytes 3+ H Platelet Estimate ADEQUATE (ADEQ) Smear Review By Pending PT INR APTT Sodium Potassium Chloride Carbon Dioxide Anion Gap BUN Creatinine Estimated GFR Glucose Calcium Urine Color Urine Appearance Urine pH Ur Specific [place] Urine Protein Urine Ketones Urine Blood Urine Nitrate Urine Bilirubin Urine Urobilinogen Ur Leukocyte Esterase Urine Glucose Medications Given: Discontinued Medications Sodium Chloride (Ns) 1,000 mls @ 0 mls/hr IV EDNOW ONE; Wide Open PRN Reason: Protocol Stop: 03/21/17 09:12 Last Admin: 03/21/17 09:20 Dose: 1,000 mls Sodium Chloride (Ns) 500 mls @ 1,000 mls/hr IV EDNOW ONE PRN Reason: Protocol Stop: 03/21/17 09:40 Last Admin: 03/21/17 09:21 Dose: 500 mls Departure - Departure Disposition: Home, Routine, Self-Care Clinical Impression: Dizziness, Atrial fibrillation Condition: Good Instructions: Near Syncope (ED), Dizziness (ED) Additional Instructions: 1. Please return to the emergency department for any recurrent neurologic symptoms, severe headache, chest pain or shortness of breath. 2. Please follow up as scheduled with your regular primary care provider. Referrals: SUREKHA BISHOP [Primary Care Provider] - As per Instructions
[2017-03-21 08:21] VITALS: TEMP 98.1
--- NOTE | 2017-03-21 08:31 | CPEKG ---
Heart Rate: 110 RR Interval: 545 QRSD Interval: 82 QT Interval: 348 QTC Interval: 471 QRS [place]: -43 T Wave [place]: 109 EKG Severity - ABNORMAL ECG - EKG Impression: ATRIAL FIBRILLATION EKG Impression: LEFT ANTERIOR FASCICULAR BLOCK EKG Impression: NONSPECIFIC T ABNORMALITIES, ANT-LAT LEADS Electronically Signed By: Cooper Handley 21-Mar-2017 08:38:38
[2017-03-21 08:32] LABS: % IMMATURE GRANULYOCYTES 0.2 % (0.0-1.1); ABSOLUTE IMMATURE GRANULOCYTES 0.02 10^3/uL (0.00-0.10); ADD DIFF? NO; ADD MORPH? NO; ADD SCAN? YES; ATYPICAL LYMPHOCYTE FLAG 10 (0-99); FRAGMENT RBC FLAG 0 (0-99); HEMATOCRIT 39.9 % (38.0-47.0); HEMOGLOBIN 13.8 g/dL (12.6-16.3); LEFT SHIFT FLG 0 (0-99); LIPEMIA HEMOLYSIS FLAG 90 (0-99); MEAN CELL HEMOGLOBIN CONCENTR. 34.6 g/dL (32.4-36.7); MEAN CELL VOLUME 89.7 fL (81.5-99.8); MEAN PLATELET VOLUME 9.4 fL (8.7-11.7); PLATELET CLUMPS FLAG 0 (0-99); PLATELET COUNT 258 10^3/uL (150-400); RED BLOOD CELL COUNT 4.45 10^6/uL (4.18-5.33); RED CELL DISTRIBUTION WIDTH 15.6 % (11.5-15.2)
[2017-03-21 08:41] LABS: INR 1.57 (0.83-1.16); PROTIME(PATIENT) 18.8 SEC (12.0-15.0)
[2017-03-21 08:42] LABS: APTT 40.2 SEC (23.0-38.0)
[2017-03-21 08:48] LABS: ANION GAP 13 mEq/L (8-16); CALCIUM 9.7 mg/dL (8.5-10.4); CARBON DIOXIDE 22 mEq/l (22-31); CHLORIDE 102 mEq/L (97-110); CREATININE 1.1 mg/dL (0.6-1.0); GLOMERULAR FILTRATION RATE 48; GLUCOSE 98 mg/dL (70-100); POTASSIUM 3.9 mEq/L (3.5-5.2); SODIUM 137 mEq/L (134-144)
[2017-03-21 08:50] LABS: SCAN POSITIVE
[2017-03-21 08:55] LABS: PLATELET ESTIMATE ADEQUATE (ADEQ)
[2017-03-21] MEDS ORDERED: NS 500 ML IV ONE (09:11)
[2017-03-21] MEDS ORDERED: NS 1,000 ML IV ONE (09:11)
[2017-03-21 09:13] LABS: COLOR YELLOW; LEUKOCYTE ESTERASE,URINE NEGATIVE (NEGATIVE); NITRITE,URINE NEGATIVE (NEGATIVE)
--- NOTE | 2017-03-21 10:11 | ECHO ---
[email or web address] [address] [address] Main: [phone] Fax: [email or web address] Echocardiogram Name: FELIX HERRERA MR#: [id number] Study Date: 03/21/2017 Study Time: 09:21 AM Date of : 1935 Age: 81 year(s) Height: 165.1 cm (65 in.) Weight: 75.3 kg (166 lb.) BSA: 1.83 m2 Gender: Female Examination: Echo Indication: presyncope, h/o pericardial effusion with tamponade h/o remote CO Image Quality: Contrast: Requested by: Cooper Handley BP: / Heart Rate: Rhythm: Indication: presyncope, h/o pericardial effusion with tamponade h/o remote CO Procedure Staff Health Care Aide: Cary Tenorio Reading Physician: Brandee Dumont Requesting Provider: Conclusions: Normal size left ventricle. Borderline concentric LV hypertrophy. Normal global systolic LV function. EF is 61 %. All scored wall segments are normal. Normal size right ventricle. Normal RV function. There is a pacemaker lead noted in the right ventricle. The left atrium is mildly dilated. The right atrium is mildly dilated. Mild mitral valve regurgitation is present. Mild to moderate tricuspid valve regurgitation. The pulmonary artery pressure is mildly increased. Compared with 12/08/2016 pericardial effusion no longer present Measurements: Chambers Valvular Assessment AV/MV Valvular Assessment TV/PV Normal Normal Normal Name Value Range Name Value Range Name Value Range Ao Olivia (MM): 3.1 cm (2.2 cm-3.7 AV Vmax: 1.23 m/s (1 m/s-1.7 TR Vmax: 2.72 mm/s ( - ) cm) m/s) TR PGmax: 30 mmHg ( - ) IVSd (2D): 1.0 cm (0.6 cm-1.1 AV maxP mmHg ( - ) syst. PAP: 40 mmHg ( - ) cm) LVOT Vmax: 0.84 m/s (0.7 m/s-1.1 PV Vmax: 0.90 m/s (0.6 m/s-0.9 LVDd (2D): 4.1 cm (3.9 cm-5.3 m/s) m/s) cm) MV E Vmax: 1.30 m/s ( - ) PV PGmax: 3 mmHg ( - ) LVDs (2D): 2.8 cm (2.1 cm-4 cm) LVPWd (2D): 1.0 cm ( - ) LVEF (BP): 61 % (>=55 %) Patient: FELIX HERRERA Study Date: 03/21/2017 Page 1 of 3 09:21 AM RVDd(2D): 3.6 cm (1.9 cm-3.8 cmmm) Continued Measurements: Chambers Valvular Assessment AV/MV Valvular Assessment TV/PV Name Value Name Value Name Value LADs Lon.0 cm MV DecTime: 118 m/s CVP (est.): 10 mmHg LA Area: 23.1 cm2 MV E/E' Septal: 20.50 LA Volume: 72 ml MV E/E' Lateral: 11.80 LA Volume Index: 39.3 ml/m2 TAPSE: 1.6 cm RA Area: 21.2 cm2 Additional Vessels Name Value Ao Ascendin.0 cm Findings: Left Ventricle: Normal size left ventricle. Borderline concentric LV hypertrophy. Normal global systolic LV function. EF is 61 %. All scored wall segments are normal. Right Ventricle: Normal size right ventricle. Normal RV function. There is a pacemaker lead noted in the right ventricle. Left Atrium: The left atrium is mildly dilated. Right Atrium: The right atrium is mildly dilated. There is a pacemaker lead noted in the right atrium. Mitral Valve: There is mild thickening of the mitral valve leaflets. Mild mitral valve regurgitation is present. Aortic Valve: The aortic valve is tri-leaflet. Aortic sclerosis is present. There is no aortic valve regurgitation. No aortic valve stenosis is present. Tricuspid Valve: The tricuspid valve is normal in appearance and function. Mild to moderate tricuspid valve regurgitation. The pulmonary artery pressure is mildly increased. Pulmonic Valve: The pulmonic valve is normal in appearance and function. Trivial pulmonic valve regurgitation. Aorta: The aorta is normal. Normal size aortic root measuring 3.1 cm. Normal size ascending aorta measuring 3.0 cm. IVC: The IVC is dilated. Pericardium: No pericardial effusion. (No Signature Object) Wall Motion Scores Patient: FELIX HERRERA Study Date: 03/21/2017 Page 2 of 3 09:21 AM -1 - Not Scored, 0 - Unknown, 1 - Normal or hyperkinesia, 2 - Hypokinesia, 3 - Akinesia, 4 - Dyskinesia, 5 - Aneurysm Patient: FELIX HERRERA Study Date: 03/21/2017 Page 3 of 3 09:21 AM [id number]
[2017-03-21 10:53] VITALS: BP 124/69; PULSE 87; RESP 18; O2SAT 96
== END 2017-03-21 11:22 | disposition home or self-care (01) ==
LOC: EDUNIT#
DX: I48.91 Unspecified atrial fibrillation (principal); I10 Essential (primary) hypertension; I25.2 Old myocardial infarction; E86.9 Volume depletion, unspecified; Z79.01 Long term (current) use of anticoagulants

== ENCOUNTER 2017-05-21 12:21 | Emergency (ER) | payer OTHER ==
--- NOTE | 2017-05-21 12:53 | EDPHY ---
H & P Stated Complaint: BP running high HPI/ROS: HPI CHIEF COMPLAINT: Asymptomatic hypertension HISTORY OF PRESENT ILLNESS: This patient is a pleasant 81-year-old male, significant past medical history for atrial fib on Xarelto, as well as hypertension, she presents emergency room as she had questions about her blood pressure being high. She reports she has been seen 160 over 90s at home. She runs in the 130s to 140s. She took her blood pressure multiple times this morning and noticed it was high. She denies any chest pain or shortness of breath. Denies headache. Denies fullness or pain. Denies weakness. She has been compliant with blood pressure medication. She does report that each time she took she got more stressed. Past Medical History: Hypertension, AFib, pericarditis Past Surgical History: No recent surgery. Social History: Denies drugs alcohol tobacco products. Lives locally here. Family History: Noncontributory. ROS REVIEW OF SYSTEMS: A comprehensive 10 point review of systems is otherwise negative aside from elements mentioned in the history of present illness. Exam Constitutional upon nontoxic triage nursing summary reviewed, vital signs reviewed, awake/alert. Vitals reviewed upon arrival. Eyes normal conjunctivae and sclera, EOMI, PERRLA. HENT normal inspection, atraumatic, moist mucus membranes, no epistaxis, neck supple/ no meningismus, no raccoon eyes. Respiratory clear to auscultation bilaterally, normal breath sounds, no respiratory distress, no wheezing. Cardiovascular rate normal, regular rhythm, no murmur, no edema, distal pulses normal. Gastrointestinal soft, non-tender, no rebound, no guarding, normal bowel sounds, no distension, no pulsatile mass. Genitourinary no CVA tenderness. Musculoskeletal no midline vertebral tenderness, full range of motion, no calf swelling, no tenderness of extremities, no meningismus, good pulses, neurovascularly intact. Skin pink, warm, & dry, no rash, skin atraumatic. Neurologic awake, alert and oriented x 3, AAOx3, moves all 4 extremities equally, motor intact, sensory intact, CN II-XII intact, normal cerebellar, normal vision, normal speech. Psychiatric normal mood/affect. Heme/Lymph/Immune no lymphadenopathy. Differential Diagnosis: Includes but is not limited to in a particular order; hypertension, kidney injury, anxiety, stress induced hypertension Medical Decision Making: Plan for this patient basic blood work, check kidney function, EKG. She has no symptoms. She is asymptomatic hypertension. I discussed at length with the patient about following her blood pressure twice a day keeping a log. If she continues to have high blood pressure readings I recommend that she follows up with primary care doctor. She is fine with this plan. Re-evaluation: EKG interpretation by me on record in [employer] system. Impression time of EKG 1349, AFib rate of 102. PVC present. Otherwise I do not appreciate acute ischemic change. 1445: Patient's blood work is reviewed. Unremarkable. EKG shows AFib without acute ischemia. Her blood pressures improved here she has been resting comfortably she has no focal complaints. She denies chest pain or shortness of breath. Denies headache. Denies focal numbness or tingling. Her blood pressure initially was 150s over 89. I do recommend she follows up with primary care doctor keep a blood pressure log. Return emergency room she develops any symptoms or higher blood pressure. She understands 1555: Patient blood pressure improved 132/80 while resting in emergency room. Source: Patient - Personal History Current Tetanus Diphtheria and Acellular Pertussis (TDAP): Yes - Medical/Surgical History Hx Asthma: No Hx Chronic Respiratory Disease: No Hx Diabetes: No Hx Cardiac Disease: Yes Hx Renal Disease: No Hx Cirrhosis: No Hx Alcoholism: No Hx HIV/AIDS: No Hx Splenectomy or Spleen Trauma: No Other PMH: HTN, [place], cardiac cath, bilat partial knee replacement, pacemaker- bradycardia, angina, retinal tear, CPAP, MALINI, parathyroidectomy Jun 19 2014, pericarditis, afib - Social History Smoking Status: Never smoked Constitutional: Initial Vital Signs Temperature (C) 36.6 C 05/21/17 12:21 Heart Rate 92 05/21/17 12:21 Respiratory Rate 18 05/21/17 12:21 Blood Pressure 163/113 H 05/21/17 12:21 O2 Sat (%) 91 L 05/21/17 12:21 O2 Delivery Mode Room Air Allergies/Adverse Reactions: amlodipine besylate [From Norvasc] Allergy (Severe, Verified 05/21/17 12:40) Rash adhesive tape Allergy (Intermediate, Verified 05/21/17 12:40) ITCHING BURNING RED RASH apixaban Allergy (Intermediate, Verified 05/21/17 12:40) Other-Enter Comments iodine [Iodine] Allergy (Unknown, Verified 05/21/17 12:40) Unknown contrast Allergy (Severe, Uncoded 06/06/16 17:59) Anaphylaxis Home Medications: Medication Instructions Recorded Diltiazem HCl [Diltiazem 24Hr Cd] 240 mg PO BID 12/11/11 Multivitamins [Multivitamin (*)] 1 each PO DAILY 02/26/15 Calcium Carbonate [Tums 500MG (*)] 500 mg PO DAILY PRN 06/06/16 Levothyroxine [Synthroid 50 mcg 50 mcg PO DAILY06 06/06/16 (*)] Rivaroxaban [Xarelto] 20 mg PO DAILY@18 06/06/16 Hydrochlorothiazide [HCTZ (*)] 25 mg PO DAILY 10/28/16 Propylene Glycol/Peg 400/Pf 1 each OP HS PRN 10/28/16 [Systane 0.3-0.4% Eye Drops] diphenhydrAMINE [Benadryl 50 MG 50 mg PO HS 10/28/16 (*)] Benzonatate [Tessalon Pearles] 100 mg PO TID PRN #20 cap 11/14/16 Carvedilol [Coreg (*)] 3.125 mg PO BIDMEAL #60 tab 11/14/16 Docusate Sodium [Colace 100 MG (*)] 100 mg PO BID PRN #0 cap 11/14/16 Ibuprofen [Motrin (*)] 600 mg PO Q6HRS PRN #0 tab 11/14/16 Levalbuterol Inhaler [Xopenex Hfa 1 puffs IH TID PRN #1 mdi 11/14/16 Inhaler (*)] guaiFENesin [Mucinex 600 MG (*)] 600 mg PO BID tab.er 11/14/16 guaiFENesin/DEXTROMETHORPHAN 10 ml PO Q4HRS PRN #150 ml 11/14/16 [Robitussin Dm Oral Liquid (*)] Medical Decision Making - Data Points Laboratory Results: Laboratory Results 05/21/17 12:55 05/21/17 12:55 05/21/17 05/21/17 12:55 12:55 WBC 9.02 10^3/uL 10^3/uL (3.80-9.50) RBC 4.64 10^6/uL 10^6/uL (4.18-5.33) Hgb 14.5 g/dL g/dL (12.6-16.3) Hct 42.8 % % (38.0-47.0) MCV 92.2 fL fL (81.5-99.8) MCH 31.3 pg pg (27.9-34.1) MCHC 33.9 g/dL g/dL (32.4-36.7) RDW 14.9 % % (11.5-15.2) Plt Count 229 10^3/uL 10^3/uL (150-400) MPV 10.1 fL fL (8.7-11.7) Neut % (Auto) 68.9 % % (39.3-74.2) Lymph % (Auto) 21.6 % % (15.0-45.0) [place] % (Auto) 5.8 % % (4.5-13.0) Eos % (Auto) 2.5 % % (0.6-7.6) Baso % (Auto) 0.9 % % (0.3-1.7) Nucleat RBC Rel Count 0.0 % % (0.0-0.2) Absolute Neuts (auto) 6.21 10^3/uL 10^3/uL (1.70-6.50) Absolute Lymphs (auto) 1.95 10^3/uL 10^3/uL (1.00-3.00) Absolute Monos (auto) 0.52 10^3/uL 10^3/uL (0.30-0.80) Absolute Eos (auto) 0.23 10^3/uL 10^3/uL (0.03-0.40) Absolute Basos (auto) 0.08 10^3/uL 10^3/uL (0.02-0.10) Absolute Nucleated RBC 0.00 10^3/uL 10^3/uL (0-0.01) Immature Gran % 0.3 % % (0.0-1.1) Immature Gran # 0.03 10^3/uL 10^3/uL (0.00-0.10) Sodium 140 mEq/L mEq/L (134-144) Potassium 3.3 mEq/L L mEq/L (3.5-5.2) Chloride 99 mEq/L mEq/L (97-110) Carbon Dioxide 25 mEq/l mEq/l (22-31) Anion Gap 16 mEq/L mEq/L (8-16) BUN 24 mg/dL H mg/dL (7-23) Creatinine 1.0 mg/dL mg/dL (0.6-1.0) Estimated GFR 53 Glucose 97 mg/dL mg/dL (70-100) Calcium 9.9 mg/dL mg/dL (8.5-10.4) Departure - Departure Disposition: Home, Routine, Self-Care Clinical Impression: Hypertension Qualifiers: Hypertension type: unspecified Qualified Code(s): I10 - Essential (primary) hypertension Condition: Good Instructions: Hypertension (ED) Additional Instructions: 1. Keep a close eye on her blood pressure. Please check this twice a day. 2. Keep a log of her blood pressure 3. Return emergency room immediately if he develops higher blood pressure, or develops chest pain shortness of breath or severe headache. 4. Follow up with her primary care doctor. Referrals: SUREKHA BISHOP [Primary Care Provider] - As per Instructions
[2017-05-21 13:16] LABS: % IMMATURE GRANULYOCYTES 0.3 % (0.0-1.1); ABSOLUTE IMMATURE GRANULOCYTES 0.03 10^3/uL (0.00-0.10); ADD DIFF? NO; ADD MORPH? NO; ADD SCAN? NO; ATYPICAL LYMPHOCYTE FLAG 10 (0-99); FRAGMENT RBC FLAG 0 (0-99); HEMATOCRIT 42.8 % (38.0-47.0); HEMOGLOBIN 14.5 g/dL (12.6-16.3); LEFT SHIFT FLG 0 (0-99); LIPEMIA HEMOLYSIS FLAG 90 (0-99); MEAN CELL HEMOGLOBIN 31.3 pg (27.9-34.1); MEAN CELL HEMOGLOBIN CONCENTR. 33.9 g/dL (32.4-36.7); MEAN CELL VOLUME 92.2 fL (81.5-99.8); MEAN PLATELET VOLUME 10.1 fL (8.7-11.7); PLATELET CLUMPS FLAG 0 (0-99); PLATELET COUNT 229 10^3/uL (150-400); RED BLOOD CELL COUNT 4.64 10^6/uL (4.18-5.33); RED CELL DISTRIBUTION WIDTH 14.9 % (11.5-15.2)
[2017-05-21 13:22] LABS: ANION GAP 16 mEq/L (8-16); CALCIUM 9.9 mg/dL (8.5-10.4); CARBON DIOXIDE 25 mEq/l (22-31); CHLORIDE 99 mEq/L (97-110); GLOMERULAR FILTRATION RATE 53; GLUCOSE 97 mg/dL (70-100); POTASSIUM 3.3 mEq/L (3.5-5.2); SODIUM 140 mEq/L (134-144)
--- NOTE | 2017-05-21 13:51 | CPEKG ---
Heart Rate: 102 RR Interval: 588 QRSD Interval: 82 QT Interval: 380 QTC Interval: 496 QRS [place]: -43 T Wave [place]: 102 EKG Severity - ABNORMAL ECG - EKG Impression: AFIB/FLUT AND V-PACED COMPLEXES EKG Impression: LEFT ANTERIOR FASCICULAR BLOCK EKG Impression: NONSPECIFIC T ABNORMALITIES, LATERAL LEADS Electronically Signed By: Adam Garza 21-May-2017 21:44:06
[2017-05-21 15:57] VITALS: BP 130/83; PULSE 75; RESP 18; TEMP 97.5; O2SAT 96
== END 2017-05-21 15:57 | disposition home or self-care (01) ==
DX: I10 Essential (primary) hypertension (principal); I25.2 Old myocardial infarction; Z95.0 Presence of cardiac pacemaker

== ENCOUNTER → 2018-02-13 | Outpatient (CLI) | payer OTHER | LOC: FIMAGING 14:21 | PROVIDERS: ATTEND Internal Medicine | DX: N28.1 Cyst of kidney, acquired (principal); I10 Essential (primary) hypertension ==

== ENCOUNTER 2018-05-30 23:18 | Emergency (ER) | payer OTHER ==
[2018-05-30] MEDS ORDERED: NS 1,000 ML IV ONE (23:57)
--- NOTE | 2018-05-31 | EDPHY ---
H & P Stated Complaint: tinnitus, lightheaded rapid HR, nausea Time Seen by Provider: 05/30/18 23:59 HPI/ROS: HPI CHIEF COMPLAINT: Increased stress, heart rate, blood pressure, trinities, anxiety HISTORY OF PRESENT ILLNESS: Very pleasant 82-year-old female she presents emergency room feeling very anxious and stressed. She was delivered bad news today but close friend of her dying in a house fire. This caused her to be very stressed. 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 Denies chest pain or shortness of breath but does endorse nausea. She got up out of bed because of the ring inner ear was much more pronounced a normal took her blood pressure was elevated. This concerned her. She also reports that her heart rate was very fast. [place] nauseous. Began to have it tingling in the left side of her face. This is resolved. She states she does additionally suffer from migraines gets tingling in her left side her face but does not have a headache at this time. Patient denies any focal numbness or tingling at this time denies any focal weakness. Denies chest pain. Denies shortness of breath. Main complaint nausea, anxiety, increased stress. Past Medical History: Significant medical history for pericarditis, cardiac tamponade, pneumonia, bilateral pleural effusions, acute on chronic hypoxic respiratory failure, hyponatremia, AFib on Xarelto, Prinzmetal angina Past Surgical History: Denies recent surgical history but does have a left chest pacemaker. Social History: Denies drugs alcohol tobacco. Family History: Noncontributory ROS REVIEW OF SYSTEMS: 10 Systems were reviewed and negative with the exception of the elements mentioned in the history of present illness. Exam Constitutional elderly, nontoxic, anxious, triage nursing summary reviewed, vital signs reviewed, awake/alert. Vital signs noted at triage. Eyes normal conjunctivae and sclera, EOMI, PERRLA. HENT normal inspection, atraumatic, moist mucus membranes, no epistaxis, neck supple/ no meningismus, no raccoon eyes. Respiratory clear to auscultation bilaterally, normal breath sounds, no respiratory distress, no wheezing. Cardiovascular rate normal, regular rhythm, no murmur, no edema, distal pulses normal. Gastrointestinal soft, non-tender, no rebound, no guarding, normal bowel sounds, no distension, no pulsatile mass. Genitourinary no CVA tenderness. Musculoskeletal no midline vertebral tenderness, full range of motion, no calf swelling, no tenderness of extremities, no meningismus, good pulses, neurovascularly intact. Skin pink, warm, & dry, no rash, skin atraumatic. Neurologic awake, alert and oriented x 3, AAOx3, moves all 4 extremities equally, motor intact, sensory intact, CN II-XII intact, normal cerebellar, normal vision, normal speech. Psychiatric normal mood/affect. Heme/Lymph/Immune no lymphadenopathy. Differential Diagnosis: Includes but is not limited to in a particular order acute anxiety attack, panic attack, stress, cardiac arrhythmia, AFib with RVR, ACS Medical Decision Making: Plan for this patient IV establishment IV fluid bolus , IV Ativan for anxiety, basic electrolytes, CBC, troponin, EKG, chest x-ray Re-evaluation: EKG interpretation by me on record in [employer] system. Impression time of EKG 2339: AFib rate of 112, PVC present. Left anterior fascicular block present. Compared to patient's old EKG dated 06/06/2016 very similar morphology. 0254: Patient feeling somewhat better. Received IV fluids. [place] initially when she got here was 133, is down to 85 at this time. She denies any chest pain or shortness of breath. Plan for repeat EKG repeat troponin. If normal and she feels comfortable going home allow her to go home. She is a lot of stress at this time and anxiety due to a close friend dying in a house fire. EKG interpretation by me on record in [employer] system. Impression time of EKG 3:04 a.m. This is a repeat EKG, AFib rate of 96, left anterior fascicular block present. T-wave abnormality lead 1 and aVL, V1 V2. No ST elevation. 0352: Re-evaluation at this time patient states she feels 85% better however after further discussion with the patient she still feels anxious. Given her tachycardia, stress, increased blood pressure, you for the option about being observed today on going home she has comfortable stain today and would like more anxiety medicine this time. Will ask the hospitalist service for observation today for tachycardia, hypertension, increased stress. 0418AM: Consult the hospitalist service shanice Sam discussed with the patient the patient does not want stay in the hospital she would rather go home. Again offered her hospital admission however she has declined this. Patient wants to go home. She states she does feel much better. Return precautions discussed she understands return emergency develops worsening symptoms this includes syncope, chest pain, shortness of breath, high blood pressure not doing well. She is comfortable this plan. Source: Patient - Personal History Current Tetanus Diphtheria and Acellular Pertussis (TDAP): Unsure - Medical/Surgical History Hx Asthma: No Hx Chronic Respiratory Disease: No Hx Diabetes: No Hx Cardiac Disease: Yes Hx Renal Disease: No Hx Cirrhosis: No Hx Alcoholism: No Hx HIV/AIDS: No Hx Splenectomy or Spleen Trauma: No Other PMH: HTN, [place], cardiac cath, bilat partial knee replacement, pacemaker- bradycardia, angina, retinal tear, CPAP, MALINI, parathyroidectomy Jun 19 2014, pericarditis, afib - Social History Smoking Status: Never smoked Constitutional: Initial Vital Signs Temperature (C) 36.6 C 05/30/18 23:22 Heart Rate 121 H 05/30/18 23:22 Respiratory Rate 20 05/30/18 23:22 Blood Pressure 89/76 L 05/30/18 23:22 O2 Sat (%) 95 05/30/18 23:22 O2 Delivery Mode Room Air O2 (L/minute) 2 Allergies/Adverse Reactions: amlodipine besylate [From Norvasc] Allergy (Severe, Verified 05/31/18 04:28) Rash adhesive tape Allergy (Intermediate, Verified 05/31/18 04:28) ITCHING BURNING RED RASH apixaban Allergy (Intermediate, Verified 05/31/18 04:28) Other-Enter Comments iodine [Iodine] Allergy (Unknown, Verified 05/31/18 04:28) Unknown contrast Allergy (Severe, Uncoded 05/31/18 04:28) Anaphylaxis Home Medications: Medication Instructions Recorded Diltiazem HCl [Diltiazem 24Hr Cd] 240 mg PO BID 12/11/11 Multivitamins [Multivitamin (*)] 1 each PO DAILY 02/26/15 Calcium Carbonate [Tums 500MG (*)] 500 mg PO DAILY PRN 06/06/16 Levothyroxine [Synthroid 50 mcg 50 mcg PO DAILY06 06/06/16 (*)] Rivaroxaban [Xarelto] 20 mg PO DAILY@18 06/06/16 Hydrochlorothiazide [HCTZ (*)] 25 mg PO DAILY 10/28/16 Propylene Glycol/Peg 400/Pf 1 each OP HS PRN 10/28/16 [Systane 0.3-0.4% Eye Drops] diphenhydrAMINE [Benadryl 50 MG 50 mg PO HS 10/28/16 (*)] Benzonatate [Tessalon Pearles] 100 mg PO TID PRN #20 cap 11/14/16 Carvedilol [Coreg (*)] 3.125 mg PO BIDMEAL #60 tab 11/14/16 Docusate Sodium [Colace 100 MG (*)] 100 mg PO BID PRN #0 cap 11/14/16 Ibuprofen [Motrin (*)] 600 mg PO Q6HRS PRN #0 tab 11/14/16 Levalbuterol Inhaler [Xopenex Hfa 1 puffs IH TID PRN #1 mdi 11/14/16 Inhaler (*)] guaiFENesin [Mucinex 600 MG (*)] 600 mg PO BID tab.er 11/14/16 guaiFENesin/DEXTROMETHORPHAN 10 ml PO Q4HRS PRN #150 ml 11/14/16 [Robitussin Dm Oral Liquid (*)] Medical Decision Making - Data Points Laboratory Results: Laboratory Results 05/30/18 23:50 05/30/18 23:50 Medications Given: Discontinued Medications Sodium Chloride (Ns) 1,000 mls @ 0 mls/hr IV EDNOW ONE; Wide Open PRN Reason: Protocol Stop: 05/30/18 23:58 Last Admin: 05/31/18 00:02 Dose: 1,000 mls Lorazepam (Ativan Injection) 1 mg IVP EDNOW ONE Stop: 05/31/18 00:11 Last Admin: 05/31/18 00:20 Dose: 1 mg Lorazepam (Ativan Injection) 1 mg IVP EDNOW ONE Stop: 05/31/18 03:52 Last Admin: 05/31/18 03:55 Dose: 1 mg Point of Care Test Results: Chemistry 05/31/18 05/30/18 03:00 23:51 POC Troponin I 0.01 ng/mL ng/mL 0.01 ng/mL ng/mL (0.00-0.08) (0.00-0.08) Departure - Departure Disposition: Home, Routine, Self-Care Clinical Impression: Anxiety, Tachycardia Atrial fibrillation Qualifiers: Atrial fibrillation type: unspecified Qualified Code(s): I48.91 - Unspecified atrial fibrillation Hypertension Qualifiers: Hypertension type: unspecified Qualified Code(s): I10 - Essential (primary) hypertension Condition: Fair Instructions: Hypertension (ED), Anxiety (ED) Additional Instructions: 1. Return emergency room if he develops worsening symptoms this includes passing out, chest pain, shortness of breath or not doing well. Referrals: SUREKHA BISHOP [Primary Care Provider] - As per Instructions
[2018-05-31 00:06] LABS: PLATELET COUNT 268 10^3/uL (150-400)
[2018-05-31] MEDS ORDERED: LORazepam 2 MG/ML INJ IVP ONE ×2 (00:10→03:51)
[2018-05-31 00:14] LABS: INR 2.22 (0.83-1.16); PROTIME(PATIENT) 24.6 SEC (12.0-15.0)
[2018-05-31 04:30] VITALS: BP 112/67
--- NOTE | 2018-06-07 07:51 | CPEKG ---
Test Reason : OPEN Blood Pressure : / mmHG Vent. Rate : 112 BPM Atrial Rate : 188 BPM P-R Int : 065 ms QRS Dur : 087 ms QT Int : 388 ms P-R-T Axes : 000 -47 108 degrees QTc Int : 530 ms Afib/flut and V-paced complexes Left anterior fascicular block Repol abnrm suggests ischemia, anterolateral Prolonged QT interval Confirmed by Adam Garza ([id number]) on 06/07/2018 7:50:31 AM Referred By: Confirmed By:Adam Garza
--- NOTE | 2018-06-07 07:51 | CPEKG ---
Test Reason : OPEN Blood Pressure : / mmHG Vent. Rate : 096 BPM Atrial Rate : 000 BPM P-R Int : 187 ms QRS Dur : 085 ms QT Int : 396 ms P-R-T Axes : 000 -41 099 degrees QTc Int : 501 ms Afib/flut and V-paced complexes Left anterior fascicular block Abnormal R-wave progression, early transition Abnrm T, consider ischemia, anterolateral lds Prolonged QT interval Confirmed by Adam Garza ([id number]) on 06/07/2018 7:50:31 AM Referred By: Confirmed By:Adam Garza
== END 2018-05-31 05:31 | disposition home or self-care (01) ==
LOC: UNDOADMOB 05-31 04:00
DX: F41.9 Anxiety disorder, unspecified (principal); R00.0 Tachycardia, unspecified; E86.9 Volume depletion, unspecified; I48.91 Unspecified atrial fibrillation; I10 Essential (primary) hypertension; R11.0 Nausea; H93.11 Tinnitus, right ear; G47.33 Obstructive sleep apnea (adult) (pediatric); I25.2 Old myocardial infarction; Z79.01 Long term (current) use of anticoagulants; Z95.0 Presence of cardiac pacemaker; Z96.653 Presence of artificial knee joint, bilateral
CPT/HCPCS: 71045; 93005; 96361; 96374; 96376; 99285; J2060; 84484-PO

== ENCOUNTER 2018-08-01 03:06 | Observation (INO) | payer OTHER ==
--- NOTE | 2018-08-01 03:22 | EDPHY ---
H & P Stated Complaint: CP/SOB/fatigue since 2229 Time Seen by Provider: 08/01/18 03:34 HPI/ROS: Chief Complaint: Chest pain, shortness of breath HPI: 83-year-old woman with a history of Prinzmetal's angina, atrial fibrillation on Xarelto, acute on chronic respiratory failure presenting with worsening chest pain. Generally she has been having increasing fatigue for the last couple of weeks, and she has been having episodes of chest pain for the last couple of days. These have required the use of nitroglycerin. She has not required nitroglycerin for in over a year. This morning she took 2 nitroglycerin without any relief. She states that symptoms began about 10:00 a.m. While laying in bed. She began feeling pain in the center of her chest which radiated to her left jaw. She also began feeling short of breath. These are similar to prior episodes. After receiving no relief with nitroglycerin she asked her abraded the hospital. She is now pain-free. Last symptoms were about an hour ago. No recent illness. No fevers or chills. No cough. No nausea or vomiting. She has been taking her medications as prescribed. ROS: 10 systems were reviewed and were negative except those elements noted in the HPI. PMH: Prinzmetal's angina, atrial fibrillation on Xarelto, pericarditis with tamponade, pneumonia, hyponatremia. Pacemaker Social History: No smoking, no alcohol, no recreational drug use Family History: non-contributory Physical Exam: Gen: Awake, Alert, No Distress HEENT: Nose: no rhinorrhea Eyes: PERRLA, EOMI Mouth: Moist mucosa Neck: Supple, no JVD Chest: nontender, lungs clear to auscultation Heart: S1, S2 normal, no murmur Abd: Soft, non-tender, no guarding Back: no CVA tenderness, no midline tenderness Ext: no edema, non-tender Skin: no rash Neuro: CN II-XII intact, Sensation grossly intact, Strength 5/5 in bilateral upper and lower extremities - Personal History Current Tetanus/Diphtheria Vaccine: Unsure - Medical/Surgical History Hx Asthma: No Hx Chronic Respiratory Disease: No Hx Diabetes: No Hx Cardiac Disease: Yes Hx Renal Disease: No Hx Cirrhosis: No Hx Alcoholism: No Hx HIV/AIDS: No Hx Splenectomy or Spleen Trauma: No Other PMH: HTN, [place], cardiac cath, bilat partial knee replacement, pacemaker- bradycardia, angina, retinal tear, CPAP, MALINI, parathyroidectomy Jun 19 2014, pericarditis, afib - Social History Smoking Status: Never smoked Constitutional: Initial Vital Signs Temperature (C) 36.4 C 08/01/18 03:06 Heart Rate 122 H 08/01/18 03:06 Respiratory Rate 18 08/01/18 03:06 Blood Pressure 138/83 H 08/01/18 03:06 O2 Sat (%) 95 08/01/18 03:06 O2 Delivery Mode Room Air Allergies/Adverse Reactions: amlodipine besylate [From Norvasc] Allergy (Severe, Verified 08/01/18 03:11) Rash adhesive tape Allergy (Intermediate, Verified 08/01/18 03:11) ITCHING BURNING RED RASH apixaban Allergy (Intermediate, Verified 08/01/18 03:11) Other-Enter Comments iodine [Iodine] Allergy (Unknown, Verified 08/01/18 03:11) Unknown contrast Allergy (Severe, Uncoded 05/31/18 04:28) Anaphylaxis Home Medications: Medication Instructions Recorded Diltiazem HCl [Diltiazem 24Hr Cd] 240 mg PO BID 12/11/11 Multivitamins [Multivitamin (*)] 1 each PO DAILY 02/26/15 Calcium Carbonate [Tums 500MG (*)] 500 mg PO DAILY PRN 06/06/16 Levothyroxine [Synthroid 50 mcg 50 mcg PO DAILY06 06/06/16 (*)] Rivaroxaban [Xarelto] 20 mg PO DAILY@18 06/06/16 Propylene Glycol/Peg 400/Pf 1 each OP HS PRN 10/28/16 [Systane 0.3-0.4% Eye Drops] diphenhydrAMINE [Benadryl 50 MG 50 mg PO HS 10/28/16 (*)] Docusate Sodium [Colace 100 MG (*)] 100 mg PO BID PRN #0 cap 11/14/16 Ibuprofen [Motrin (*)] 600 mg PO Q6HRS PRN #0 tab 11/14/16 Levalbuterol Inhaler [Xopenex Hfa 1 puffs IH TID PRN #1 mdi 11/14/16 Inhaler (*)] Medical Decision Making - Diagnostics EKG Interpretation: ECG time 3:22 a.m. Atrial fibrillation with ventricular rate of 113, left anterior fascicular block, unchanged compared to 05/30/2018. ED Course/Re-evaluation: EKG is unchanged from prior. Initial troponin is normal. Given the change in her symptoms she will require admission for further evaluation. I have paged the hospitalist. - Data Points Laboratory Results: Laboratory Results 08/01/18 03:25 08/01/18 03:25 08/01/18 08/01/18 08/01/18 03:30 03:25 03:25 WBC 10.48 10^3/uL H 10^3/uL (3.80-9.50) RBC 4.63 10^6/uL 10^6/uL (4.18-5.33) Hgb 14.4 g/dL g/dL (12.6-16.3) Hct 42.7 % % (38.0-47.0) MCV 92.2 fL fL (81.5-99.8) MCH 31.1 pg pg (27.9-34.1) MCHC 33.7 g/dL g/dL (32.4-36.7) RDW 14.5 % % (11.5-15.2) Plt Count 257 10^3/uL 10^3/uL (150-400) MPV 9.7 fL fL (8.7-11.7) Neut % (Auto) Pending Lymph % (Auto) Pending [place] % (Auto) Pending Eos % (Auto) Pending Baso % (Auto) Pending Nucleat RBC Rel Count Pending Absolute Neuts (auto) Pending Absolute Lymphs (auto) Pending Absolute Monos (auto) Pending Absolute Eos (auto) Pending Absolute Basos (auto) Pending Absolute Nucleated RBC Pending Immature Gran % Pending Immature Gran # Pending Platelet Estimate Pending Sodium 136 mEq/L mEq/L (135-145) Potassium 3.9 mEq/L mEq/L (3.5-5.2) Chloride 103 mEq/L mEq/L (97-110) Carbon Dioxide 19 mEq/l L mEq/l (22-31) Anion Gap 14 mEq/L mEq/L (6-14) BUN 27 mg/dL H mg/dL (7-23) Creatinine 1.1 mg/dL H mg/dL (0.6-1.0) Estimated GFR 47 Glucose 107 mg/dL H mg/dL (70-100) Calcium 10.2 mg/dL mg/dL (8.5-10.4) POC Troponin I 0.01 ng/mL ng/mL (0.00-0.08) Point of Care Test Results: Chemistry 08/01/18 03:30 POC Troponin I 0.01 ng/mL ng/mL (0.00-0.08) Departure - Departure Disposition: [facility] Inpatient Acute Clinical Impression: Chest pain, Atrial fibrillation with RVR, Unstable angina Condition: Fair Referrals: SUREKHA BISHOP [Primary Care Provider] - As per Instructions
[2018-08-01 03:41] LABS: PLATELET COUNT 257 10^3/uL (150-400)
[2018-08-01] MEDS ORDERED: ACETAMINOPHEN 325 MG TAB PO PRN (03:55)
[2018-08-01] MEDS ORDERED: ONDANSETRON DISINTEGRATING 4 MG TAB PO PRN (03:55)
[2018-08-01] MEDS ORDERED: ONDANSETRON 4 MG/2 ML VIAL IVP PRN (03:55)
[2018-08-01] MEDS ORDERED: NITROGLYCERIN 0.4 MG BTL SL PRN (03:57)
--- NOTE | 2018-08-01 04:18 | PDGENHP ---
History and Physical - Chief Complaint Chest pain - History of Present Illness 83 yo F w/ hx of SSS s/p PPM, AF, and Prinzmetal's angina presents with chest pain. The patient tells me she developed pain while in bed this evening. The pain is left sided with discomfort in her neck as well. The pain episodes are brief but have been happening on and off for the last several hours. She took a nitroglycerin with some relief. She tells me she has not had any angina in over a year. She was diagnosed with Prinzmetal's angina in 2001. Her last stress test was in 2015. She follows with Dr. Silverio as an outpatient. She has also been having mild vertigo-like symptoms for about two weeks with nausea and dizziness related to her head position. This, in combination with AF and AV elinor blockers, would make a treadmill test unfeasible. Case discussed with ED physician Dr. Cline; records reviewed and summarized above. History Information - Allergies/Home Medication List Allergies/Adverse Reactions: amlodipine besylate [From Norvas] Allergy (Severe, Verified 08/01/18 03:11) Rash adhesive tape Allergy (Intermediate, Verified 08/01/18 03:11) ITCHING BURNING RED RASH apixaban Allergy (Intermediate, Verified 08/01/18 03:11) Other-Enter Comments iodine [Iodine] Allergy (Unknown, Verified 08/01/18 03:11) Unknown contrast Allergy (Severe, Uncoded 05/31/18 04:28) Anaphylaxis Home Medications: Diltiazem HCl [Diltiazem 24Hr Cd] 240 mg PO BID 12/11/11 [Last Taken 10/27/16 21 :00] Multivitamins [Multivitamin (*)] 1 each PO DAILY 02/26/15 [Last Taken 10/27/16] Calcium Carbonate [Tums 500MG (*)] 500 mg PO DAILY PRN 06/06/16 [Last Taken Unknown] Levothyroxine [Synthroid 50 mcg (*)] 50 mcg PO DAILY06 06/06/16 [Last Taken ] Rivaroxaban [Xarelto] 20 mg PO DAILY@18 06/06/16 [Last Taken 10/27/16] Propylene Glycol/Peg 400/Pf [Systane 0.3-0.4% Eye Drops] 1 each OP HS PRN [Last Taken Unknown] diphenhydrAMINE [Benadryl 50 MG (*)] 50 mg PO HS 10/28/16 [Last Taken 10/27/16] I have personally reviewed and updated: family history, medical history - Past Medical History atrial fibrillation, hypertension Additional medical history: Sick sinus syndrome - Surgical History Reports: pacemaker/AICD Additional surgical history: bilateral knee surgeries - Family History Positive for: CAD (early CAD in her Father ([place] in his 30s)) - Social History Smoking Status: Never smoked Additional social history: Lives independently with her , who is present at the bedside. Retired clinical psychologist Review of Systems Review of Systems: ROS: 10pt was reviewed & negative except for what was stated in HPI & below Physical Exam Physical Exam: Temp Pulse Resp BP Pulse Ox 36.4 C 110 H 16 135/78 H 94 08/01/18 03:06 08/01/18 04:09 08/01/18 04:09 08/01/18 04:09 08/01/18 04:09 Constitutional: appears nourished, uncomfortable Eyes: PERRL, EOMI Ears, Nose, Mouth, Throat: moist mucous membranes, no oral mucosal ulcers Cardiovascular: systolic murmur, irregularly irregular Respiratory: no respiratory distress, clear to auscultation Gastrointestinal: normoactive bowel sounds, soft, non-tender abdomen Skin: warm, normal color Neurologic: AAOx3, CN II-XII Intact Psychiatric: interacting appropriately, not anxious Lab Data & Imaging Review 08/01/18 03:25 08/01/18 03:25 WBC 10.48 10^3/uL (3.80-9.50) H 08/01/18 03:25 RBC 4.63 10^6/uL (4.18-5.33) 08/01/18 03:25 Hgb 14.4 g/dL (12.6-16.3) 08/01/18 03:25 Hct 42.7 % (38.0-47.0) 08/01/18 03:25 MCV 92.2 fL (81.5-99.8) 08/01/18 03:25 MCH 31.1 pg (27.9-34.1) 08/01/18 03:25 MCHC 33.7 g/dL (32.4-36.7) 08/01/18 03:25 RDW 14.5 % (11.5-15.2) 08/01/18 03:25 Plt Count 257 10^3/uL (150-400) 08/01/18 03:25 MPV 9.7 fL (8.7-11.7) 08/01/18 03:25 Neut % (Auto) 37.7 % (39.3-74.2) L 08/01/18 03:25 Lymph % (Auto) 51.1 % (15.0-45.0) H 08/01/18 03:25 Polk % (Auto) 7.2 % (4.5-13.0) 08/01/18 03:25 Eos % (Auto) 3.0 % (0.6-7.6) 08/01/18 03:25 Baso % (Auto) 0.8 % (0.3-1.7) 08/01/18 03:25 Nucleat RBC Rel Count 0.0 % (0.0-0.2) 08/01/18 03:25 Absolute Neuts (auto) 3.95 10^3/uL (1.70-6.50) 08/01/18 03:25 Absolute Lymphs (auto) 5.36 10^3/uL (1.00-3.00) H 08/01/18 03:25 Absolute Monos (auto) 0.75 10^3/uL (0.30-0.80) 08/01/18 03:25 Absolute Eos (auto) 0.31 10^3/uL (0.03-0.40) 08/01/18 03:25 Absolute Basos (auto) 0.08 10^3/uL (0.02-0.10) 08/01/18 03:25 Absolute Nucleated RBC 0.00 10^3/uL (0-0.01) 08/01/18 03:25 Immature Gran % 0.2 % (0.0-1.1) 08/01/18 03:25 Immature Gran # 0.02 10^3/uL (0.00-0.10) 08/01/18 03:25 RBC/WBC/PLT Morphology TNP 08/01/18 03:25 Platelet Estimate TNP 08/01/18 03:25 Sodium 136 mEq/L (135-145) 08/01/18 03:25 Potassium 3.9 mEq/L (3.5-5.2) 08/01/18 03:25 Chloride 103 mEq/L (97-110) 08/01/18 03:25 Carbon Dioxide 19 mEq/l (22-31) L 08/01/18 03:25 Anion Gap 14 mEq/L (6-14) 08/01/18 03:25 BUN 27 mg/dL (7-23) H 08/01/18 03:25 Creatinine 1.1 mg/dL (0.6-1.0) H 08/01/18 03:25 Estimated GFR 47 08/01/18 03:25 Glucose 107 mg/dL (70-100) H 08/01/18 03:25 Calcium 10.2 mg/dL (8.5-10.4) 08/01/18 03:25 POC Troponin I 0.01 ng/mL (0.00-0.08) 08/01/18 03:30 EKG Interpretation: Positive for: ST depression (Lateral leads, stable compared to prior) EKG additional interpertation: AF, some V-pacing Assessment & Plan Assessment: 83 yo F w/ hx of SSS s/p PPM, AF, and Prinzmetal's angina presents with chest pain. Plan: 1. Chest pain - On and off left sided chest pain with radiation to left neck starting this evening. Initial troponin negative and ECG (personally reviewed/ interpreted) without clear signs of acute ischemia. She has a history of Prinzmetal's angina but states she has not had angina related to this for at least a year. HEART score of 6 denoting need for further evaluation. - Observe in PCU - Monitor on telemetry, trend cardiac enzymes - ECG, NTG PRN for chest pain - Will order Lexiscan, nuclear stress study noting inability to exercise in setting of ongoing vertigo symptoms 2. Permanent AF - On diltiazem and Xarelto as an outpatient. - Monitor on telemetry - Continue home medications pending reconciliation 3. SSS - S/p PPM 4. Hx Prinzmetal's angina - Diagnosed in 2001, followed by Dr. Eliazar Silverio as an outpatient. Diet - NPO Code - Full Ppx - Xarelto Dispo - Admit under observation status
[2018-08-01] MEDS ORDERED: REGADENOSON 0.4 MG/5 ML SYR IVP ONE (09:38)
--- NOTE | 2018-08-01 10:29 | PDCARST ---
CAR Stress Test Results Type of Stress Test: Lexiscan stress test Indication: cp Description of Procedure: After informed consent was obtained, pt was established to ECG, blood pressure, HR and oximetry monitoring. STRESS EKG AND HEMODYNAMIC DATA. Resting heart rate: 102 BPM. Resting ECG: AF. Resting blood pressure: 136/84 mmHg. O2 saturation at rest: 95%. Peak heart rate: 130 BPM. Peak blood pressure: 134/86 mmHg. Arrhythmias: AF throughout. Symptoms: The patient experienced no typical symptoms of angina during stress or recovery. Stress/Infusion ECG: No change in rhythm with no significant ST/T wave changes. Stress/infusion O2 saturation: 96% Impression: Uneventful Lexiscan infusion Conclusion: Await nuclear imaging.
[2018-08-01 11:10] VITALS: BP 129/68
[2018-08-01] MEDS ORDERED: DOCUSATE SODIUM 100 MG CAP PO PRN (12:42)
[2018-08-01] MEDS ORDERED: Propylene Glycol/Peg 400/Pf [Systane 0.3-0.4% Eye Drops] OP PRN (12:42)
[2018-08-01] MEDS ORDERED: SODIUM CL NASAL 45 ML BTL NS PRN (12:42)
[2018-08-01] MEDS ORDERED: DILTIAZEM CD 120 MG CAP PO SCH (13:15)
--- NOTE | 2018-08-01 15:51 | ASMTCMCOM ---
CM Note CM Note Notes: Pt is a 83 yo F, lives independently with her . Presents with chestpain and unstable angina. Pt underwent stress test today, results are pending. No CM needs identified at this time. Pt will likely be discharged independently. CM available if needs arise. Plan: independent Date Signed: 08/01/2018 03:51 PM Electronically Signed By:ИВАН Waite
--- NOTE | 2018-08-01 16:23 | HOSPPROG ---
Hospitalist Progress Note Assessment/Plan: 83 yo F AF and prinzmetal angina here w cp neg stress home see dc summary Subjective: neg stress Objective: Vital Signs Temp Pulse Resp BP Pulse Ox 36.6 C 110 H 15 129/68 H 92 08/01/18 11:06 08/01/18 13:14 08/01/18 11:06 08/01/18 11:06 08/01/18 11:06 Laboratory Results 08/01/18 07:56 07/31/18 08/01/18 08/02/18 05:59 05:59 05:59 Output Total 500 Balance -500 - Physical Exam Constitutional: no apparent distress, not in pain Eyes: anicteric sclera Ears, Nose, Mouth, Throat: moist mucous membranes, hearing normal Cardiovascular: regular rate and rhythym, no murmur, rub, or gallop Respiratory: no respiratory distress, no rales or rhonchi Gastrointestinal: normoactive bowel sounds, soft, non-tender abdomen Genitourinary: no bladder fullness Skin: warm Musculoskeletal: full muscle strength ICD10 Worksheet Patient Problems: Problems Problem Status Onset Atrial fibrillation with RVR Acute Chest pain Acute Unstable angina Acute Anxiety Acute Atrial fibrillation Acute Chest discomfort Acute Chronic Disease Mgmt/Transitional Care Acute Elevated troponin Acute Hypertension Acute Hypoxia Acute Malaise Acute Tachycardia Acute
[2018-08-01] MEDS ORDERED: RIVAROXABAN 20 MG TAB PO SCH (18:00)
--- NOTE | 2018-08-02 03:54 | GDS ---
[f rep st] DISCHARGE SUMMARY DISCHARGE DIAGNOSES: 1. Chest pain. 2. History of Prinzmetal's angina. 3. Atrial fibrillation. Please see admission history and physical by Dr. Gio Alexis. The patient presented with ch est pain, nonischemic EKG, negative troponins. Underwent Lexiscan today and was unremarkable. She w as in atrial fibrillation. She was discharged home on unchanged medication regimen. /[id number]/MODL
[2018-08-02] MEDS ORDERED: LEVOTHYROXINE 50 MCG TAB PO SCH (06:00)
--- NOTE | 2018-08-02 06:08 | CPEKG ---
Test Reason : OPEN Blood Pressure : / mmHG Vent. Rate : 113 BPM Atrial Rate : 155 BPM P-R Int : 127 ms QRS Dur : 087 ms QT Int : 340 ms P-R-T Axes : 000 -51 117 degrees QTc Int : 467 ms Atrial fibrillation Left anterior fascicular block Repol abnrm suggests ischemia, lateral leads Confirmed by James Cline [id number] on 08/02/2018 6:07:30 AM Referred By: James Cline Confirmed By:James Cline
== END 2018-08-01 17:39 | disposition home or self-care (01) ==
LOC: F2W 04:39
PROVIDERS: ADMIT Student in an Organized Health Care Education/Training Program; ATTEND Internal Medicine
PROC: 3E033RZ Introduction of Antiarrhythmic into Peripheral Vein, Percutaneous Approach (ICD-10-PCS; principal; 2018-08-01)
DX: R07.89 Other chest pain (principal); I48.1 Persistent atrial fibrillation; Z79.01 Long term (current) use of anticoagulants; Z95.0 Presence of cardiac pacemaker; I25.2 Old myocardial infarction; Z96.653 Presence of artificial knee joint, bilateral; G47.33 Obstructive sleep apnea (adult) (pediatric); E87.1 Hypo-osmolality and hyponatremia
CPT/HCPCS: 78452; 93005; 93017; 96374; 99285; A9500; G0378; J2405; J2785; 84484-ER